=== PATIENT | male | born 1940 | race Caucasian/White ===

== ENCOUNTER 2022-08-25 07:26 | Outpatient (RCR) | payer OTHER, SELFPAY | END 2022-11-20 09:09 | disposition home or self-care (01) | PROVIDERS: PCP Surgery; Visit Provider Family Medicine | DX: M47.816 Spondylosis without myelopathy or radiculopathy, lumbar region (principal); S39.012D Strain of muscle, fascia and tendon of lower back, subsequent encounter; Z51.89 Encounter for other specified aftercare | CPT/HCPCS: 97110; 97162 ==

== ENCOUNTER 2024-01-22 11:58 | Inpatient (IN) | payer MEDICARE, BC, SELFPAY ==
[2024-01-22] VITALS (99 sets, daily range): BP systolic 78–141; BP diastolic 44–77; PULSE 43–100; RESP 16–20; TEMP 36.3–36.9; O2SAT 82–100; BMI 24.3; BMI 25.4
--- NOTE | 2024-01-22 12:34 | ED.DIZZY ---
HPI - Dizziness General Time Seen by Provider: 12:34 <Brenda Sorensen MD - Last Filed: 01/22/24 16:19> Date Seen: 01/22/24 <Bernda Sorensen MD - Last Filed: 01/22/24 16:19> Chief Complaint: Dizziness/Vertigo <Brenda Sorensen MD - Last Filed: 01/22/24 16:19> Stated Complaint: doesnt feel right, sweating <Brenda Sorensen MD - Last Filed: 01/22/24 16:19> Time Seen by Provider: 01/22/24 12:43 <Brenda Sorensen MD - Last Filed: 01/22/24 16:19> Source: patient, RN notes reviewed and old records reviewed <Brenda Sorensen MD - Last Filed: 01/22/24 16:19> Mode of arrival: ambulatory <Brenda Sorensen MD - Last Filed: 01/22/24 16:19> Limitations: no limitations <Brenda Sorensen MD - Last Filed: 01/22/24 16:19> History of Present Illness HPI Narrative: There is very pleasant 84-year-old male with a history of coronary artery disease but no past history of heart attack or stents, history of polymyalgia rheumatica who comes to the emergency room not feeling well. Patient notes that last night he seemed more thirsty than normal and he noticed a pain on the top of his left foot. He did not recall any trauma in the area. Today he feels lightheaded and not well with achy muscles. He notes that the redness on his foot has now extended to his leg. Upon further reflection he does remember having a cut on his toenail on the same foot when he went for his pedicure last week. The toe itself does not hurt. He has not had a fever at home. He denies chest pain or shortness of breath. No history of MRSA or difficult to treat infections. Patient did have a history of polymyalgia rheumatica and was treated with methotrexate up until 1 year ago when he discontinued it. No problems since that time. <Brenda Sorensen MD - Last Filed: 01/22/24 16:19> Related Data Home Medications: Home Medications ?Medication ?Instructions ?Recorded ?Confirmed aspirin 81 mg tablet,delayed 81 mg PO DAILY 05/03/22 01/22/24 release ascorbic acid (vitamin C) 1,000 mg 1 g PO DAILY 01/22/24 01/22/24 tablet cephalexin 500 mg capsule 2,000 mg PO ONCE PRN 01/22/24 01/22/24 cholecalciferol (vitamin D3) 50 50 mcg PO DAILY 01/22/24 01/22/24 mcg (2,000 unit) capsule cyanocobalamin (vitamin B-12) 1,000 mcg sublingual DAILY 01/22/24 01/22/24 1,000 mcg sublingual lozenge ipratropium bromide 42 mcg (0.06 2 spray intranasal HS PRN 01/22/24 01/22/24 %) nasal spray magnesium 250 mg tablet 250 mg PO DAILY 01/22/24 01/22/24 pravastatin 10 mg tablet 10 mg PO HS 01/22/24 01/22/24 trazodone 50 mg tablet 25 - 50 mg PO HS PRN insomnia 01/22/24 01/22/24 <Brenda Sorensen MD - Last Filed: 01/22/24 16:19> Allergies/Adverse Reactions: Allergies Allergy/AdvReac Type Severity Reaction Status Date / Time amoxicillin Allergy Rash Verified 01/22/24 16:06 penicillin V Allergy Rash Verified 01/22/24 16:06 <Brenda Sorensen MD - Last Filed: 01/22/24 16:19> Review of Systems Status of ROS: Reports: 10 or more systems reviewed and unremarkable except as noted in History and below <Brenda Sorensen MD - Last Filed: 01/22/24 16:19> Const: Reports: fatigue; Denies: fever or chills <Brenda Sorensen MD - Last Filed: 01/22/24 16:19> Eyes: Denies: change in vision <Brenda Sorensen MD - Last Filed: 01/22/24 16:19> ENMT: Denies: throat pain, neck pain, throat swelling, nasal discharge or nasal congestion <Brenda Sorensen MD - Last Filed: 01/22/24 16:19> Cardio: Reports: lightheadedness; Denies: chest pain, palpitations, swelling of feet/ankles or shortness of breath with exertion <Brenda Sorensen MD - Last Filed: 01/22/24 16:19> Resp: Denies: shortness of breath or cough <Brenda Sorensen MD - Last Filed: 01/22/24 16:19> GI: Denies: abdominal pain, nausea or vomiting <Brenda Sorensen MD - Last Filed: 01/22/24 16:19> : Denies: painful urination <Brenda Sorensen MD - Last Filed: 01/22/24 16:19> Musculo: Reports: extremity pain; Denies: back pain or neck pain <Brenda Sorensen MD - Last Filed: 01/22/24 16:19> Integ/Breast: Reports: redness and skin tenderness <Brenda Sorensen MD - Last Filed: 01/22/24 16:19> Neuro: Denies: headache <Brenda Sorensen MD - Last Filed: 01/22/24 16:19> Endo: Reports: fatigue <Brenda Sorensen MD - Last Filed: 01/22/24 16:19> Allergy/Immuno: Denies: throat swelling <Brenda Sorensen MD - Last Filed: 01/22/24 16:19> [facility] Medical History: Medical History Polymyalgia rheumatica ?M35.3 - Polymyalgia rheumatica (ICD-10) Squamous carcinoma Rheumatoid arthritis ?M06.9 - Rheumatoid arthritis, unspecified (ICD-10) <Brenda Sorensen MD - Last Filed: 01/22/24 16:19> Surgical History: Surgical History History of arthroscopy of right knee (01/16/06) ?Z98.890 - Other specified postprocedural states (ICD-10) 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) ?Z96.641 - Presence of right artificial hip joint (ICD-10) 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/19) ?Z96.642 - Presence of left artificial hip joint (ICD-10) H/O prostatectomy ?Z90.79 - Acquired absence of other genital organ(s) (ICD-10) H/O inguinal hernia repair (~2007) ?Z98.890 - Other specified postprocedural states (ICD-10) ?Z87.19 - Personal history of other diseases of the digestive system (ICD-10) 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) ?Z98.890 - Other specified postprocedural states (ICD-10) 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 He is not in any acute distress. His mentation is normal as is his speech. He has some slight pallor. EOM is full, face symmetrical, moist mucous membranes. Heart is with a regular rate and rhythm. Lungs are clear bilaterally. Abdomen soft nontender. Examination of the lower extremity shows erythema on the dorsum of his foot with some PT erickson I extending up onto the knee it is light pink erythema. It is well demarcated. Examination of his toes shows the medial aspect of his distal nail appears to have been cut short in there is a slight scabbing or erythema around the medial edge of the nail. Otherwise moving all extremities. <Brenda Sorensen MD - Last Filed: 01/22/24 16:19> Const: Vital Signs, click to edit/add: Vital Signs - 24 hr 01/22/24 12:08 01/22/24 12:24 01/22/24 12:30 Temperature 97.3 F L Pulse Rate 57 L 61 Pulse Rate [Right Pulse Oximeter] 69 Respiratory Rate 18 Blood Pressure 85/49 L Blood Pressure [Ri ght Upper Arm] 79/44 L Pulse Oximetry 95 96 97 Oxygen Delivery Me thod Room Air 01/22/24 12:31 01/22/24 12:32 01/22/24 12:35 Temperature Pulse Rate 56 L 57 L Pulse Rate [Right Pulse Oximeter] Respiratory Rate Blood Pressure 79/46 L 81/49 L Blood Pressure [Ri ght Upper Arm] Pulse Oximetry 95 97 Oxygen Delivery Me thod 01/22/24 12:42 01/22/24 12:45 01/22/24 12:51 Temperature Pulse Rate 59 L 59 L 56 L Pulse Rate [Right Pulse Oximeter] Respiratory Rate Blood Pressure 82/48 L 78/47 L Blood Pressure [Ri ght Upper Arm] Pulse Oximetry 96 96 96 Oxygen Delivery Me thod 01/22/24 13:00 01/22/24 13:02 01/22/24 13:11 Temperature Pulse Rate 56 L 51 L 55 L Pulse Rate [Right Pulse Oximeter] Respiratory Rate Blood Pressure 79/47 L 79/47 L Blood Pressure [Ri ght Upper Arm] Pulse Oximetry 96 97 97 Oxygen Delivery Me thod 01/22/24 13:15 01/22/24 13:22 01/22/24 13:23 Temperature Pulse Rate 55 L 57 L 53 L Pulse Rate [Right Pulse Oximeter] Respiratory Rate Blood Pressure 83/49 L Blood Pressure [Ri ght Upper Arm] Pulse Oximetry 97 97 97 Oxygen Delivery Me thod 01/22/24 13:31 01/22/24 13:32 01/22/24 13:42 Temperature Pulse Rate 56 L 59 L 56 L Pulse Rate [Right Pulse Oximeter] Respiratory Rate Blood Pressure 82/46 L 87/44 L Blood Pressure [Ri ght Upper Arm] Pulse Oximetry 96 98 96 Oxygen Delivery Me thod 01/22/24 13:45 01/22/24 13:52 01/22/24 13:58 Temperature Pulse Rate 55 L 55 L 43 L Pulse Rate [Right Pulse Oximeter] Respiratory Rate Blood Pressure 80/48 L 83/46 L Blood Pressure [Ri ght Upper Arm] Pulse Oximetry 98 98 99 Oxygen Delivery Me thod 01/22/24 14:00 01/22/24 14:04 01/22/24 14:07 Temperature Pulse Rate 44 L 48 L 47 L Pulse Rate [Right Pulse Oximeter] Respiratory Rate Blood Pressure 120/62 116/66 Blood Pressure [Ri ght Upper Arm] Pulse Oximetry 97 100 94 Oxygen Delivery Me thod 01/22/24 14:12 01/22/24 14:15 01/22/24 14:17 Temperature Pulse Rate 61 45 L 54 L Pulse Rate [Right Pulse Oximeter] Respiratory Rate Blood Pressure 102/48 L 113/57 L Blood Pressure [Ri ght Upper Arm] Pulse Oximetry 95 96 96 Oxygen Delivery Me thod 01/22/24 14:22 01/22/24 14:27 01/22/24 14:30 Temperature Pulse Rate 64 61 52 L Pulse Rate [Right Pulse Oximeter] Respiratory Rate Blood Pressure 129/59 L 125/56 L Blood Pressure [Ri ght Upper Arm] Pulse Oximetry 97 92 97 Oxygen Delivery Me thod 01/22/24 14:32 01/22/24 14:33 01/22/24 14:37 Temperature Pulse Rate 46 L 53 L 49 L Pulse Rate [Right Pulse Oximeter] Respiratory Rate Blood Pressure 127/63 120/58 L Blood Pressure [Ri ght Upper Arm] Pulse Oximetry 97 96 98 Oxygen Delivery Me thod 01/22/24 14:41 01/22/24 14:45 01/22/24 14:46 Temperature Pulse Rate 52 L 49 L 58 L Pulse Rate [Right Pulse Oximeter] Respiratory Rate Blood Pressure 127/61 125/64 Blood Pressure [Ri ght Upper Arm] Pulse Oximetry 96 96 91 Oxygen Delivery Me thod 01/22/24 14:51 01/22/24 14:57 01/22/24 15:02 Temperature Pulse Rate 55 L 61 73 Pulse Rate [Right Pulse Oximeter] Respiratory Rate Blood Pressure 122/60 122/58 L Blood Pressure [Ri ght Upper Arm] Pulse Oximetry 98 82 L 97 Oxygen Delivery Me thod 01/22/24 15:12 01/22/24 15:15 01/22/24 15:22 Temperature Pulse Rate 67 63 72 Pulse Rate [Right Pulse Oximeter] Respiratory Rate Blood Pressure 130/50 L 98/51 L Blood Pressure [Ri ght Upper Arm] Pulse Oximetry 96 96 90 Oxygen Delivery Mn thod 01/22/24 15:30 01/22/24 15:32 01/22/24 15:42 Temperature Pulse Rate 86 87 77 Pulse Rate [Right Pulse Oximeter] Respiratory Rate Blood Pressure 95/67 105/76 Blood Pressure [Ri ght Upper Arm] Pulse Oximetry 95 95 96 Oxygen Delivery Me thod 01/22/24 15:45 01/22/24 15:52 01/22/24 16:17 Temperature Pulse Rate 83 100 Pulse Rate [Right Pulse Oximeter] Respiratory Rate Blood Pressure 111/63 Blood Pressure [Ri ght Upper Arm] Pulse Oximetry 96 95 Oxygen Delivery Me thod 01/22/24 16:19 01/22/24 16:21 01/22/24 16:32 Temperature Pulse Rate 96 96 Pulse Rate [Right Pulse Oximeter] Respiratory Rate Blood Pressure 120/73 104/52 L Blood Pressure [Ri ght Upper Arm] Pulse Oximetry 92 94 Oxygen Delivery Me thod 01/22/24 16:41 01/22/24 16:45 01/22/24 16:45 Temperature 98.0 F Pulse Rate 67 75 Pulse Rate [Right Pulse Oximeter] Respiratory Rate 20 Blood Pressure Blood Pressure [Ri ght Upper Arm] Pulse Oximetry 92 90 Oxygen Delivery Me thod 01/22/24 16:47 01/22/24 16:48 01/22/24 17:00 Temperature Pulse Rate 69 68 67 Pulse Rate [Right Pulse Oximeter] Respiratory Rate Blood Pressure 101/53 L Blood Pressure [Ri ght Upper Arm] Pulse Oximetry 91 95 95 Oxygen Delivery Me thod 01/22/24 17:01 01/22/24 17:15 01/22/24 17:16 Temperature Pulse Rate 66 62 63 Pulse Rate [Right Pulse Oximeter] Respiratory Rate Blood Pressure 95/50 L 90/49 L Blood Pressure [Ri ght Upper Arm] Pulse Oximetry 95 94 96 Oxygen Delivery Me thod 01/22/24 17:17 01/22/24 17:30 01/22/24 17:31 Temperature Pulse Rate 67 68 67 Pulse Rate [Right Pulse Oximeter] Respiratory Rate Blood Pressure 91/57 L Blood Pressure [Ri ght Upper Arm] Pulse Oximetry 96 94 94 Oxygen Delivery Me thod 01/22/24 17:45 01/22/24 17:47 Temperature Pulse Rate 80 71 Pulse Rate [Right Pulse Oximeter] Respiratory Rate Blood Pressure 98/71 Blood Pressure [Ri ght Upper Arm] Pulse Oximetry 94 95 Oxygen Delivery Me thod <Brenda Sorensen MD - Last Filed: 01/22/24 16:19> Vital Signs, click to edit/add: Vital Signs - 24 hr 01/22/24 12:08 01/22/24 12:24 01/22/24 12:30 Temperature 97.3 F L Pulse Rate 57 L 61 Pulse Rate [Right Pulse Oximeter] 69 Respiratory Rate 18 Blood Pressure 85/49 L Blood Pressure [Ri ght Upper Arm] 79/44 L Pulse [facility]ximetry 95 96 [facility] 01/[facility]/24 12:31 01/22/24 12:32 01/22/24 12:35 Temperature Pulse Rate 56 L 57 L Pulse Rate [Right Pulse Oximeter] Respiratory Rate Blood Pressure 79/46 L 81/49 L Blood Pressure [Ri ght Upper Arm] Pulse Oximetry 95 97 Oxygen Delivery Me od 01/22/24 12:42 01/22/24 12:45 01/22/24 12:51 Temperature Pulse Rate 59 L 59 L 56 L Pulse Rate [Right Pulse Oximeter] Respiratory Rate Blood Pressure 82/48 L 78/47 L Blood Pressure [Ri ght Upper Arm] Pulse Oximetry 96 96 [facility] 01/[facility]/24 13:00 01/22/24 13:02 01/22/24 13:11 Temperature Pulse Rate 56 L 51 L 55 L Pulse Rate [Right Pulse Oximeter] Respiratory Rate Blood Pressure 79/47 L 79/47 L Blood Pressure [Ri ght Upper Arm] Pulse Oximetry 96 97 97 [facility] 01/[facility]/24 13:15 01/22/24 13:22 01/22/24 13:23 Temperature Pulse Rate 55 L 57 L 53 L Pulse Rate [Right Pulse Oximeter] Respiratory Rate Blood Pressure 83/49 L Blood Pressure [Ri ght Upper Arm] Pulse Oximetry 97 97 97 [facility] 01/[facility]/24 13:31 01/22/24 13:32 01/22/24 13:42 Temperature Pulse Rate 56 L 59 L 56 L Pulse Rate [Right Pulse Oximeter] Respiratory Rate Blood Pressure 82/46 L 87/44 L Blood Pressure [Ri ght Upper Arm] Pulse Oximetry 96 98 96 [facility] 01/22/24 13:45 01/22/24 13:52 01/22/24 13:58 Temperature Pulse Rate 55 L 55 L 43 L Pulse Rate [Right Pulse Oximeter] Respiratory Rate Blood Pressure 80/48 L 83/46 L Blood Pressure [Ri ght Upper Arm] Pulse Oximetry 98 98 99 Oxygen Delivery Me thod 01/22/24 14:00 01/22/24 14:04 01/22/24 14:07 Temperature Pulse Rate 44 L 48 L 47 L Pulse Rate [Right Pulse Oximeter] Respiratory Rate Blood Pressure 120/62 116/66 Blood Pressure [Ri ght Upper Arm] Pulse Oximetry 97 100 94 Oxygen Delivery Me thod 01/22/24 14:12 01/22/24 14:15 01/22/24 14:17 Temperature Pulse Rate 61 45 L 54 L Pulse Rate [Right Pulse Oximeter] Respiratory Rate Blood Pressure 102/48 L 113/57 L Blood Pressure [Ri ght Upper Arm] Pulse Oximetry 95 96 96 Oxygen Delivery Me thod 01/22/24 14:22 01/22/24 14:27 01/22/24 14:30 Temperature Pulse Rate 64 61 52 L Pulse Rate [Right Pulse Oximeter] Respiratory Rate Blood Pressure 129/59 L 125/56 L Blood Pressure [Ri ght Upper Arm] Pulse Oximetry 97 92 97 Oxygen Delivery Me thod 01/22/24 14:32 01/22/24 14:33 01/22/24 14:37 Temperature Pulse Rate 46 L 53 L 49 L Pulse Rate [Right Pulse Oximeter] Respiratory Rate Blood Pressure 127/63 120/58 L Blood Pressure [Ri ght Upper Arm] Pulse Oximetry 97 96 98 Oxygen Delivery Me thod 01/22/24 14:41 01/22/24 14:45 01/22/24 14:46 Temperature Pulse Rate 52 L 49 L 58 L Pulse Rate [Right Pulse Oximeter] Respiratory Rate Blood Pressure 127/61 125/64 Blood Pressure [Ri ght Upper Arm] Pulse Oximetry 96 96 91 Oxygen Delivery Me thod 01/22/24 14:51 01/22/24 14:57 01/22/24 15:02 Temperature Pulse Rate 55 L 61 73 Pulse Rate [Right Pulse Oximeter] Respiratory Rate Blood Pressure 122/60 122/58 L Blood Pressure [Ri ght Upper Arm] Pulse Oximetry 98 82 L 97 Oxygen Delivery Me thod 01/22/24 15:12 01/22/24 15:15 01/22/24 15:22 Temperature Pulse Rate 67 63 72 Pulse Rate [Right Pulse Oximeter] Respiratory Rate Blood Pressure 130/50 L 98/51 L Blood Pressure [Ri ght Upper Arm] Pulse Oximetry 96 96 90 Oxygen Delivery Me thod 01/22/24 15:30 01/22/24 15:32 01/22/24 15:42 Temperature Pulse Rate 86 87 77 Pulse Rate [Right Pulse Oximeter] Respiratory Rate Blood Pressure 95/67 105/76 Blood Pressure [Ri ght Upper Arm] Pulse Oximetry 95 95 96 Oxygen Delivery Me thod 01/22/24 15:45 01/22/24 15:52 01/22/24 16:17 Temperature Pulse Rate 83 100 Pulse Rate [Right Pulse Oximeter] Respiratory Rate Blood Pressure 111/63 Blood Pressure [Ri ght Upper Arm] Pulse Oximetry 96 95 Oxygen Delivery Me thod 01/22/24 16:19 01/22/24 16:21 01/22/24 16:32 Temperature Pulse Rate 96 96 Pulse Rate [Right Pulse Oximeter] Respiratory Rate Blood Pressure 120/73 104/52 L Blood Pressure [Ri ght Upper Arm] Pulse Oximetry 92 94 Oxygen Delivery Me thod 01/22/24 16:41 01/22/24 16:45 01/22/24 16:45 Temperature 98.0 F Pulse Rate 67 75 Pulse Rate [Right Pulse Oximeter] Respiratory Rate 20 Blood Pressure Blood Pressure [Ri ght Upper Arm] Pulse Oximetry 92 90 Oxygen Delivery Me thod 01/22/24 16:47 01/22/24 16:48 01/22/24 17:00 Temperature Pulse Rate 69 68 67 Pulse Rate [Right Pulse Oximeter] Respiratory Rate Blood Pressure 101/53 L Blood Pressure [Ri ght Upper Arm] Pulse Oximetry 91 95 95 Oxygen Delivery Me thod 01/22/24 17:01 01/22/24 17:15 01/22/24 17:16 Temperature Pulse Rate 66 62 63 Pulse Rate [Right Pulse Oximeter] Respiratory Rate Blood Pressure 95/50 L 90/49 L Blood Pressure [Ri ght Upper Arm] Pulse Oximetry 95 94 96 Oxygen Delivery Me thod 01/22/24 17:17 01/22/24 17:30 01/22/24 17:31 Temperature Pulse Rate 67 68 67 Pulse Rate [Right Pulse Oximeter] Respiratory Rate Blood Pressure 91/57 L Blood Pressure [Ri ght Upper Arm] Pulse Oximetry 96 94 94 Oxygen Delivery Me thod 01/22/24 17:45 01/22/24 17:47 Temperature Pulse Rate 80 71 Pulse Rate [Right Pulse Oximeter] Respiratory Rate Blood Pressure 98/71 Blood Pressure [Ri ght Upper Arm] Pulse Oximetry 94 95 Oxygen Delivery Me thod <Chico Delgado DO - Last Filed: 01/22/24 18:11> Documenting provider has reviewed patient's vital signs: yes <Brenda Sorensen MD - Last Filed: 01/22/24 16:19> Course Course ED Course: At this time I have significant concerns regarding cellulitis with sepsis. Patient is hypotensive at this time although he has a normal pulse. He is afebrile. Given this will obtain blood cultures as well as CBC, comprehensive, CRP, sed rate. Will give 1 L of normal saline with plan for 30 mils per kg. I considered other diagnoses such as PE but patient is not tachycardic, not hypoxic has no complaints of shortness of breath or chest and diarrhea. Considered COVID but it appears that we have an obvious source of infection. <Brenda Sorensen MD - Last Filed: 01/22/24 16:19> Reevaluation(s) Reevaluation #1: At the end of 1-1/2 L of fluid bolus patient has minimally improved blood pressures and therefore will initiate low-dose Levophed. Vancomycin 2 g and Cipro 400 mg IV have been ordered. These were discussed with pharmacy. Main concern of course is MRSA but given the fact that patient had been soaking in water at a nail salon will also need to cover for Gram-negative and Pseudomonas and therefore Cipro 400 mg IV has been given. <Brenda Sorensen MD - Last Filed: 01/22/24 16:19> Reevaluation #2: Patient noted to have episode of worsening bradycardia after initiation of vancomycin and norepinephrine. Patient noted to have redness around the IV infusion site of vancomycin and thus this was stopped. Bradycardia was into the 30s but patient was asymptomatic with this. EKG shows AFib with slow ventricular response. Occasional PVC and PAC. Initial EKG showed sinus bradycardia at a rate of 57. Patient has no chest pain or shortness of breath this time. Initial discussion regarding increasing nor epi as blood pressures were around 100 but subsequent blood pressure returns at 0122 systolic. Instead we continue to monitor his heart rate and it slowly improves. We do note that with movement heart rate improved to 60s. Again asymptomatic. Troponin has been ordered. <Brenda Sorensen MD - Last Filed: 01/22/24 16:19> Reevaluation #3: Patient given a full 2 L of fluids. Vancomycin included additional 400 mL and thus patient has been given a total of 2400 mL. Patient's heart rate rebounded to his normal value of the high 50s 60. He states his normal blood pressure is 104 and thus we have been able to discontinue norepinephrine. Approximately 5 minutes after this patient suddenly developed left-sided abdominal pain. It is somewhat palpable in the lower ribcage left lateral abdomen. He is rating it a 5/10. He has no nausea. When he moves he can make the pain worse. He will be undergoing CT of the chest abdomen pelvis shortly. <Brenda Sorensen MD - Last Filed: 01/22/24 16:19> Additional Reevaluation(s): Second troponin negative. Patient goes to CT now experiencing hip pain. I am wondering if this is secondary to vancomycin and its affect on the bacteria causing this infection. <Brenda Sorensen MD - Last Filed: 01/22/24 16:19> Vital Signs Vital signs: Initial Vital Signs Temperature 97.3 F L 01/22/24 12:08 Temperature Source Temporal Artery Scan 01/22/24 12:08 Pulse Rate 69 01/22/24 12:08 Pulse Rhythm Regular 01/22/24 12:08 Respiratory Rate 18 01/22/24 12:08 Blood Pressure 79/44 L 01/22/24 12:08 Blood Pressure Mean 55 L 01/22/24 12:08 Blood Pressure Position Sitting 01/22/24 12:08 Pulse Oximetry 95 01/22/24 12:08 Oxygen Delivery Method Room Air 01/22/24 12:08 Vital Signs Temperature 97.3 F L 01/22/24 12:08 Pulse Rate 69 01/22/24 12:08 Respiratory Rate 18 01/22/24 12:08 Blood Pressure 79/44 L 01/22/24 12:08 Pulse Oximetry 95 01/22/24 12:08 Oxygen Delivery Method Room Air 01/22/24 12:08 Temperature 98.0 F 01/22/24 16:45 Pulse Rate 71 01/22/24 17:47 Respiratory Rate 20 01/22/24 16:45 Blood Pressure 98/71 01/22/24 17:47 Pulse Oximetry 95 01/22/24 17:47 Oxygen Delivery Method Room Air 01/22/24 12:08 <Brenda Sorensen MD - Last Filed: 01/22/24 16:19> Initial Vital Signs Temperature 97.3 F L 01/22/24 12:08 Temperature Source Temporal Artery Scan 01/22/24 12:08 Pulse Rate 69 01/22/24 12:08 Pulse Rhythm Regular 01/22/24 12:08 Respiratory Rate 18 01/22/24 12:08 Blood Pressure 79/44 L 01/22/24 12:08 Blood Pressure Mean 55 L 01/22/24 12:08 Blood Pressure Position Sitting 01/22/24 12:08 Pulse Oximetry 95 01/22/24 12:08 Oxygen Delivery Method Room Air 01/22/24 12:08 Vital Signs Temperature 97.3 F L 01/22/24 12:08 Pulse Rate 69 01/22/24 12:08 Respiratory Rate 18 01/22/24 12:08 Blood Pressure 79/44 L 01/22/24 12:08 Pulse Oximetry 95 01/22/24 12:08 Oxygen Delivery Method Room Air 01/22/24 12:08 Temperature 98.0 F 01/22/24 16:45 Pulse Rate 71 01/22/24 17:47 Respiratory Rate 20 01/22/24 16:45 Blood Pressure 98/71 01/22/24 17:47 Pulse Oximetry 95 01/22/24 17:47 Oxygen Delivery Method Room Air 01/22/24 12:08 <Chico Delgado DO - Last Filed: 01/22/24 18:11> Medications Administered Medications: Generic Name Dose Route Start Last Admin Trade Name Freq PRN Reason Stop Dose Admin Norepinephrine/Dextrose 4,000 mcg in 250 mls @ 27.216 mls/hr 01/22/24 13:45 01/22/24 16:05 Norepinephrine Infusion IV 0 mcg/kg/min CONT YAMILETH 0 mls/hr Titration Protocol 0.1 MCG/KG/MIN Discontinued Medications Generic Name Dose Route Start Last Admin Trade Name Freq PRN Reason Stop Dose Admin Sodium Chloride 1,000 mls @ 1,000 mls/hr 01/22/24 12:45 01/22/24 13:41 0.9 % Sodium Chloride 1000 Ml IV 01/22/24 13:44 Infused .Q1H YAMILETH Infusion Sodium Chloride 500 mls @ 1,000 mls/hr 01/22/24 12:45 01/22/24 16:33 0.9 % Sodium Chloride 500 Ml IV 01/22/24 13:14 Infused .Q30M YAMILETH Infusion Vancomycin/PEG/NADA/Lysine/Water 2 gm in 400 mls @ 200 mls/hr 01/22/24 12:47 01/22/24 16:15 Vancomycin 2 Gm/400 Ml IVPB 01/22/24 14:46 Infused ONCE ONE Infusion Protocol Ciprofloxacin 400 mg in 200 mls @ 200 mls/hr 01/22/24 12:48 01/22/24 16:34 Ciprofloxacin IVPB 01/22/24 13:47 Infused ONCE ONE Infusion Sodium Chloride 500 mls @ 500 mls/hr 01/22/24 15:42 01/22/24 16:00 0.9 % Sodium Chloride 500 Ml IV 01/22/24 16:41 Infused .Q1H ONE Infusion <Brenda Sorensen MD - Last Filed: 01/22/24 16:19> Generic Name Dose Route Start Last Admin Trade Name Freq PRN Reason Stop Dose Admin Norepinephrine/Dextrose 4,000 mcg in 250 mls @ 27.216 mls/hr 01/22/24 13:45 01/22/24 16:05 Norepinephrine Infusion IV 0 mcg/kg/min CONT YAMILETH 0 mls/hr Titration Protocol 0.1 MCG/KG/MIN Discontinued Medications Generic Name Dose Route Start Last Admin Trade Name Freq PRN Reason Stop Dose Admin Sodium Chloride 1,000 mls @ 1,000 mls/hr 01/22/24 12:45 01/22/24 13:41 0.9 % Sodium Chloride 1000 Ml IV 01/22/24 13:44 Infused .Q1H YAMILETH Infusion Sodium Chloride 500 mls @ 1,000 mls/hr 01/22/24 12:45 01/22/24 16:33 0.9 % Sodium Chloride 500 Ml IV 01/22/24 13:14 Infused .Q30M YAMILETH Infusion Vancomycin/PEG/NADA/Lysine/Water 2 gm in 400 mls @ 200 mls/hr 01/22/24 12:47 01/22/24 16:15 Vancomycin 2 Gm/400 Ml IVPB 01/22/24 14:46 Infused ONCE ONE Infusion Protocol Ciprofloxacin 400 mg in 200 mls @ 200 mls/hr 01/22/24 12:48 01/22/24 16:34 Ciprofloxacin IVPB 01/22/24 13:47 Infused ONCE ONE Infusion Sodium Chloride 500 mls @ 500 mls/hr 01/22/24 15:42 01/22/24 16:00 0.9 % Sodium Chloride 500 Ml IV 01/22/24 16:41 Infused .Q1H ONE Infusion <Chico Delgado DO - Last Filed: 01/22/24 18:11> MDM - Dizziness MDM Narrative Medical decision making narrative: 1. Sepsis-patient does not meet severe sepsis criteria - but significant concerns regarding obvious infection and persisting hypotension. White count is normal but a CRP is elevated at 8.6. Blood cultures have been obtained. Patient is being treated with vancomycin for MRSA coverage. Unfortunately we do not have any fluid for culture or analysis. Due to low blood pressures in spite of fluid bolus of 1500 mL we did start Levophed and patient had a positive response. Notes an additional 900 mL of fluid-500 mL normal saline and 400 of vancomycin solution for a total of 2400 mL of solution has been given. We were able to taper patient off of Levophed and systolic blood pressure is now 97. Heart rate in the 60s. 2. Atrial fibrillation with slow ventricular response-patient has baseline lower heart rate in the 50s and 60s but today had periods of asymptomatic bradycardia in the high 30s. I am wondering if this was packed wraps a vasovagal reaction secondary to vancomycin as patient did have erythema around the infusion site. This has resolved at this time. EKG did show a fib with slow ventricular response but patient now has a intermittent sinus rhythm. Will speak to accepting provider in regards to this new development. 3. Abdominal pain-new in onset rating 5/10: Abdominal CT shows 4. History of polymyalgia rheumatica-sed rate is 16. Has not used methotrexate knee urine is not currently on any steroids. 5. Disposition -admit to the [facility] under the care of Dr Cantu, hospitalist. <Brenda Sorensen MD - Last Filed: 01/22/24 16:19> 1. Sepsis-patient does not meet severe sepsis criteria - but significant concerns regarding obvious infection and persisting hypotension. White count is normal but a CRP is elevated at 8.6. Blood cultures have been obtained. Patient is being treated with vancomycin for MRSA coverage. Unfortunately we do not have any fluid for culture or analysis. Due to low blood pressures in spite of fluid bolus of 1500 mL we did start Levophed and patient had a positive response. Notes an additional 900 mL of fluid-500 mL normal saline and 400 of vancomycin solution for a total of 2400 mL of solution has been given. We were able to taper patient off of Levophed and systolic blood pressure is now 97. Heart rate in the 60s. 2. Atrial fibrillation with slow ventricular response-patient has baseline lower heart rate in the 50s and 60s but today had periods of asymptomatic bradycardia in the high 30s. I am wondering if this was packed wraps a vasovagal reaction secondary to vancomycin as patient did have erythema around the infusion site. This has resolved at this time. EKG did show a fib with slow ventricular response but patient now has a intermittent sinus rhythm. Will speak to accepting provider in regards to this new development. 3. Abdominal pain-new in onset rating 5/10: Abdominal CT shows 4. History of polymyalgia rheumatica-sed rate is 16. Has not used methotrexate knee urine is not currently on any steroids. 5. Disposition -admit to the [facility] under the care of Dr Cantu, hospitalist. Patient was signed out to me pending the results of his CT scan for he developed left upper quadrant pain. CT scan resolve some moderate splenomegaly but no other acute concerning abnormalities. Patient be accepted to the hospitalist service. <Chico Delgado DO - Last Filed: 01/22/24 18:11> Medical Records Attestation: I reviewed the patient's medical records. <Brenda Sorensen MD - Last Filed: 01/22/24 16:19> Lab Data Attestation: I reviewed the patient's lab results. <Brenda Sorensen MD - Last Filed: 01/22/24 16:19> Labs: Lab Results 01/22/24 01/22/24 01/22/24 Range/Units 12:40 12:44 15:53 WBC 6.85 (4.50-11.00) K/uL RBC 3.84 L (4.30-5.90) m/uL Hgb 11.5 L (13.5-17.5) gm/dL Hct 35.9 L (37.0-53.0) % MCV 94 (80-100) fL MCH 30 (26-34) pg MCHC 32 (32-36) gm/dL RDW Coeff of Jacob 14.2 (11.5-15.5) % Plt Count 80 L (140-440) K/uL Neut % (Auto) 88.7 H (42.0-72.0) % Lymph % (Auto) 6.1 L (20-44) % Reeves % (Auto) 4.5 (0.0-11.0) % Eos % (Auto) 0.0 (0.0-7.0) % Baso % (Auto) 0.3 (0.0-3.0) % Neut # (Auto) 6.10 (1.7-7.0) K/uL Lymph # (Auto) 0.40 L (0.90-2.90) K/uL Reeves # (Auto) 0.30 (0.00-0.90) K/UL Eos # (Auto) 0.00 (0.00-0.50) K/uL Baso # (Auto) 0.02 (0.00-0.30) K/uL Abs Immat Gran (auto) 0.03 (0.00-0.30) K/uL Imm/Tot Granulo (auto) 0.4 % ESR 16 H (2-15) mm/hr Sodium 132 L (135-149) mmol/L Potassium 3.6 (3.6-5.1) mmol/L Chloride 103 (96-114) mmol/L Carbon Dioxide 22 (20-32) mmol/L Anion Gap 7 (7-15) mEq/L BUN 23 (7-30) mg/dL Creatinine 0.9 (0.5-1.5) mg/dL Estimated Creat Clear 54.15 Estimated GFR 85 ml/min Glucose 107 (60-115) mg/dL Lactate 1.0 (0.5-1.9) mmol/L Calcium 8.6 (8.4-10.6) mg/dL Total Bilirubin 1.3 (0.1-1.5) mg/dL AST 25 (12-35) U/L ALT 13 (4-50) U/L Alkaline Phosphatase 58 (40-150) U/L C-Reactive Protein 8.6 H (0.5-1.0) mg/dL Total Protein 6.3 (6.0-8.3) g/dL Albumin 4.0 (3.3-5.0) g/dL POC Troponin I 0.02 0.02 (0.01-0.04) ng/ml <Brenda Sorensen MD - Last Filed: 01/22/24 16:19> Lab Results 01/22/24 01/22/24 01/22/24 Range/Units 12:40 12:44 15:53 WBC 6.85 (4.50-11.00) K/uL RBC 3.84 L (4.30-5.90) m/uL Hgb 11.5 L (13.5-17.5) gm/dL Hct 35.9 L (37.0-53.0) % MCV 94 (80-100) fL MCH 30 (26-34) pg MCHC 32 (32-36) gm/dL RDW Coeff of Jacob 14.2 (11.5-15.5) % Plt Count 80 L (140-440) K/uL Neut % (Auto) 88.7 H (42.0-72.0) % Lymph % (Auto) 6.1 L (20-44) % Reeves % (Auto) 4.5 (0.0-11.0) % Eos % (Auto) 0.0 (0.0-7.0) % Baso % (Auto) 0.3 (0.0-3.0) % Neut # (Auto) 6.10 (1.7-7.0) K/uL Lymph # (Auto) 0.40 L (0.90-2.90) K/uL Reeves # (Auto) 0.30 (0.00-0.90) K/UL Eos # (Auto) 0.00 (0.00-0.50) K/uL Baso # (Auto) 0.02 (0.00-0.30) K/uL Abs Immat Gran (auto) 0.03 (0.00-0.30) K/uL Imm/Tot Granulo (auto) 0.4 % ESR 16 H (2-15) mm/hr Sodium 132 L (135-149) mmol/L Potassium 3.6 (3.6-5.1) mmol/L Chloride 103 (96-114) mmol/L Carbon Dioxide 22 (20-32) mmol/L Anion Gap 7 (7-15) mEq/L BUN 23 (7-30) mg/dL Creatinine 0.9 (0.5-1.5) mg/dL Estimated Creat Clear 54.15 Estimated GFR 85 ml/min Glucose 107 (60-115) mg/dL Lactate 1.0 (0.5-1.9) mmol/L Calcium 8.6 (8.4-10.6) mg/dL Total Bilirubin 1.3 (0.1-1.5) mg/dL AST 25 (12-35) U/L ALT 13 (4-50) U/L Alkaline Phosphatase 58 (40-150) U/L C-Reactive Protein 8.6 H (0.5-1.0) mg/dL Total Protein 6.3 (6.0-8.3) g/dL Albumin 4.0 (3.3-5.0) g/dL POC Troponin I 0.02 0.02 (0.01-0.04) ng/ml <Chico Delgado, - Last Filed: 01/22/24 18:11> Imaging Data CT Chest/Ab/Pelvis: Attestation: I have reviewed the pertinent imaging results. <Brenda Sorensen MD - Last Filed: 01/22/24 16:19> I have reviewed the pertinent imaging results. <Chico Delgado DO - Last Filed: 01/22/24 18:11> Radiologist's impression: 1. No acute displaced rib fractures, pleural effusions or pneumothorax. 2. Scattered tree-in-bud nodularity of the right upper lobe inferiorly, suggestive of a nonspecific infectious versus inflammatory bronchiolitis. 3. Moderate splenomegaly. Correlate with physical examination. 4. Otherwise, no acute abdominopelvic pathology. 5. Small hiatal hernia. 6. Colonic diverticulosis without CT evidence of acute diverticulitis. Please note that all CT scans at this facility use dose modulation, iterative reconstruction, and/or weight-based dosing when appropriate to reduce radiation dose to as low as reasonably achievable. Dictated by Saúl Orantes MD @ 01/22/2024 6:06:43 PM <Chico Delgado DO - Last Filed: 01/22/24 18:11> ECG Data Attestation: I personally reviewed and interpreted this ECG as follows: <Brenda Sorensen MD - Last Filed: 01/22/24 16:19> ECG interpretation date: 01/22/24 <Brenda Sorensen MD - Last Filed: 01/22/24 16:19> Interpretation: EKG 1. By my read shows sinus bradycardia at a rate of 57. Occasional PAC is noted. No acute ST or T-wave changes are noted EKG 2. By my read shows AFib with slow ventricular response at a rate of 50. No acute ST or T-wave changes are noted. <Brenda Sorensen MD - Last Filed: 01/22/24 16:19> Critical Care Time Critical Care Time Critical Care Time: Yes Attestation: The patient required my highest level preparedness to intervene emergently and I personally spent this critical care time directly and personally managing the patient. This critical care time included: Obtaining a history; Examining the patient; Pulse oximetry; Ordering and reviewing of studies; Arranging urgent treatment with development of a management plan; Evaluation of patients response to treatment; Frequent reassessment discussions with other providers. This critical care time was performed to assess and manage the high probability of imminent life-threatening deterioration that could result in multiorgan failure. It was exclusive of separate billable procedures and treating other patients and teaching time. <Brenda Sorensen MD - Last Filed: 01/22/24 16:19> Total Critical Care Time in Minutes: 60 <Brenda Sorensen MD - Last Filed: 01/22/24 16:19> Discharge Plan Discharge Clinical Impression: Cellulitis, Sepsis, History of polymyalgia rheumatica <Brenda Sorensen MD - Last Filed: 01/22/24 16:19> Patient Disposition: Admitted As Observation <Brenda Sorensen MD - Last Filed: 01/22/24 16:19> Condition: Improved <Brenda Sorensen MD - Last Filed: 01/22/24 16:19>
[2024-01-22] MEDS: 0.9 % SODIUM CHLORIDE 1000 ml 1,000 ML IV (12:50)
[2024-01-22] MEDS: 0.9 % SODIUM CHLORIDE 500 ML 500 ML 1000 ML IV (12:55)
[2024-01-22 12:56] LABS: Basophils Absolute Auto 0.02 K/uL (0.00-0.30); Basophils Percent Auto 0.3 % (0.0-3.0); Hematocrit 35.9 % (37.0-53.0); Hemoglobin* 11.5 gm/dL (13.5-17.5); Immature Granulocytes Abs Auto 0.03 K/uL (0.00-0.30); Immature Granulocytes Pct Auto 0.4 %; Lymphocytes Percent Auto 6.1 % (20-44); Mean Corpuscular HGB Conc 32 gm/dL (32-36); Mean Corpuscular Hemoglobin 30 pg (26-34); Mean Corpuscular Volume 94 fL (80-100); Monocytes Percent Auto 4.5 % (0.0-11.0); Neutrophils Percent Auto 88.7 % (42.0-72.0); Platelet Count* 80 K/uL (140-440); RDW Coefficient of Variation % 14.2 % (11.5-15.5); Red Blood Count 3.84 m/uL (4.30-5.90); White Blood Count* 6.85 K/uL (4.50-11.00)
[2024-01-22 12:58] LABS: Slide Review Reflex No
[2024-01-22] MEDS: VANCOMYCIN 2 GM/400 ML 2 GM/400 ML PIGGYBACK IVPB (13:07)
[2024-01-22 13:11] LABS: Chloride* 103 mmol/L (96-114)
[2024-01-22 13:12] LABS: Potassium* 3.6 mmol/L (3.6-5.1); Sodium* 132 mmol/L (135-149)
[2024-01-22 13:14] LABS: Alkaline Phosphatase* 58 U/L (40-150); Anion Gap 7 mEq/L (7-15); Aspartate Amino Transferase* 25 U/L (12-35); Bilirubin Total* 1.3 mg/dL (0.1-1.5); Carbon Dioxide* 22 mmol/L (20-32); Creatinine* 0.9 mg/dL (0.5-1.5); Est. Creatinine Clearance* 54.15; Estimated Glomerular Filt Rate 85 ml/min; Total Protein* 6.3 g/dL (6.0-8.3)
[2024-01-22 13:15] LABS: Alanine Aminotransferase* 13 U/L (4-50); Blood Urea Nitrogen* 23 mg/dL (7-30); Calcium* 8.6 mg/dL (8.4-10.6); Glucose* 107 mg/dL (60-115)
[2024-01-22 13:17] LABS: C Reactive Protein* 8.6 mg/dL (0.5-1.0)
[2024-01-22 13:38] LABS: Erythrocyte SedimentationRate* 16 mm/hr (2-15)
--- OUTSIDE RECORDS SUMMARY | 2024-01-22 14:29 | XMS_ITS | Referral Summary ---
Author Organization [facility] Address [address] [place] [id number] Care Team Providers Care Terrazzo Worker Name Role Phone Elsewhere, Pcp Primary Care Provider Unavailabl e Source Comments Patient records contain information from all sites at [facility]. For routine questions regarding patient records, call [phone] during business hours, M-F 8:00 AM - 5:00 PM Central Time. Record requests for emergency care only can be directed to [phone] at any time.[facility] Encounters Date Type Department Care Team Description 01/22/2024 Refill Division of Rheumatology in [place], [place] [address] [place] [phone] Ashlee Lopez APRN, C.N.P. Med Refill 11/13/2023 2:45 PM CDT Office Visit Division of Rheumatology in [place], [place] [address] [place] [phone] Ashlee Lopez APRN, C.N.P. Polymyalgia Rheumatica (HCC) (Primary Dx) 11/05/2023 Clinical Communication Division of Rheumatology in [place], [place] [address] [place] [phone] Ashlee Lopez APRN, C.N.P. Return Visit 10/31/2023 Clinical Communication Division of Rheumatology in [place], [place] [address] [place] [phone] Ashlee Lopez APRN, C.N.P. Lab Monitoring (10/30/23) 10/30/2023 10:45 AM CDT Clinical Communication Virtual Review in [address] [phone] Pre-visit Intake from Last 3 Months Allergies Active Allergy Reactions Criticality Noted Date Comments Amoxicillin Rash 07/07/2006 Atorvastatin Headache 09/28/2022 House Dust Mite Other (see comments) 05/19/2014 Runny nose, itchy eyes, etc Penicillin V Rash High 06/02/2020 Pollen Extracts Other (see comments) 05/19/2014 Runny nose, itchy eyes, etc Medications Medication Sig Dispensed Refills Start Date End Date Status MAGNESIUM ORAL Take 400 mg by mouth daily. 10/10/2013 Active cyanocobalamin (VITAMIN B12) 1,[address] under the tongue. 11/19/2015 Active calcium carbonate 390 mg calcium (1,000 mg) tablet Active cholecalciferol (VITAMIN D3) 2,000 Unit tablet Take 2,000 Units by mouth. 05/03/2015 Active ascorbic acid, vitamin C, (VITAMIN C) 1,000 mg tablet Take 1,000 mg by mouth. 02/19/2018 Active acetaminophen (TYLENOL) 500 mg tablet as needed. 10/01/2019 Active melatonin 3 mg capsule Bedtime as needed Active fluticasone propionate (FLONASE) 50 mcg/actuation nasal spray INSTILL 2 SPRAYS TO BOTH NOSTRILS ONCE DAILY. 01/06/2021 Active hydrocortisone (HYTONE) 2.5 % cream APPLY TO ITCHY AREAS ON FACE 1-2X DAILY FOR 2 WEEKS , TAKE 2 WEEK BREAK THEN REPEAT NEEDED 03/08/2021 Active betamethasone dipropionate, augmented, (DIPROLENE) 0.05 % cream APPLY TO AFFECTED AREA OF FEET TWICE A DAY FOR UP TO 2 WEEKS AT A TIME NEEDED FOR FLARES 02/04/2021 Active ammonium lactate (AMLACTIN) 12 % cream 03/11/2021 Active sildenafiL (VIAGRA) 100 mg tablet Take 100 mg by mouth. 05/27/2021 Active omega-3 fatty acids-fish oil 340-1,000 mg per capsule Take 2 capsules by mouth daily. Active aspirin 81 mg chewable tablet Chew 81 mg. 04/17/2022 Active azelastine (ASTELIN) 137 mcg/spray (0.1 %) nasal spray 06/03/2022 Active cephalexin (KEFLEX) 500 mg capsule Take 2,000 mg by mouth once. 4 hours proir to dental appointment 09/28/2022 Active traZODone (DESYREL) 50 mg tablet Take by mouth at bedtime as needed. 07/06/2022 Active trospium (SANCTURA XR) 60 mg 24 hr capsule Take 1 capsule (60 mg total) by mouth every morning before breakfast. 30 capsule 3 05/22/2023 Active rosuvastatin (CRESTOR) 5 mg tablet Take 1 tablet by mouth at bedtime. 04/05/2023 Active ipratropium (Atrovent) 42 mcg (0.06 %) nasal spray Administer 2 sprays into each nostril as needed. 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 Myofascial Pain Syndrome 12/25/2018 Pain Left Lower Quadrant 09/11/2018 Abnormal Result Of Other Cardiovascular Function Study 03/26/2018 Polymyalgia Rheumatica 03/05/2018 Insomnia 06/30/2016 Pure Hypercholesterolemia 04/06/2016 Unspecified Inflammatory Spondylopathy Lumbar Re gion 10/23/2014 Impingement Syndrome Shoulder Right 10/14/2013 Loss Hearing Sensorineural 08/03/2011 Anxiety From General Medical Condition 9 Personal History Of Malignant Neoplasm Of Prosta te 08/27/2008 Primary Malignant Neoplasm Of Prostate 9 Rhinitis Allergic 04/17/2007 Irritable bowel syndrome 04/17/2007 Nocturia 04/17/2007 Immunizations Name Administration Dates Next Due HZV (ZOSTAVAX) 06/15/2008 HepA Adult 04/24/2007,04/13/2006 IPV 04/13/2006 Influenza TIV (IM) 02/01/2018 PCV13 05/11/2015 PPSV23 05/29/2017,03/19/2006 SARS-COV-2 (COVID-19) - PFIZ ER (Discontinued)(12 years or older) 12/30/2020 Tdap 03/25/2014 TyVi (inj) 04/27/2010,04/13/2006 Social History Tobacco Use Types Packs/Day Years Used Date Smoking Tobacco: Never Smokeless Tobacco: Never Tobacco Cessation:Counseling Given: Not Answered Alcohol Use Standard Drinks/Week Comments No 0 (1 standard drink = 0.6 oz pur e alcohol) Social Connection and Isolation Panel [NHANES] A nswer Date Recorded In a typical week, how many times do you talk on the phone with family, friends, or neighbors? Never 11/04/19 20 How often do you get togethe r with friends or relatives? Once a week 11/04/2019 How often do you attend chur ch or spiritism services? 1 to 4 times per year 11/04/2019 Active Member of Clubs or Organizations Not on f ile 11/04/2019 Attends Club or Organization Meetings Not on jong e 11/04/2019 Marital Status Not on file 11/04/2019 AUDIT-C Answer Date Recorded Frequency of Alcohol Consumption Never 01/21/2019 Average Number of Drinks Patient declined 2018 Frequency of Binge Drinking Never 12/30 Overall Financial Resource Strain (CARDIA) Answe r Date Recorded How hard is it for you to pa y for the very basics like food, housing, medical care, and heating? Not very hard 11/04/2019 PHQ-2 Answer Date Recorded PHQ-2 Score 0 10/01/2018 [facility] - Occupational Stress Questionnaire Answer Date Recorded Do you feel stress - tense, restless, nervous, or anxious, or unable to sleep at night because your mind is troubled all the time - these days? Rather much 11/04/2019 Exercise Vital Sign Answer Date Recorde d Days of Exercise per Week Not on file 2019 On average, how many minutes do you engage in exercise at this level? 70 min 11/04/2019 Hunger Vital Sign Answer Date Recorded Worried About Running Out of Food in the Last Ye ar Never true 01/21/2019 Ran Out of Food in the Last Year Never true 01/21/2019 PRAPARE - Transportation Answer Date Re corded Lack of Transportation (Medical) No 01/21/2019 Lack of Transportation (Non-Medical) No 01/21/2019 Nutrition Answer Date Recorded Nutrition: EVOO Fat Source Yes 11/03 On average, how many serving s of fruits and vegetables do you eat per day (serving size is equal to 1 cup or approximately the size of a tennis ball)? 6-7 11/04/2019 Dental Answer Date Recorded Dental: Regular Dentist Unknown 11/05/19 23 Education Answer Date Recorded What is the highest level of school you have completed or the highest degree you have received? 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 Sexual Orientation Bisexual 02/20/2020 4: 48 PM CDT Last Filed Vital Signs Vital Sign Reading Time Taken Comments Blood Pressure 106/66 11/13/2023 2:26 PM CDT Pulse 65 11/13/2023 2:26 PM CDT Temperature 36.2 ??C (97.2 ??F) 11/13/2023 2:26 PM CD T Respiratory Rate - - Oxygen Saturation 95% 07/25/2023 9:58 AM CDT room air Inhaled Oxygen Concentration - - Weight 72.8 kg (160 lb 7.9 oz) 11/13/2023 2:26 P M CDT Height 176.2 cm (5' 9.37) 11/13/2023 2:26 PM CD T Body Mass Index 23.45 11/13/2023 2:26 PM CDT Plan of Treatment Not on file Medical Devices Implanted Type Area Nurse Administrator Device Identifier Shelf Expiration Date Model / Serial / Lot Hip Implant Hip Implant Left: Hip Ocular Lens Ocular Lens Eye Description:Both eyes. Shoulder Implant Shoulder Implant Right: Shoulder Care Teams Terrazzo Worker Relationship Specialty Start Date End Date Elsewhere, Pcp PCP - General Internal Medicine 08/29/21
--- OUTSIDE RECORDS SUMMARY | 2024-01-22 14:29 | XMS_ITS | Encounter Summary ---
Author Organization [facility] Address [address] [place] [id number] Care Team Providers Care Pig Lead Melter Helper Name Role Phone Elsewhere, Pcp Primary Care Provider Unavailabl e Reason for Visit * Reason Comments Med Refill Encounter Details Date Type Department Care Team (Late st Contact Info) Description 01/22/2024 Refill Division of Rheumatology in [place], [place] [address] [place] [phone] Ashlee Lopez, NAGI, C.N.P. [address] [place] [phone] Med Refill Social History Tobacco Use Types Packs/Day Years Used Date Smoking Tobacco: Never Smokeless Tobacco: Never Alcohol Use Standard Drinks/Week Comments No 0 [...] often do you attend chur ch or pentecostalism services? 1 to 4 times per year [...] Answer Date Recorded PHQ-2 Score 0 10/01/2018 [facility] of Occupat ional Health - Occupational Stress [...] Date Recorded Dental: Regular Dentist Unknown 11/05/19 Education Answer Date Recorded What is the highest level of school you have completed or the highest degree you have received? 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
--- OUTSIDE RECORDS SUMMARY | 2024-01-22 14:29 | XMS_ITS ---
Author Organization [facility] Address [address] [place] [phone] Care Team Providers Care Tree Planter Name Role Phone Unavailable Unavailable Unavailable Surgery Details Not on file Complications Check Surgery Details section. Procedure Estimated Blood Loss Check Surgery Details section. Procedure Findings Check Surgery Details section. Procedure Specimens Taken Check Surgery Details section.
--- OUTSIDE RECORDS SUMMARY | 2024-01-22 14:29 | XMS_ITS | Clinical Summary ---
Author Organization [facility] Address [address] [place] [address] Care Team Providers Care Smoking Pipe Repairer Name Role Phone Elsewhere, Pcp Primary Care Provider Unavailabl e Source Comments Patient records contain information from all sites at [facility]. For routine questions regarding patient records, call [phone] during business hours, M-F 8:00 AM - 5:00 PM Central Time. Record requests for emergency care only can be directed to [phone] at any time.[facility] Allergies Active Allergy Reactions Criticality Noted Date [...] 04/17/2007 Irritable bowel syndrome 04/17/2007 Nocturia 04/17/2007 Encounters Date Type Department Care Team Description 01/22/2024 Refill Division of Rheumatology in [place], [place] [address] [place] [phone] Ashlee Lopez APRN, C.N.P. Med Refill 11/13/2023 2:45 PM CDT Office Visit Division of Rheumatology in [place], [place] [address] [place] [phone] Ashlee Lopez APRN, C.N.P. Polymyalgia Rheumatica (HCC) (Primary Dx) 11/05/2023 Clinical Communication Division of Rheumatology in [address] [phone] Ashlee Lopez APRN, C.N.P. Return Visit 10/31/2023 Clinical Communication Division of Rheumatology in [address] [phone] Ashlee Lopez APRN, C.N.P. Lab Monitoring (10/30/23) 10/30/2023 10:45 AM CDT Clinical Communication Virtual Review in [place], [place] 200 [place] [address] Pre-visit Intake from Last 3 Months Immunizations Name Administration Dates Next Due HZV (ZOSTAVAX) 06/15/2008 HepA Adult 04/24/2007,04/13/2006 IPV 04/13/2006 Influenza TIV (IM) 02/01/2018 PCV13 05/11/2015 PPSV23 05/29/2017,03/19/2006 SARS-COV-2 (COVID-19) - PFIZ ER (Discontinued)(12 years or older) 12/30/2020 Tdap 03/25/2014 TyVi (inj) 04/27/2010,04/13/2006 Family History Medical History Relation Name Comments Bipolar Brother 1 Dementia Brother 1 Heart disease Brother 1 Bipolar Brother 2 Coronary artery disease Father shaina núñez Heart disease Father shaina núñez Colon cancer Maternal Grandfather gabriela Prostate cancer Maternal Grandfather gabriela Colon cancer Maternal Grandmother fawad Anxiety disorder Mother Old age Mother Relation Name Status Comments Brother 1 Brother 2 Father shaina núñez Maternal Grandfather gabriela Maternal Grandmother fawad Mother Social History Tobacco Use Types Packs/Day Years [...] week 11/04/2019 How often do you attend [facility] or rast[facility] services? 1 to 4 times per year [...] Answer Date Recorded PHQ-2 Score 0 10/01/2018 [facility] [place] of Occupat ional Health - Occupational Stress [...] Master's degree (e.g., MA, MS, Jing, MEd, TECHNICIAN PREVENTATIVE MEDICINE, GIANFRANCO) 01/21/2019 Sex and Gender Information Value Date Recorded Sex Assigned at Male 02/20/2020 4:49 PM CDT Gender Identity Male 03/14/2018 12:28 PM HEAD OF BIOLOGY Sexual Orientation Bisexual 02/20/2020 4: 48 PM [...] 11/13/2023 2:26 PM CDT Plan of Treatment Health Maintenance Due Date Last Done Comments Depression Screening (Annual PHQ-2) 04/30/2023 Fall Risk Screen (Annual) 04/30/2023 COVID-19 Vaccine ( season) 2023 02/09/2023, 01/24/2022, 07/26/2021, Additional history exists Influenza Vaccine (#1) 2024 , 01/11/2022, 02/28/2021, Additional history exists DTaP,Tdap,and Td Vaccines (2 - Td or Tdap) 03/25/2024 03/25/2014 Hepatitis A Vaccines Completed 04/24/2007, 04/13/20 06 Pneumococcal vaccine (65+ years) Completed 05/29/2017, 05/11/2015, 03/19/2006 Zoster Vaccines Completed 08/14/2018, 06/28, 06/04/2018, Additional history exists Colonoscopy Discontinued 06/02/2019, 07/27/2015 RSV vaccine - (32-36 weeks) or 60+ years Completed 02/27/2023 Cologuard Discontinued 09/21/2023 Colorectal Cancer Surveillance Discontinued CT Colonography Discontinued HPV Vaccines Aged Out No longer eligi ble based on patient's age to complete this topic Medical Devices Implanted Type Area Benzene Operator Device Identifier Shelf Expiration Date Model / Serial / Lot Hip Implant Hip Implant Left: Hip Ocular Lens Ocular Lens Eye Description:Both eyes. Shoulder Implant Shoulder Implant Right: Shoulder Care Teams Smoking Pipe Repairer Relationship Specialty Start Date End Date Elsewhere, Pcp PCP - General Internal Medicine 08/29/21
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
--- OUTSIDE RECORDS SUMMARY | 2024-01-22 14:30 | XMS_ITS | Encounter Summary ---
Author Organization [facility] Address [address] [place] [id number] Care Team Providers Care Client Project Coordinator Name Role Phone Elsewhere, Pcp Primary Care Provider Unavailabl e Reason for Visit * Reason Onset Date Comments Pre-visit Intake 10/30/2023 Encounter Details Date Type Department Care Team (Latest Contact Info) Description 10/30/2023 10:45 AM CDT Clinical Communication Virtual Review in [place], [place] [address] [place] [id number] Pre-visit Intake Social History Tobacco Use Types Packs/Day Years [...] often do you attend chur ch or shinto services? 1 to 4 times per year [...] Answer Date Recorded PHQ-2 Score 0 10/01/2018 [facility] [place] [facility] Occupat ional [facility] - Occupational Stress [...] Master's degree (e.g., MA, MS, Jing, MEd, [employer], [employer]) 01/21/2019 Sex and Gender Information Value Date Recorded Sex Assigned at Male 02/20/2020 4:49 PM CDT Gender Identity Male 03/14/2018 12:28 PM [employer] Sexual Orientation Bisexual 02/20/2020 4: 48 PM CDT documented as of this encounter Plan of Treatment Not on file documented as of this encounter Visit Diagnoses Not on filedocumented in this encounter Care Teams Client Project Coordinator Relationship Specialty Start Date End Date Elsewhere, Pcp PCP - General Internal Medicine 08/29/21 documented as of this encounter
--- OUTSIDE RECORDS SUMMARY | 2024-01-22 14:30 | XMS_ITS | Clinical Summary ---
Author Organization [facility] Address [place], [place] [address] Care Team Providers Care Clinical Trial Data Manager Name Role Phone Jaylon Davalos Unavailable Unavaila Bonita Hall NP Unavailable [phone] Estevan CourtneyyD Unavailable [phone] Roberto Raza MD Unavailable [phone] Chico Osorio MD Primary Care Provider [phone] Allergies Active Allergy Reactions Criticality Noted Date Comments Amoxicillin Rash 07/07/2006 Atorvastatin Headache 09/28/2022 Dust Mites Other - Describe In Comment Field 05/19/2014 Runny nose, itchy eyes, etc Penicillin V Rash High 06/02/2020 Unlisted Allergen (Include Detail In Comments) Other - Describe In Comment Field 05/19/2014 Pollens - Runny nose, itchy eyes, etc Medications Medication Sig Dispensed Refills Start Date End Date Status magnesium 250 mg Tab Take 1 tablet by mouth once daily. 0 12/20/2012 Active Cholecalciferol, Vitamin D3, (VITAMIN D-3) 2,000 unit tablet Take 1 tablet by mouth once daily. 0 05/03/2015 Active cyanocobalamin (VITAMIN B-12) 1,[address] under the tongue once daily. 0 11/19/2015 Active ascorbic acid, vitamin C, (VITAMIN C) 1,000 mg tablet Take 1 tablet by mouth once daily. 0 02/19/2018 Active aspirin chewable 81 mg chewable tablet Chew 1 Tablet (81 mg) by mouth once daily with a meal. 0 04/17/2022 Active cephalexin (KEFLEX) 500 mg capsule Take 500 mg by mouth. 4 capsules 1 hour prior to dental appointment 09/28/2022 Active ipratropium (ATROVENT NASAL) 42 mcg (0.06 %) nasal sprayIndications:Vaso motor rhinitis Inhale 2 Sprays into affected nostril(s) three times daily. 15 mL 11 09/27/2023 Active pravastatin (PRAVACHOL) 10 mg tabletIndications:Hyp erlipidemia, unspecified hyperlipidemia type Take 1 Tablet (10 mg) by mouth at bedtime. 90 Tablet 3 11/11/2023 Active traZODone (DESYREL) 50 mg tabletIndications:Ins omnia, idiopathic 0.5-1 oral at bedtime as needed for sleep. 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 Jenkins. He had a Left open inguinal hernia repair with mesh on 12/25/06. He reports left groin pain / inner thigh pain since April 2018. He states the pain gets better during the day and after yoga [facility] Allergic rhinitis, cause unspecified 04/17/2007 Nocturia 04/17/2007 Irritable bowel syndrome 04/17/2007 Resolved Problems Problem Noted Date Diagnosed Date Resolved Date Edema of lower extremity 02/21/202108/2021 Temporomandibular joint disorder 12/25/2018 04/03/2022 Left groin pain 09/11/2018 04/03/2022 Abnormal result of other car diovascular function study 03/26/2018 04/03/2022 Pressure in head 08/19/2015 05/21/2017 Facet arthritis of lumbar region 10/23/2014 04/03/2022 Counseling on health promoti on and disease prevention 06/05/2012 05/21/2017 Major depressive disorder, r ecurrent episode, in full remission 09/28/2008 10/12/2017 Personal history of malignan t neoplasm of prostate 08/27/2008 04/03/2022 ADJUSTMENT D/O W MIXED ANXIETY/DEPRESSED MOOD 01/21/20 08 10/12/2017 Major depressive disorder, r ecurrent episode, in partial or unspecified remission 10/23/200712/30 Adjustment disorder with mix ed anxiety and depressed mood 10/17/2007 01/21/2008 Major depressive disorder, r ecurrent episode, mild 09/12/2007 10/23/2007 Major depressive disorder, r ecurrent episode, moderate 08/13/2007 09/12/2007 Nonallopathic lesion of thor acic region, not elsewhere classified 06/21/2007 05/21/2017 Pain in thoracic spine 06/21/200705/21 ANXIETY DISORDER R/O PTSD, P anic Disorder, NEVAEH 04/17/2007 04/21/2009 EBCT (electron beam computed tomography) abnormal 12/15/2021 Hyperlipidemia 04/06/2016 Encounters Date Type Department Care Team Description 01/22/2024 Nurse Triage [facility] [address] [place] [address] Chico Osorio MD Weak 01/15/2024 Telephone [facility] [address] [place] [address] Chico Osorio MD Refill Request (Trazodone ) 12/28/2023 Telephone [facility] [address] [place] [address] Chico Osorio MD Questions (regarding vaccinations ) 12/06/2023 Telephone [facility] [address] [facility] [place] [address] Brenda Abreu PA Appointment Request (ENT Audio) 12/05/2023 Telephone [facility] [address] [place] [address] Chico Osorio MD Questions (regarding COVID-19 vaccine) 12/03/2023 1:15 PM CDT Ancillary Procedure [facility] [address] [place] [address] 12/03/2023 Telephone [facility] [address] [place] [address] Palak Hwang PA Results 12/03/2023 Travel 11/30/2023 3:30 PM CDT Ancillary Procedure [facility] [address] [place] [address] 11/30/2023 2:50 PM CDT Office Visit [facility] [address] [place] [address] Palak Hwang PA Head Injury (Left sided fell- see triage note- pain comes and goes ); Ear Problem 11/30/2023 Travel 11/30/2023 Nurse Triage [facility] [address] [place] [address] aPlak Hwang PA Appointment; Head Injury 11/29/2023 Nurse Triage [facility] [address] [place] [address] Chico Osorio MD Ear Pain/problem 11/27/2023 3:20 PM CDT Office Visit [facility] [address] [place] [address] Octavia Olvera MD Ear Problem (Left ear pain x 3 days ); Derm Problem (Rash on right lower leg x 3 days ) 11/27/2023 Travel 11/26/2023 Nurse Triage [facility] [address] [place] [address] Chico Osorio MD Ear Pain/problem 11/09/2023 Telephone [facility] [address] [place] [address] Chico Osorio MD Medication Management 11/09/2023 Telephone [facility] [address] [facility] [address] Chico Osorio MD Appointment 11/05/2023 2:30 PM CDT Office Visit [facility] [address] [place] [address] Marleny Padron MD Follow Up (Thrombocytopenia (HC)//) 11/05/2023 Travel 10/31/2023 9:00 AM CDT Office Visit [facility] [address] [facility] [address] Jaylon Dougherty PsyD, Individual Therapy 10/30/2023 4:00 PM CDT Orders Only [facility] [address] [facility] [place] [address] Lab, [facility] 10/30/2023 Travel 10/26/2023 Telephone [facility] [address] [place] [address] Chico Osorio MD Results (WOULD LIKE TO DISCUSS 10/18 LABS) from Last 3 Months Immunizations Name Administration Dates Next Due AMB Influenza, IIV3 (Age >=3 years)(Flu Clinic Only) 02/24/2008 COVID-19 vaccine ([employer] 30mcg/0.3mL) 12YO+ 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 07/26/2021 COVID-19 vaccine ([employer] 30mcg/0.3mL) PFMAIKEL 02/28/2021,06/22/2020,06/01/2020 Hepatitis A (Adult) 04/24/2007,04/13/2006 Inactivated Polio Vaccine 04/13/2006 Influenza A (H1N1), Inactivated 04/21/2009 Influenza A (H1N1), Inactiva isai (Age >=3 Years) 04/21/2009 Influenza Virus, Unspecified 02/28/2021,02/29/20 18 Influenza, High-dose Inactivated 01/19/2017,0904/2015,01/08/2014 Influenza, High-dose Quadriv alent Inactivated 02/19/2023 Influenza, IIV3 (Age 6-35 mos) 01/11/2010 Influenza, IIV3 (Age >=3 years) 01/21/20 13,01/19/2013,01/09/2012,01/25,01/11/2010,02/06/2009,02/24/2008 ,02/19/2007,02/26/2006,03/04/2005,01/28,03/10/2003 Influenza, IIV4 02/28/2018 Influenza, Inactivated AIIV4 (Age 65+ Years) Preserv Free 01/11/2022,01/18/2021,01/19/2020 Influenza, Inactivated IIV3 (Age 65+ Years) Preserv Free 01/07/2019,02/01/2018 Pneumococcal Poly,23-Valent (Pneumovax) 05/29/2017,03/19/2006 Pneumococcal conj 13-Valent (Prevnar 13) 05/11/2015 RSV, Recombinant ADJ Reconst ituted (Arexvy 120MCG/0.5mL) 02/27/2023 Td (Age >=7 Years) 05/16/2002 Td, Preservative Free (age >= 7 Years) 0 Tdap 03/25/2014 Typhoid (injectable) 04/27/2010,04/13/2006 Zoster (Shingrix-RZV, recombinant) 08/14,07/14/2018,06/04/2018,05/22 Zoster (Zostavax-ZVL, live) 06/15/2008 Family History Medical History Relation Name Comments Heart Disease Father CT age 69, Cancer-prostate Maternal Grandfather Cancer-colon Maternal Grandmother Diabetes Mother Hypertension Mother Anesthesia Problem No Family History Relation Name Status Comments Brother 1 Alive Brother 2 Alive Father (Age 69) heart Maternal Grandfather Maternal Grandmother Mother 1994 old a ge Social History Tobacco Use Types Packs/Day Years Used Date Smoking Tobacco: Never Smokeless Tobacco: Never Tobacco Cessation:Counseling Given: Yes Alcohol Use Standard Drinks/Week Comments No 0 (1 standard drink = 0.6 oz pur e alcohol) PHQ-2 Answer Date Recorded PHQ-2 TOTAL SCORE 0 04/05/2023 Social Connections Answer Date Recorded Frequency of Communication with Friends and Fami ly Not on file 12/28/2023 Financial Resource Strain Answer Date R ecorded Difficulty of Paying Living Expenses 3 12/15/2022 Difficulty of Paying Living Expenses Not on file 12/15/2022 Food Insecurity Answer Date Recorded Worried About Running Out of Food in the Last Ye ar 1 12/15/2022 Transportation Needs Answer Date Record ed Lack of Transportation (Medical) 1 12/15/2022 Housing Stability Answer Date Recorded Unable to Pay for Housing in the Last Year 1 12/15/2022 Sex and Gender Information Value Date Recorded Sex Assigned at Not on file Gender Identity Not on file Sexual Orientation Not on file Obstetrics History Last Filed Vital Signs Vital Sign Reading Time Taken Comments Blood Pressure 104/67 11/30/2023 2:47 PM CDT Pulse 64 11/30/2023 2:47 PM CDT Temperature 36.6 ??C (97.9 ??F) 11/05/2023 2:36 PM CD T Respiratory Rate 4 11/05/2023 2:36 PM CDT Oxygen Saturation 97% 11/30/2023 2:47 PM CDT Inhaled Oxygen Concentration - - Weight 72.8 kg (160 lb 6.4 oz) 11/30/2023 2:47 P M CDT Height 174.2 cm (5' 8.58) 05/09/2023 11:[address] Body Mass Index 23.98 05/09/2023 11:35 AM [employer] Plan of Treatment Health Maintenance Due Date Last Done Comments COVID-19 vaccine series ( season) 2023 02/09/2023, 01/24/2022, 07/26/2021, Additional history exists Influenza for age 65+ 12/30/2023 02/19/2023 , 01/11/2022, 02/28/2021, Additional history exists Tetanus booster 03/25/2024 03/25/2014, 11/0 08/2009, 05/16/2002 Depression screening for age 12+ 04/05/2024 04/05/2023, 04/05/2023, 06/22/2022, Additional history exists Medicare Wellness for age 65+ 04/05/2024, 04/03/2022, 03/15/2021, Additional history exists BMI (ht and wt on same day) for age 18+ 05/09/2024 05/09/2023, 04/05/2023, 12/25/2022, Additional history exists Tdap Completed 03/25/2014 Pneumococcal series for age 65+ Completed 05/29/2017, 05/11/2015, 03/19/2006 Zoster (shingles) series for age 50+ Completed 08/14/2018, 07/14/2018, 06/04/2018, Additional history exists RSV vaccine for adults or Completed 02/27/2023 Medical Devices Implanted Type Area Client Delivery Specialist Device Identifier Shelf Expiration Date Model / Serial / Lot Mesh Marlex [id number] - [id number] Implanted:Qty: 1 on 12/25/2006 at [facility] Left: Inguinal DAVOL [id number] / / [id number] Procedures Procedure Name Priority Date/Time Associated Diagnosis Comments MR HEAD BRAIN WWO JEANETH 12/03/2023 1:2 8 PM CDT Acute nonintractable headache, unspecified headache type CT HEAD BRAIN WO STAT 11/30/2023 3:24 PM CDT Head trauma, initial encounter CBC WITH AUTO DIFFERENTIAL Routine 10/30/2023 4:04 PM CDT Inflammatory polyarthropathy (HC) C-REACTIVE PROTEIN Routine 10/30/2023 4: 04 PM CDT Inflammatory polyarthropathy (HC) SEDIMENTATION RATE Routine 10/30/2023 4: 04 PM CDT Inflammatory polyarthropathy (HC) CREATININE Routine 10/30/2023 4:04 PM CDT Inflammatory polyarthropathy (HC) AST (SGOT) Routine 10/30/2023 4:04 PM CDT Inflammatory polyarthropathy (HC) CBC WITH AUTO DIFFERENTIAL Routine 10/30/2023 4:04 PM CDT Inflammatory polyarthropathy (HC) from Last 3 Months Results * MR HEAD BRAIN WWO (12/03/2023 1:28 PM CDT) Anatomical Region Laterality Modality BRAIN, HEAD Magnetic Resonan ce 12/03/2023 2:57 PM CDT Narrative 12/03/2023 2:57 PM CDT For Patients: ??As a result of the Cures Act, medical imaging exams and procedure reports are released immediately into your electronic medical record. ??You may view this report before your referring provider. ??If you have questions, please contact your health care provider. Indication: Acute non intractable headache. Intermittent left-sided headache for 1 week. Head trauma 11/02/2023. Technique: Multiplanar, multisequence MRI of the brain obtained without and with contrast. ??A total of 15 mL of Clariscan IV contrast was administered. Comparison: CT head 11/30/2023. MRI brain 09/15/2021, 10/26/2010 Findings: Diffuse prominence of the ventricles and cortical sulci, compatible with generalized cerebral volume loss. Scattered small foci of FLAIR hyperintensity throughout the supratentorial white matter, typical of chronic microangiopathy. No evidence for recent hemorrhage or infarct. No midline shift or herniation. No pathologic postcontrast enhancement identified given artifact from patient motion. Slightly ectatic and tortuous course of the vertebral and basilar arteries, encroaching upon the left brachium pontis and valentín, without subjacent parenchymal signal abnormality, stable relative to 10/26/2010. Midline structures are otherwise unremarkable. Major expected intracranial flow voids are visualized. Unremarkable bone marrow signal. No evidence of obstructive paranasal sinus disease or mastoid effusion. Bilateral lens implants. Impression: 1. No evidence of acute intracranial abnormality. 2. Mild-moderate generalized cerebral volume loss and mild chronic microangiopathy changes, similar to 09/15/2021. 3. 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 Dictated by Lamar Renteria MD @ 12/03/2023 2:57:31 PM (Electronically Signed) Procedure Note Lamar Renteria, - 12/03/2023 For Patients: As a result of the 21st Century Cures Act, medical imagingexams and procedure reports are released immediately into your electronicmedical record. You may view this report before your referring provider.If you have questions, please contact your health care provider. Indication: Acute non intractable headache. Intermittent left-sided headache for 1week. Head trauma 11/02/2023. Technique: Multiplanar, multisequence MRI of the brain obtained without and withcontrast. A total of 15 mL of Clariscan IV contrast was administered. Comparison: CT head 11/30/2023. MRI brain 09/15/2021, 10/26/2010 Findings: Diffuse prominence of the ventricles and cortical sulci, compatible withgeneralized cerebral volume loss. Scattered small foci of FLAIRhyperintensity throughout the supratentorial white matter, typical ofchronic microangiopathy. No evidence for recent hemorrhage or infarct. Nomidline shift or herniation. No pathologic postcontrast enhancementidentified given artifact from patient motion. Slightly ectatic and tortuous course of the vertebral and basilararteries, encroaching upon the left brachium pontis and valentín, withoutsubjacent parenchymal signal abnormality, stable relative to 10/26/2010.Midline structures are otherwise unremarkable. Major expected intracranialflow voids are visualized. Unremarkable bone marrow signal. No evidence ofobstructive paranasal sinus disease or mastoid effusion. Bilateral lensimplants. Impression: 1. No evidence of acute intracranial abnormality. 2. Mild-moderate generalized cerebral volume loss and mild chronicmicroangiopathy changes, similar to 09/15/2021. 3. Vertebrobasilar dolichoectasia, mildly encroaching upon the leftbrachium pontis/valentín, stable relative to 2010. Dictated by Lamar Renteria MD @ 12/03/2023 2:57:31 PM (Electronically Signed) [facility] * CT HEAD BRAIN WO (11/30/2023 3:24 PM CDT) Anatomical Region Laterality Modality HEAD, BRAIN Computed Tomogra phy 11/30/2023 3:51 PM CDT Impressions 11/30/2023 3:51 PM CDT 1. No calvarial fracture or intracranial bleed. 2. Cerebral atrophy with nonspecific white matter disease, likely microangiopathy. Please note that all CT scans at this facility use dose modulation, iterative reconstruction, and/or weight-based dosing when appropriate to reduce radiation dose to as low as reasonably achievable. Dictated by Malik Rosado MD @ 11/30/2023 3:51:44 PM (Electronically Signed) Narrative 11/30/2023 3:51 PM CDT For Patients: ??As a result of the Cures Act, medical imaging exams and procedure reports are released immediately into your electronic medical record. ??You may view this report before your referring provider. ??If you have questions, please contact your health care provider. INDICATION: Headache after head trauma TECHNIQUE: CT head without contrast. COMPARISON: Brain MRI 09/15/2021 FINDINGS: CSF spaces: Mild dolichoectasia vertebral basilar system. Brain parenchyma: No intracranial bleed or mass effect. Cerebral atrophy with mild low-density in the deep white matter. Murray-white differentiation is distinct. Skull base and calvarium: The visualized paranasal sinuses and mastoid air cells demonstrate no acute or significant findings. ??The visualized orbits are grossly unremarkable. ??No skull fractures. ?? Procedure Note Malik Rosdao MD - 11/30/2023 For Patients: As a result of the Cures Act, medical imagingexams and procedure reports are released immediately into your electronicmedical record. You may view this report before your referring provider.If you have questions, please contact your health care provider. INDICATION: Headache after head trauma TECHNIQUE: CT head without contrast. COMPARISON: Brain MRI 09/15/2021 FINDINGS: CSF spaces: Mild dolichoectasia vertebral basilar system. Brain parenchyma: No intracranial bleed or mass effect. Cerebral atrophywith mild low-density in the deep white matter. Murray-white differentiationis distinct. Skull base and calvarium: The visualized paranasal sinuses and mastoid aircells demonstrate no acute or significant findings. The visualized orbitsare grossly unremarkable. No skull fractures. IMPRESSION: 1. No calvarial fracture or intracranial bleed. 2. Cerebral atrophy with nonspecific white matter disease, likelymicroangiopathy. Please note that all CT scans at this facility use dose modulation,iterative reconstruction, and/or weight-based dosing when appropriate toreduce radiation dose to as low as reasonably achievable. Dictated by Malik Rosado MD @ 11/30/2023 3:51:44 PM (Electronically Signed) [facility] * SEDIMENTATION RATE (10/30/2023 4:04 PM CDT) [facility] SEDIMENTATION RATE 15 <20 mm/hr 2023 4:26 PM CDT [facility] Blood BLOOD SPECIMEN / Unknown Venipuncture / Unknown 10/30/2023 4:04 PM CDT 10/30/2023 4:05 PM CDT Chico Osorio MD HEMATOLOGY Performing Organization Address City/State/[facility] Co de Phone Number [facility] [address] [place] [address] * (ABNORMAL) CBC WITH AUTO DIFFERENTIAL (10/30/2023 4:04 PM CDT) [facility] WHITE BLOOD COUNT 4.6 4.5 - 11.0 thou/cu mm 10/30/2023 4:21 PM T [facility] RED BLOOD COUNT 4.22(L) 4.30 - 5.90 mil/cu mm 10/30/2023 4:[address] [facility] HEMOGLOBIN 13.2(L) 13.5 - 17.5 g/dL 10/30/2023 4:[address] [facility] HEMATOCRIT 41.6 37.0 - 53.0 % 10/30/2023 4:[address] [facility] MCV 99 80 - 100 fL 10/30/2023 4:[address] [facility] MCH 31.3 26.0 - 34.0 pg 10/30/2023 4:[address] [facility] MCHC 31.7(L) 32.0 - 36.0 g/dL 10/30/2023 4:[address] [facility] RDW 14.1 11.5 - 15.5 % 10/30/2023 4:[address] [facility] PLATELET COUNT 123(L) 140 - 440 thou/cu mm 10/30/2023 4:[address] [facility] MPV 11.0 6.5 - 11.0 fL 10/30/2023 4:[address] [facility] % NEUT 69.6 % 10/30/2023 4:[address] [facility] % LYMPH 21.1 % 10/30/2023 4:[address] [facility] % MONO 5.9 % 10/30/2023 4:[address] [facility] % EOS 3.0 % 10/30/2023 4:[address] [facility] % BASO 0.4 % 10/30/2023 4:[address] [facility] ABSOLUTE NEUTROPHILS 3.2 1.7 - 7.0 thou/cu mm 10/30/2023 4:[address] [facility] ABSOLUTE LYMPHOCYTES 1.0 0.9 - 2.9 thou/cu mm 10/30/2023 4:[address] [facility] ABSOLUTE MONOCYTES 0.3 <0.9 thou/cu mm 10/30/2023 4:[address] [facility] ABSOLUTE EOSINOPHILS 0.1 <0.5 thou/cu mm 10/30/2023 4:[address] [facility] ABSOLUTE BASOPHILS 0.0 <0.3 thou/cu mm 10/30/2023 4:[address] [facility] Blood BLOOD SPECIMEN / Unknown Venipuncture / Unknown 10/30/2023 4:04 PM CDT 10/30/2023 4:05 PM [facility] - 10/30/2023 4:21 PM T Notice: This testing was ordered by an outside provider. The provider who placed this order has reviewed and approved it for completion by the lab, but is not involved in this patient's care related to the ordering of this lab. The lab will provide the testing results for CBC and Diff, AST, Creatinine, ESR, and CRP, to the outside provider, ??Ashele Lopez at fax number [phone], for that provider to inform and arrange appropriate follow up with the patient. This procedure was originally ordered at [facility]. Notice: This testing was ordered by an outside provider. The provider who placed this order has reviewed and approved it for completion by the lab, but is not involved in this patient's care related to the ordering of this lab. The lab will provide the testing results for CBC and Diff, AST, Creatinine, ESR, and CRP, to the outside provider, ??Ashlee Lopez at fax number [phone], for that provider to inform and arrange appropriate follow up with the patient. This procedure was originally ordered at [facility]. Chico Osorio MD HEMATOLOGY Performing Organization Address [facility] de Phone Number [facility] [address] [place] [phone] * (ABNORMAL) CREATININE (10/30/2023 4:04 PM CDT) eGFR 87(L) >90 mL/min/1.7 3m2 10/30/2023 4:36 PM CDT [facility] Comment:As of 2021, eG FR is calculated by the CKD-EPI creatinine equation without race adjustment. ??eGFR can be influenced by muscle mass, exercise, and diet. ??The reported eGFR is an estimation only and is only applicable if the renal function is stable. CREATININE 0.83 0.70 - 1.20 mg/dL 10/30/2023 4:36 PM CDT [facility] Blood BLOOD SPECIMEN / Unknown Venipuncture / Unknown 10/30/2023 4:04 PM CDT 10/30/2023 4:05 PM CDT Chico Osorio MD CHEMISTRY Performing Organization Address [facility] Co de Phone Number [facility] [address] [place] [address] * C-REACTIVE PROTEIN (10/30/2023 4:04 PM CDT) C-REACTIVE PROTEIN <0.3 <0.5 mg/dL 10/30/2023 4:38 PM CDT [facility] Blood BLOOD SPECIMEN / Unknown Venipuncture / Unknown 10/30/2023 4:04 PM CDT 10/30/2023 4:05 PM CDT Chico Osorio MD CHEMISTRY [facility] [address] [place] [address] * AST (SGOT) (10/30/2023 4:04 PM CDT) AST (SGOT) 31 10 - 50 IU/L 10/30/2023 4:36 PM CDT [facility] Blood BLOOD SPECIMEN / Unknown Venipuncture / Unknown 10/30/2023 4:04 PM CDT 10/30/2023 4:05 PM CDT Chico Osorio MD CHEMISTRY [facility] [address] [place] [address] from Last 3 Months Advance Directives Documents on File Type Date Recorded Patient Hospital Sales Representative Expl anation Healthcare Directive 09/10/2008 * Full Code (Latest Code Status on File) Date Activated Date Inactivated Comments 05/23/2007 7:13 AM 05/23/2007 2:50 PM Care Teams Clinical Trial Data Manager Relationship Specialty Start Date End Date Chico Osorio MD [address] [place] [address] PCP - General Family Practice 05/30/19 Jaylon Davalos, [facility] Emr Analyst 04/20/16 Bonita Alanis NP [address], [place] [address] Cardiovascular Disease 04/20/16 Estevan Courtney PsyD [address] [place] [address] Pulmonary Medicine 04/21/16 Roberto Raza MD [address] [facility] [address] [place] [address] Rheumatology Rheumatology 06/21/17
--- OUTSIDE RECORDS SUMMARY | 2024-01-22 14:30 | XMS_ITS | Encounter Summary ---
Author Organization [facility] Address [address], [place] [address] Care Team Providers Care Warehouser Name Role Phone Clinician, Not Found MD Primary Care Provider Un available Reason for Visit * Procedure/Equipment (Routine) - Incomplete Specialty Diagnoses / Procedures Referred By Contac t Referred To Contact Diagnoses Pain of left hip Procedures XR Pelvis W Lt Lateral Hip Richard Villeda MD [address] [place] [address] Referral ID Status Reason Start Date Expiration Date V isits Requested Visits Authorized [id number] Incomplete 11/14/2023 02/12/2025 1 1 Encounter Details Date Type Department Care Team (Late st Contact Info) Description 11/14/2023 10:15 AM CDT Ancillary Procedure [facility] [address] Radiology [address] [place] [phone] Richard Villeda MD [address] [place] [address] Pain of left hip Social History Tobacco Use Types Packs/Day Years Used Date Smoking Tobacco: Never Smokeless Tobacco: Never Alcohol Use Standard Drinks/Week Comments No 0 (1 standard drink = 0.6 oz pur e alcohol) Sex and Gender Information Value Date Recorded Sex Assigned at Not on file Gender Identity Not on file Sexual Orientation Not on file documented as of this encounter Plan of Treatment Not on file documented as of this encounter Procedures Procedure Name Priority Date/Time Associated Diagnosis Comments XR PELVIS W LT LATERAL HIP Routine 11/14/2023 10:21 AM CDT Pain of left hip documented in this encounter Results * XR Pelvis W [...] degenerative changes in the sacroiliac joints. Richard TONEY GD documented in this encounter Visit Diagnoses Diagnosis Pain of left hip documented in this encounter Care Teams Warehouser Relationship Specialty Start Date End Date Clinician, Not Found, [place] [address] PCP - General 10/10/13 documented as of this encounter
--- OUTSIDE RECORDS SUMMARY | 2024-01-22 14:30 | XMS_ITS | Clinical Summary ---
Author Organization [facility] Address [address] [facility] [place] [address] Care Team Providers Care Senior Quality Technician Name Role Phone Chico Osorio MD Primary Care Provider [phone] Allergies Active Allergy Reactions Criticality Noted Date Comments Amoxicillin 02/07/2013 Medications Medication Sig Dispensed Refills Start Date End Date Status MAGNESIUM OXIDE PO Active VITAMIN D, CHOLECALCIFEROL, PO Take by mouth daily Active TRAZODONE HCL PO Active ALPRAZolam (XANAX) 0.25 MG tablet Take 1 tablet (0.25 mg) by mouth nightly as needed for anxiety 10 tablet 0 02/07/2013 Active Resolved Problems Problem Noted Date Diagnosed Date Resolved Date Knee pain 11/24/2010 12/13/2010 Bursitis, hip 11/24/2010 12/13/2010 Family History Medical History Relation Comments Colon Cancer Maternal Grandfather Relation Status Comments Maternal Grandfather Social History Tobacco Use Types Packs/Day Years Used Date Smoking Tobacco: Never Alcohol Use Standard Drinks/Week Comments Yes 0 (1 standard drink = 0.6 oz pur e alcohol) 2 week Adolescent Education Answer Date Record ed Getting School Help Needed Not on file 02/03 Sex and Gender Information Value Date Recorded Sex Assigned at Not on file Gender Identity Not on file Sexual Orientation Not on file Last Filed Vital Signs Vital Sign Reading Time Taken Comments Blood Pressure 103/78 07/27/2015 3:58 PM CDT sit ting Pulse - - Temperature 36.8 ??C (98.2 ??F) 02/07/2013 9:13 AM CD T Respiratory Rate 15 07/27/2015 3:58 PM CDT s itting Oxygen Saturation 97% 07/27/2015 3:53 PM CDT Inhaled Oxygen Concentration - - Weight 69.4 kg (153 lb) 07/27/2015 3:15 PM CDT Height 177.8 cm (5' 10) 07/27/2015 3:15 PM CDT Body Mass Index 21.95 07/27/2015 3:15 PM CDT Plan of Treatment Not on file Care Teams Senior Quality Technician Relationship Specialty Start Date End Date Chico Osorio MD [address] [place] [address] PCP - General 07/04/19
--- OUTSIDE RECORDS SUMMARY | 2024-01-22 14:30 | XMS_ITS | Clinical Summary ---
Author Organization [facility] Address [address] [address] Care Team Providers Care Postmaster Name Role Phone Clinician, Not Found MD Primary Care Provider Un available Source Comments You are receiving this document as you are listed as the primary care provider,follow-up provider, or the patient has been referred to you for consultation.This is in compliance with the Medicare and[facility] EHR Incentive Program,which states Providers who transition their patient to another setting of careor provider of care or refers their patient to another provider of care shouldprovide summary care record for each transition of care or referral. [facility] Allergies Active Allergy Reactions Criticality Noted Date Comments Amoxicillin Rash 02/21/2011 Atorvastatin Headache 09/28/2022 Other Other, see comments 05/19/2014 Runny nose, itchy eyes, etc Penicillin V Rash High 06/02/2020 Medications Medication Sig Dispensed Refills Start Date End Date Status Magnesium 30 MG tablet Take 1 Tablet (30 mg) by mouth two times a day. 10/10/2013 Active aspirin EC 81 MG enteric coated tabletIndications:Impi ngement syndrome of right shoulder Take 1 Tablet (81 mg) by mouth daily. 10/10/2013 Active cholecalciferol (D 2000) 2000 UNITS tablet Take 1 Tablet (2,000 Units) by mouth. 05/03/2015 Active Cyanocobalamin (VITAMIN B-12) [address] under tongue. 11/19/2015 Active omega-3 fatty acids (MAXEPA,FISHOIL) 1000 MG capsule Take 2 g by mouth daily. Active Coral Calcium 1000 (390 CA) MG Active methylPREDNISolone (MEDROL) 4 MG tablet Take 4 mg by mouth daily. Active predniSONE (DELTASONE) 5 MG tablet 04/16/2018 Active methotrexate 2.5 MG tablet Take by mouth once every week. Active pravastatin (PRAVACHOL) 10 MG tablet Take 1 Tablet (10 mg) by mouth. 11/11/2023 Active rosuvastatin (CRESTOR) 5 MG tablet Take 1 Tablet (5 mg) by mouth daily at bedtime. 10/20/2023 Active trospium (SANCTURA XR) 60 MG capsule Take 1 Capsule (60 mg) by mouth. 05/22/2023 Active GAVILYTE-G 236 g oral solution Take 4,000 mL by mouth once. 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 Impingement syndrome of right shoulder 4 Encounters Date Type Department Care Team Description 11/14/2023 10:15 AM CDT Ancillary Procedure [facility] [address] Radiology [address] [place] [address] Richard Villeda MD Pain of left hip 11/14/2023 9:40 AM CDT Office Visit [facility] [address] [place] [address] Richard Villeda MD Pain of left hip (Primary Dx) from Last 3 Months Family History Medical History Relation Name Comments Heart Disease Father Relation Name Status Comments Father Social History Tobacco Use Types Packs/Day Years [...] Sign Reading Time Taken Comments Blood Pressure 112/70 04/19/2018 3:42 PM MANAGER BANKING Pulse - - Temperature 36.4 ??C (97.5 ??F) 11/14/2023 10:06 AM C DT Respiratory Rate - - Oxygen Saturation - - Inhaled Oxygen Concentration - - Weight 72.6 kg (160 lb) 11/14/2023 10:06 AM CDT Height 170.2 cm (5' 7) 11/14/2023 10:06 AM CDT Body Mass Index 25.06 11/14/2023 10:06 AM CDT Plan of Treatment Health Maintenance Due Date Last Done Comments Medicare Annual Wellness Visit 1940 RSV (1 - 1-dose 75+ series) 01/05/2016 COVID-19 Vaccine (2023- season) 2023 02/09/2023, 01/24/2022, 07/26/2021, Additional history exists Influenza (#1) 2023 02/19/2023, 12/29, 02/28/2021, Additional history exists DTaP/Tdap/Td (2 - Tdap) 03/25/2024 03/25/20 14, 03/04/2010, 05/16/2002 IPV (Polio) Aged Out 04/13/2006 No longer eligi ble based on patient's age to complete this topic HepA Aged Out 04/24/2007, 04/13/2006 No lo nger eligible based on patient's age to complete this topic Pneumococcal 65+ Yrs Completed 05/29/2017, 05/11/2015, 03/19/2006 Zoster/Shingles Completed 08/14/2018, 06/28, 06/04/2018, Additional history exists HepB Aged Out No longer eligi ble based on patient's age to complete this topic Hib Aged Out No longer eligi ble based on patient's age to complete this topic MCV4 Aged Out No longer eligi ble based on patient's age to complete this topic Procedures Procedure Name Priority Date/Time Associated Diagnosis Comments XR PELVIS W LT LATERAL HIP Routine 11/14/2023 10:21 AM CDT Pain of left hip from Last 3 Months Results * XR Pelvis W Lt Lateral [...] sacroiliac joints. Richard Villeda MD RAD GD from Last 3 Months Care Teams Postmaster Relationship Specialty Start Date End Date Clinician, Not Found, [place] [address] PCP - General 10/10/13
--- OUTSIDE RECORDS SUMMARY | 2024-01-22 14:30 | XMS_ITS | Referral Summary ---
Author Organization [facility] Address [address] [facility] [place] [address] Care Team Providers Care Fuse Maker Name Role Phone Chico Osorio MD Primary Care Provider [phone] Allergies Active Allergy Reactions Criticality Noted Date [...] pain 11/24/2010 12/13/2010 Bursitis, hip 11/24/2010 12/13/2010 Social History Tobacco Use Types Packs/Day Years [...] of Treatment Not on file Care Teams Fuse Maker Relationship Specialty Start Date End Date Chico Osorio MD [address] [place] [address] PCP - General 07/04/19
--- OUTSIDE RECORDS SUMMARY | 2024-01-22 14:30 | XMS_ITS | Encounter Summary ---
Author Organization [facility] Address [address] [place] [address] Care Team Providers Care Tight Barrel Inspector Name Role Phone Elsewhere, Pcp Primary Care Provider Unavailabl e Reason for Visit * Reason Onset Date Comments Lab Monitoring 10/31/2023 10/30/23 Encounter Details Date Type Department Care Team (Latest Contact Info) Description 10/31/2023 Clinical Communication Division of Rheumatology in [place], [place] [address] [place] [address] Ashlee Lopez, ASSISTANT ACCOUNTING MANAGER, C.N.P. [address] [place] [phone] Lab Monitoring (10/30/23) Social History Tobacco Use Types Packs/Day Years [...] often do you attend chur ch or religion services? 1 to 4 times per year [...] Answer Date Recorded PHQ-2 Score 0 10/01/2018 [facility] of Occupat ional Health - Occupational Stress [...] Master's degree (e.g., MA, MS, Jing, MEd, POWERHOUSE ENGINEER, [employer]IANFRAN[employer]) 01/21/2019 Sex and Gender Information Value Date Recorded Sex Assigned at Male 02/20/2020 4:49 PM CDT Gender Identity Male 03/14/2018 12:28 PM TABBER Sexual Orientation Bisexual 02/20/2020 4: 48 PM CDT documented as of this encounter Miscellaneous Notes * Telephone Encounter - Janet Rodarte R.N. - 10/31/2023 10:34 AM CDT Documentation note only, patient not contacted ASSESSMENT Rheumatology monitoring labs completed at an external lab on 10/30/2023 were reviewed per Rheumatology division parameters. Labs reviewed: absolute neutrophil count, AST, creatinine, hemoglobin, leukocytes, platelets, ESR (Sed Rate), CRP (C-Reactive Protein) External labs are viewable in Care Everywhere. Labs Tab of Chart Review PLAN Pre-visit labs for upcoming appointment with patient. . documented in this encounter Plan of Treatment Not on file documented as of this encounter Visit Diagnoses Not on filedocumented in this encounter Care Teams Tight Barrel Inspector Relationship Specialty Start Date End Date Elsewhere, Pcp PCP - General Internal Medicine 08/29/21 documented as of this encounter
--- OUTSIDE RECORDS SUMMARY | 2024-01-22 14:30 | XMS_ITS | Encounter Summary ---
Author Organization [facility] Address [address] [place] [address] Care Team Providers Care Robotics Systems Engineer Name Role Phone Elsewhere, Pcp Primary Care Provider Unavailabl e Reason for Visit * Reason Onset Date Comments Return Visit 11/05/2023 Encounter Details Date Type Department Care Team (Latest Contact Info) Description 11/05/2023 Clinical Communication Division of Rheumatology in [place], [place] [address] [place] [phone] Ashlee Lopez, DIESEL ENGINE ERECTOR, C.N.P. [address] [place] [phone] Return Visit Social History Tobacco Use Types Packs/Day Years [...] often do you attend chur ch or hinduism services? 1 to 4 times per year [...] Answer Date Recorded PHQ-2 Score 0 10/01/2018 [facility] [place] of Occupat ional Health - Occupational Stress [...] Master's degree (e.g., MA, MS, Jing, MEd, RESTAURANT HOSTESS, GIANFRANCO) 01/21/2019 Sex and Gender Information Value Date Recorded Sex Assigned at Male 02/20/2020 4:49 PM CDT Gender Identity Male 03/14/2018 12:28 PM SWITCHER Sexual Orientation Bisexual 02/20/2020 4: 48 PM CDT documented as of this encounter Plan of Treatment Not on file documented as of this encounter Visit Diagnoses Not on filedocumented in this encounter Care Teams Robotics Systems Engineer Relationship Specialty Start Date End Date Elsewhere, Pcp PCP - General Internal Medicine 08/29/21 documented as of this encounter
[2024-01-22] MEDS: CIPROFLOXACIN 400 MG/200 ML PIGGYBACK 200 MG IVPB (14:45)
[2024-01-22] MEDS: 0.9 % SODIUM CHLORIDE 500 ML 500 ML IV (15:00)
--- NOTE | 2024-01-22 15:35 | CRLHL7_ITS ---
For Patients: As a result of the 21st Century Cures Act, medical imaging exams and procedure reports are released immediately into your electronic medical record. You may view this report before your referring provider. If you have questions, please contact your health care provider. INDICATION: Left lower rib and abdominal pain. TECHNIQUE: Multiplanar CT examination of the chest, abdomen and pelvis was performed after the administration 79 mL of Isovue 370 intravenous contrast. COMPARISON: None. FINDINGS: CHEST: Lower neck: Visualized thyroid appears unremarkable. Cardiovascular: Normal heart size. No significant atherosclerotic calcifications of the thoracic aorta. Normal caliber of the thoracic aorta and pulmonary artery. Dense coronary arterial calcifications. No large central pulmonary embolus. Mediastinum and lymph nodes: No pathologic lymphadenopathy by size criteria. Airways: The trachea remains patent and midline. Mild diffuse peribronchial wall thickening. Lungs: No focal consolidation. Linear bandlike opacification of the lung bases bilaterally, likely due to subsegmental atelectasis and/or scarring. Scattered tree-in-bud nodularity in the peripheral right upper lobe inferiorly. Pleura: No pleural effusions or pneumothorax. Chest wall: No axillary lymphadenopathy. Unremarkable. Bones: No acute osseous abnormalities. No acute displaced rib fractures. Multilevel degenerative changes of the thoracic spine. ABDOMEN AND PELVIS: Liver: Unremarkable. Gallbladder: Unremarkable. Biliary: No biliary ductal dilatation. Pancreas: Within normal limits. Spleen: Moderate splenomegaly. Adrenals: Unremarkable. Kidneys/ureters/bladder: Kidneys are normal in size. No obstructive urinary calculus or hydronephrosis. No obstructive uropathy. Limited evaluation of the bladder due to the extensive streak artifact from the hip arthroplasties. Otherwise, the bladder appears within normal limits. There are scattered nonobstructive calculi within the collecting system of both kidneys. No suspicious renal masses. Gastrointestinal: Small hiatal hernia. No bowel wall thickening or bowel obstruction. Normal appendix. Colonic diverticulosis without pericolonic fat stranding to suggest acute diverticulitis. Mild colonic stool burden. Pelvic structures: Limited evaluation of the pelvic organs due to the extensive streak artifacts. No large pelvic masses identified. Vascular: Mild atherosclerotic calcifications of the abdominal aorta. No aneurysm. The portal vein remains patent. Peritoneum: No free fluid or pneumoperitoneum. No drainable fluid collections. Lymph nodes: No pathologic lymphadenopathy by size criteria. Abdominal wall/soft tissues: Unremarkable. Bones: No acute osseous abnormalities. Multilevel degenerative changes of the lumbar spine. Status post bilateral total hip arthroplasties. IMPRESSION: 1. No acute displaced rib fractures, pleural effusions or pneumothorax. 2. Scattered tree-in-bud nodularity of the right upper lobe inferiorly, suggestive of a nonspecific infectious versus inflammatory bronchiolitis. 3. Moderate splenomegaly. Correlate with physical examination. 4. Otherwise, no acute abdominopelvic pathology. 5. Small hiatal hernia. 6. Colonic diverticulosis without CT evidence of acute diverticulitis. Please note that all CT scans at this facility use dose modulation, iterative reconstruction, and/or weight-based dosing when appropriate to reduce radiation dose to as low as reasonably achievable. Dictated by Saúl Orantes MD @ 01/22/2024 6:06:43 PM (Electronically Signed)
[2024-01-22 15:47] LABS: Troponin, Point-of-Care* 0.02 ng/ml (0.01-0.04)
[2024-01-22 16:05] LABS: Troponin, Point-of-Care* 0.02 ng/ml (0.01-0.04)
--- NOTE | 2024-01-22 18:42 | ED.NURSE ---
Pt report given to Liana ARREOLA, [place]. Pt to [id number].
--- NOTE | 2024-01-22 19:01 | PM.IMHP1 ---
Hospitalist- H&P: HPI History of Present Illness Date Seen: 01/22/24 Chief complaint: doesnt feel right, sweating Narrative: Pranay Núñez is a 84 year old male past medical history significant for ASHD, hypercholesterolemia, PMR, hypotension and bradycardia is admitted to the medical floor from the ED for further management left lower extremity cellulitis with acute hypotension and bradycardia. Patient reports feeling well, his usual self, until last evening when he just was not feeling right. Reported some lightheadedness. Chills. Was feeling thirsty which isn't normal for him. Awoke this morning with erythema over the left foot which has since spread just below the left knee. He reports having a pedicure or Sunday of last week at which time they did ivan the skin while trimming his toenails, causing a small amount of bleeding. He has since soaked it and has been swimming in the community pool. This morning is the 1st time he has had redness as well as tenderness to the foot. Denies headaches. Lightheadedness from last night has resolved. No further chills. Denies chest pain, cough, shortness of breath or difficulty breathing. Denies recent nausea, vomiting, diarrhea. No change in stools. While in the ED, developed left upper quadrant pain followed by pelvic pain following IV antibiotic infusions. ED provider uncertain if this was an infusion reaction. Completed both doses of antibiotics. CT of chest abdomen pelvis findings as below. Active daily, exercising, swimming, yoga. Nonsmoker. Primary care provider is Chico Kwon. Specialty care at [facility]. CT shows scattered tree-in-bud nodularity the right upper lobe inferiorly, suggestive of a nonspecific infectious versus inflammatory bronchiolitis. Patient denies recent cough or chest congestion. CT shows moderate splenomegaly, not significantly palpated, nontender on exam CT shows colonic diverticulosis without CT evidence of acute diverticulitis. No recent changes in bowel, no abdominal pain PFSH PFS Medical History Hypotension ?I95.9 - Hypotension, unspecified (ICD-10) Insomnia ?G47.00 - Insomnia, unspecified (ICD-10) Spondylosis ?M47.9 - Spondylosis, unspecified (ICD-10) Thrombocytopenia ?D69.6 - Thrombocytopenia, unspecified (ICD-10) Hypercholesterolemia ?E78.00 - Pure hypercholesterolemia, unspecified (ICD-10) ASHD (arteriosclerotic heart disease) ?I25.10 - Atherosclerotic heart disease of [place] coronary artery without angina pectoris (ICD-10) Polymyalgia rheumatica ?M35.3 - Polymyalgia rheumatica (ICD-10) Squamous carcinoma Rheumatoid arthritis ?M06.9 - Rheumatoid arthritis, unspecified (ICD-10) Surgical History History of arthroscopy of right knee (01/16/06) ?Z98.890 - Other specified postprocedural states (ICD-10) 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) ?Z96.641 - Presence of right artificial hip joint (ICD-10) 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/19) ?Z96.642 - Presence of left artificial hip joint (ICD-10) H/O prostatectomy ?Z90.79 - Acquired absence of other genital organ(s) (ICD-10) H/O inguinal hernia repair (~2007) ?Z98.890 - Other specified postprocedural states (ICD-10) ?Z87.19 - Personal history of other diseases of the digestive system (ICD-10) 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) ?Z98.890 - Other specified postprocedural states (ICD-10) 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) ?Z96.651 - Presence of right artificial knee joint (ICD-10) Social History Smoking Status: Never smoker Do you use any of these nicotine containing products: None Second hand tobacco smoke exposure: No How often do you have a drink containing alcohol: never How often do you have six or more drinks on one occasion: Never AUDIT-C Alcohol total score: 0 Non-prescribed substance use: denies use Meds Home Medications and Allergies Home Medications ?Medication ?Instructions ?Recorded ?Confirmed ?Type aspirin 81 mg tablet,delayed 81 mg PO DAILY 05/03/22 01/22/24 History release ascorbic acid (vitamin C) 1,000 mg 1 g PO DAILY 01/22/24 01/22/24 History tablet cephalexin 500 mg capsule 2,000 mg PO ONCE PRN 01/22/24 01/22/24 History cholecalciferol (vitamin D3) 50 50 mcg PO DAILY 01/22/24 01/22/24 History mcg (2,000 unit) capsule cyanocobalamin (vitamin B-12) 1,000 mcg sublingual DAILY 01/22/24 01/22/24 History 1,000 mcg sublingual lozenge ipratropium bromide 42 mcg (0.06 2 spray intranasal HS PRN 01/22/24 01/22/24 History %) nasal spray magnesium 250 mg tablet 250 mg PO DAILY 01/22/24 01/22/24 History pravastatin 10 mg tablet 10 mg PO HS 01/22/24 01/22/24 History trazodone 50 mg tablet 25 - 50 mg PO HS PRN insomnia 01/22/24 01/22/24 History Allergies Allergy/AdvReac Type Severity Reaction Status Date / Time amoxicillin Allergy Rash Verified 01/22/24 16:06 penicillin V Allergy Rash Verified 01/22/24 16:06 Exam Narrative: Exam Narrative: PHYSICAL EXAM General: Pleasant, conversant, NAD HEENT: Normocephalic, atraumatic, sclera white, EOMI, oral mucosa moist Cardiovascular: RRR, S1S2. No pitting edema Pulmonary: CTA bilaterally without rhonchi, rales, expiratory wheezes. No dyspnea Abdominal: Soft, nondistended, spleen not significantly palpable, NTTP Neurological: Alert, answering questions appropriately, cranial nerves intact, no focal findings Extremities: LLE bright erythema over dorsal aspect of foot, spreading just below knee, minimal swelling, mildly tender with palpation. No calf tenderness, negative Homans. AROMI. Neurovascularly intact Skin: Warm, dry. Const: Vital Signs, click to edit/add: Vital Signs - 24 hr 01/22/24 12:08 01/22/24 12:24 01/22/24 12:30 Temperature 97.3 F L Pulse Rate 57 L 61 Pulse Rate [Right Pulse Oximeter] 69 Respiratory Rate 18 Blood Pressure 85/49 L Blood Pressure [Ri ght Upper Arm] 79/44 L Pulse Oximetry 95 96 97 Oxygen Delivery Me thod Room Air 01/22/24 12:31 01/22/24 12:32 01/22/24 12:35 Temperature Pulse Rate 56 L 57 L Pulse Rate [Right Pulse Oximeter] Respiratory Rate Blood Pressure 79/46 L 81/49 L Blood Pressure [Ri ght Upper Arm] Pulse Oximetry 95 97 Oxygen Delivery Me thod 01/22/24 12:42 01/22/24 12:45 01/22/24 12:51 Temperature Pulse Rate 59 L 59 L 56 L Pulse Rate [Right Pulse Oximeter] Respiratory Rate Blood Pressure 82/48 L 78/47 L Blood Pressure [Ri ght Upper Arm] Pulse Oximetry 96 96 96 Oxygen Delivery Me thod 01/22/24 13:00 01/22/24 13:02 01/22/24 13:11 Temperature Pulse Rate 56 L 51 L 55 L Pulse Rate [Right Pulse Oximeter] Respiratory Rate Blood Pressure 79/47 L 79/47 L Blood Pressure [Ri ght Upper Arm] Pulse Oximetry 96 97 97 Oxygen Delivery Me thod 01/22/24 13:15 01/22/24 13:22 01/22/24 13:23 Temperature Pulse Rate 55 L 57 L 53 L Pulse Rate [Right Pulse Oximeter] Respiratory Rate Blood Pressure 83/49 L Blood Pressure [Ri ght Upper Arm] Pulse Oximetry 97 97 97 Oxygen Delivery Me thod 01/22/24 13:31 01/22/24 13:32 01/22/24 13:42 Temperature Pulse Rate 56 L 59 L 56 L Pulse Rate [Right Pulse Oximeter] Respiratory Rate Blood Pressure 82/46 L 87/44 L Blood Pressure [Ri ght Upper Arm] Pulse Oximetry 96 98 96 Oxygen Delivery Me thod 01/22/24 13:45 01/22/24 13:52 01/22/24 13:58 Temperature Pulse Rate 55 L 55 L 43 L Pulse Rate [Right Pulse Oximeter] Respiratory Rate Blood Pressure 80/48 L 83/46 L Blood Pressure [Ri ght Upper Arm] Pulse Oximetry 98 98 99 Oxygen Delivery Me thod 01/22/24 14:00 01/22/24 14:04 01/22/24 14:07 Temperature Pulse Rate 44 L 48 L 47 L Pulse Rate [Right Pulse Oximeter] Respiratory Rate Blood Pressure 120/62 116/66 Blood Pressure [Ri ght Upper Arm] Pulse Oximetry 97 100 94 Oxygen Delivery Me thod 01/22/24 14:12 01/22/24 14:15 01/22/24 14:17 Temperature Pulse Rate 61 45 L 54 L Pulse Rate [Right Pulse Oximeter] Respiratory Rate Blood Pressure 102/48 L 113/57 L Blood Pressure [Ri ght Upper Arm] Pulse Oximetry 95 96 96 Oxygen Delivery Me thod 01/22/24 14:22 01/22/24 14:27 01/22/24 14:30 Temperature Pulse Rate 64 61 52 L Pulse Rate [Right Pulse Oximeter] Respiratory Rate Blood Pressure 129/59 L 125/56 L Blood Pressure [Ri ght Upper Arm] Pulse Oximetry 97 92 97 Oxygen Delivery Me thod 01/22/24 14:32 01/22/24 14:33 01/22/24 14:37 Temperature Pulse Rate 46 L 53 L 49 L Pulse Rate [Right Pulse Oximeter] Respiratory Rate Blood Pressure 127/63 120/58 L Blood Pressure [Ri ght Upper Arm] Pulse Oximetry 97 96 98 Oxygen Delivery Me thod 01/22/24 14:41 01/22/24 14:45 01/22/24 14:46 Temperature Pulse Rate 52 L 49 L 58 L Pulse Rate [Right Pulse Oximeter] Respiratory Rate Blood Pressure 127/61 125/64 Blood Pressure [Ri ght Upper Arm] Pulse Oximetry 96 96 91 Oxygen Delivery Me thod 01/22/24 14:51 01/22/24 14:57 01/22/24 15:02 Temperature Pulse Rate 55 L 61 73 Pulse Rate [Right Pulse Oximeter] Respiratory Rate Blood Pressure 122/60 122/58 L Blood Pressure [Ri ght Upper Arm] Pulse Oximetry 98 82 L 97 Oxygen Delivery Me thod 01/22/24 15:12 01/22/24 15:15 01/22/24 15:22 Temperature Pulse Rate 67 63 72 Pulse Rate [Right Pulse Oximeter] Respiratory Rate Blood Pressure 130/50 L 98/51 L Blood Pressure [Ri ght Upper Arm] Pulse Oximetry 96 96 90 Oxygen Delivery Me thod 01/22/24 15:30 01/22/24 15:32 01/22/24 15:42 Temperature Pulse Rate 86 87 77 Pulse Rate [Right Pulse Oximeter] Respiratory Rate Blood Pressure 95/67 105/76 Blood Pressure [Ri ght Upper Arm] Pulse Oximetry 95 95 96 Oxygen Delivery Me thod 01/22/24 15:45 01/22/24 15:52 01/22/24 16:17 Temperature Pulse Rate 83 100 Pulse Rate [Right Pulse Oximeter] Respiratory Rate Blood Pressure 111/63 Blood Pressure [Ri ght Upper Arm] Pulse Oximetry 96 95 Oxygen Delivery Me thod 01/22/24 16:19 01/22/24 16:21 01/22/24 16:32 Temperature Pulse Rate 96 96 Pulse Rate [Right Pulse Oximeter] Respiratory Rate Blood Pressure 120/73 104/52 L Blood Pressure [Ri ght Upper Arm] Pulse Oximetry 92 94 Oxygen Delivery Vt thod 01/22/24 16:41 01/22/24 16:45 01/22/24 16:45 Temperature 98.0 F Pulse Rate 67 75 Pulse Rate [Right Pulse Oximeter] Respiratory Rate 20 Blood Pressure Blood Pressure [Ri ght Upper Arm] Pulse Oximetry 92 90 Oxygen Delivery Me thod 01/22/24 16:47 01/22/24 16:48 01/22/24 17:00 Temperature Pulse Rate 69 68 67 Pulse Rate [Right Pulse Oximeter] Respiratory Rate Blood Pressure 101/53 L Blood Pressure [Ri ght Upper Arm] Pulse Oximetry 91 95 95 Oxygen Delivery Vt thod 01/22/24 17:01 01/22/24 17:15 01/22/24 17:16 Temperature Pulse Rate 66 62 63 Pulse Rate [Right Pulse Oximeter] Respiratory Rate Blood Pressure 95/50 L 90/49 L Blood Pressure [Ri ght Upper Arm] Pulse Oximetry 95 94 96 Oxygen Delivery Vt thod 01/22/24 17:17 01/22/24 17:30 01/22/24 17:31 Temperature Pulse Rate 67 68 67 Pulse Rate [Right Pulse Oximeter] Respiratory Rate Blood Pressure 91/57 L Blood Pressure [Ri ght Upper Arm] Pulse Oximetry 96 94 94 Oxygen Delivery Vt thod 01/22/24 17:45 01/22/24 17:47 01/22/24 17:48 Temperature Pulse Rate 80 71 66 Pulse Rate [Right Pulse Oximeter] Respiratory Rate Blood Pressure 98/71 Blood Pressure [Ri ght Upper Arm] Pulse Oximetry 94 95 94 Oxygen Delivery Vt thod 01/22/24 18:08 01/22/24 18:15 01/22/24 18:17 Temperature Pulse Rate 63 63 71 Pulse Rate [Right Pulse Oximeter] Respiratory Rate Blood Pressure 95/50 L Blood Pressure [Ri ght Upper Arm] Pulse Oximetry 96 96 95 Oxygen Delivery Me thod 01/22/24 18:35 Temperature Pulse Rate Pulse Rate [Right Pulse Oximeter] Respiratory Rate Blood Pressure 91/52 L Blood Pressure [Ri ght Upper Arm] Pulse Oximetry Oxygen Delivery [facility] Hospitalist - H&P: Result Labs Labs: Short CBC 01/22/24 Range/Units 12:40 WBC 6.85 (4.50-11.00) K/uL Hgb 11.5 L (13.5-17.5) gm/dL Hct 35.9 L (37.0-53.0) % Plt Count 80 L (140-440) K/uL BMP 01/22/24 12:40 Sodium 132 L Potassium 3.6 Chloride 103 Carbon Dioxide 22 BUN 23 Creatinine 0.9 Glucose 107 Calcium 8.6 Liver Function 01/22/24 Range/Units 12:40 Total Bilirubin 1.3 (0.1-1.5) mg/dL AST 25 (12-35) U/L ALT 13 (4-50) U/L Alkaline Phosphatase 58 (40-150) U/L Albumin 4.0 (3.3-5.0) g/dL ECG Attestation: I personally reviewed and interpreted this ECG as follows: Interpretation: EKG shows sinus bradycardia with PACs, ventricular rate 57, QTC [address] Chest/Ab/Pelvis: Attestation: I have reviewed the pertinent imaging results. Radiologist's impression: FINDINGS: CHEST: Lower neck: Visualized thyroid appears unremarkable. Cardiovascular: Normal heart size. No significant atherosclerotic calcifications of the thoracic aorta. Normal caliber of the thoracic aorta and pulmonary artery. Dense coronary arterial calcifications. No large central pulmonary embolus. Mediastinum and lymph nodes: No pathologic lymphadenopathy by size criteria. Airways: The trachea remains patent and midline. Mild diffuse peribronchial wall thickening. Lungs: No focal consolidation. Linear bandlike opacification of the lung bases bilaterally, likely due to subsegmental atelectasis and/or scarring. Scattered tree-in-bud nodularity in the peripheral right upper lobe inferiorly. Pleura: No pleural effusions or pneumothorax. Chest wall: No axillary lymphadenopathy. Unremarkable. Bones: No acute osseous abnormalities. No acute displaced rib fractures. Multilevel degenerative changes of the thoracic spine. ABDOMEN AND PELVIS: Liver: Unremarkable. Gallbladder: Unremarkable. Biliary: No biliary ductal dilatation. Pancreas: Within normal limits. Spleen: Moderate splenomegaly. Adrenals: Unremarkable. Kidneys/ureters/bladder: Kidneys are normal in size. No obstructive urinary calculus or hydronephrosis. No obstructive uropathy. Limited evaluation of the bladder due to the extensive streak artifact from the hip arthroplasties. Otherwise, the bladder appears within normal limits. There are scattered nonobstructive calculi within the collecting system of both kidneys. No suspicious renal masses. Gastrointestinal: Small hiatal hernia. No bowel wall thickening or bowel obstruction. Normal appendix. Colonic diverticulosis without pericolonic fat stranding to suggest acute diverticulitis. Mild colonic stool burden. Pelvic structures: Limited evaluation of the pelvic organs due to the extensive streak artifacts. No large pelvic masses identified. Vascular: Mild atherosclerotic calcifications of the abdominal aorta. No aneurysm. The portal vein remains patent. Peritoneum: No free fluid or pneumoperitoneum. No drainable fluid collections. Lymph nodes: No pathologic lymphadenopathy by size criteria. Abdominal wall/soft tissues: Unremarkable. Bones: No acute osseous abnormalities. Multilevel degenerative changes of the lumbar spine. Status post bilateral total hip arthroplasties. IMPRESSION: 1. No acute displaced rib fractures, pleural effusions or pneumothorax. 2. Scattered tree-in-bud nodularity of the right upper lobe inferiorly, suggestive of a nonspecific infectious versus inflammatory bronchiolitis. 3. Moderate splenomegaly. Correlate with physical examination. 4. Otherwise, no acute abdominopelvic pathology. 5. Small hiatal hernia. 6. Colonic diverticulosis without CT evidence of acute diverticulitis. Assessment and Plan Assessment and plan (1) Cellulitis: Problem comment: LLE. Suspected following pedicure with open wound. Water (pool, soaking) exposure Afebrile, no leukocytosis, lactate 1.0, CRP 8.6, procalcitonin 0.49 Received Cipro and Vanco in ED - shortly thereafter had LUQ pain, pelvis pain (now resolved) - unknown if adverse reaction to infusion Start Cefepime and Clindamycin - defer conversation to day team and pharmacist if want to trial Vanco again, monitoring Status: Acute (2) Hypotension: Problem comment: Normal SBP around 104 In ED, SBP 80-90s. Received 2L IVF bolus and started on Levophed - turned off when systolics >120 Afebrile, no tachypnea, no tachycardia, no leukocytosis, lactate 1.0, CRP 8.6. Otherwise in setting of cellulitis LLE EKG shows sinus bradycardia with PACs (known history of) Telemetry Continue to monitor, current systolic 95-99, may need to restart pressor Status: Acute (3) History of polymyalgia rheumatica: Problem comment: Previously on methotrexate (last dose probably around August 2023 when reviewing EMR). No recent steroid therapy Followed by [facility], last visit 11/13/2023, plan to remain off of immunosuppression Status: Acute (4) Thrombocytopenia: Problem comment: Chronic, baseline 118-139 Followed by [facility] does not believe this is related to previous methotrexate as he has been off of it for some time CT shows moderate splenomegaly May need to hold enoxaparin if continues to down trend Status: Acute (5) Splenomegaly: Problem comment: CT notes moderate splenomegaly EBV ordered CT August 2020 shows mild splenomegaly Status: Acute (6) Hyponatremia: Problem comment: Mild, sodium 132, baseline 139-143. Monitor Status: Acute (7) ASHD (arteriosclerotic heart disease): Problem comment: Followed by [facility], last visit 07/25/2023, Known presumed nonobstructive coronary artery disease based on coronary atherosclerosis/calcification identified on CT (and status post reassuring stress echoes in the past). He is asymptomatic with no ischemic complaints and no functional limitations. Hyperlipidemia is well addressed with statins. Occasional ectopy, PACs Continue aspirin 81 mg daily Cardiology recommending echo/Holter monitor in the future, postponing approximately 2 years as he has been asymptomatic (previous echo 2012 and 2014) Status: Acute (8) Hypercholesterolemia: Problem comment: continue statin Status: Acute Plan Continue IV antibiotics, addressing with day team and pharmacy most appropriate choices, given questionable adverse reaction to infusion in ED. Total Time Spent Total Time Spent: Total time spent caring for the patient today was 75 minutes. This includes time spent for the visit reviewing the chart, time spent during the visit, time spent after the visit and documentation and planning in coordination of care.
[2024-01-22] MEDS: 0.9 % SODIUM CHLORIDE 1000 ml 1,000 ML 125 ML IV (19:50)
[2024-01-22 19:59] LABS: Mono Screen* Negative (Negative)
[2024-01-22 20:22] LABS: Procalcitonin* 0.49 ng/mL (<0.50)
[2024-01-22 20:56] LABS: Appearance Urine Clear (Clear); Bilirubin Urine Negative (Negative); Blood Urine Negative (Negative); Color Urine Amber (Yellow); Glucose Urine Negative (Negative); Ketones Urine Negative (Negative); Leukocyte Esterase Urine Negative (Negative); Nitrite Urine Negative (Negative); Protein Urine Trace (Negative)
[2024-01-22 21:03] LABS: RBC Urine 0-2 (0-2); WBC Urine 0-2 (0-5)
[2024-01-22] MEDS: CEFEPIME HCL 2 GM in 0.9 % SODIUM CHLORIDE Mini-bag 100 ML IVPB (21:04)
[2024-01-22] MEDS: CLINDAMYCIN 600 MG/50 ML-D5W 600 MG/50 ML PIGGYBACK 100 MG IVPB (21:54)
[2024-01-23] VITALS (56 sets, daily range): BP systolic 80–126; BP diastolic 39–95; PULSE 38–72; RESP 16–20; TEMP 36.1–37.4; O2SAT 94–98
--- NOTE | 2024-01-23 00:31 | PC.NURSE ---
End of Shift: Patient admitted to CCU3. Pleasant and cooperative. Denies pain. Up with SBA. Left lower extremity red and warm, area outlined and elevated on pillows. Patient had several SBPs below 95, updated MD and Norepinephrine drip started at 2227. SBP increased to 140s and patient complained of tightness across chest, updated MD and drip titrated down.
[2024-01-23] MEDS: ACETAMINOPHEN 325 MG TABLET 650 MG PO (00:38)
[2024-01-23] MEDS: 0.9 % SODIUM CHLORIDE 1000 ml 1,000 ML 125 ML IV ×3 (04:46→20:19)
[2024-01-23] MEDS: CEFEPIME HCL 2 GM in 0.9 % SODIUM CHLORIDE Mini-bag 100 ML IVPB ×3 (05:04→20:20)
[2024-01-23] MEDS: CLINDAMYCIN 600 MG/50 ML-D5W 600 MG/50 ML PIGGYBACK 100 MG IVPB (05:35)
[2024-01-23 06:44] LABS: Hematocrit 37.1 % (37.0-53.0); Hemoglobin* 11.8 gm/dL (13.5-17.5); Mean Corpuscular HGB Conc 32 gm/dL (32-36); Mean Corpuscular Hemoglobin 30 pg (26-34); Mean Corpuscular Volume 95 fL (80-100); Platelet Count* 87 K/uL (140-440); Red Blood Count 3.89 m/uL (4.30-5.90); White Blood Count* 6.15 K/uL (4.50-11.00)
[2024-01-23 06:47] LABS: Slide Review Reflex No
--- NOTE | 2024-01-23 06:47 | PC.NURSE ---
END OF SHIFT NOTE: PT A&O. PT REPORTS CHEST TIGHTNESS THAT HAS NOT CHANGED SINCE REPORTING TO PREVIOUS SHIFT. MD WAS UPDATED AT THAT TIME WITH NO NEW ORDERS. PT DENIES SOB, N/V. AMBULATES WITH SBA. VS HYPOTENSIVE AND BRADYCARDIC ON RA; TMAX 99.4 ORALLY. BRADYCARDIA IS ASYMPTOMATIC.?LLE WARM, TENDER, WITH ERYTHEMA. REDNESS REMAINED WITHIN OUTLINED BOARDERS. EXTREMITY IS ELEVATED ON PILLOWS. DR. MILIAN UPDATED OVERNIGHT OF PT?S BRADYCARDIA (BPM 37-49) PT GOWN CHANGED?x2 OVERNIGHT D/T PERSPIRATION. BED ALARM ON AND CALL LIGHT WITHIN PT?S REACH.
[2024-01-23 07:10] LABS: Chloride* 111 mmol/L (96-114); Potassium* 3.6 mmol/L (3.6-5.1); Sodium* 139 mmol/L (135-149)
[2024-01-23 07:13] LABS: Creatinine* 0.9 mg/dL (0.5-1.5); Est. Creatinine Clearance* 54.15; Estimated Glomerular Filt Rate 85 ml/min
[2024-01-23 07:14] LABS: Anion Gap 7 mEq/L (7-15); Blood Urea Nitrogen* 18 mg/dL (7-30); Calcium* 8.3 mg/dL (8.4-10.6); Carbon Dioxide* 21 mmol/L (20-32); Glucose* 108 mg/dL (60-115)
[2024-01-23 07:31] LABS: C Reactive Protein* 19.1 mg/dL (0.5-1.0)
[2024-01-23] MEDS: HYDROCORTISONE SOD SUCCINATE 50 MG/ML inj 100 MG IVP ×2 (07:44→16:56)
[2024-01-23] MEDS: SODIUM CHLORIDE 0.9 % (FLUSH) 10 ML SYRINGE 5 ML IVF ×2 (07:48→20:20)
[2024-01-23 08:03] LABS: Magnesium* 2.3 mg/dL (1.5-2.6)
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
--- NOTE | 2024-01-23 10:25 | PM.IMPN1 ---
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 [Ri ght Upper Arm] Blood Pressure [or thostatic lying Le ft Arm] Blood Pressure [or thostatic sitting Left Arm] Blood Pressure [or thostatic standing Left Arm] Pulse Oximetry Oxygen Delivery Ut thod 01/22/24 22:00 01/22/24 22:25 01/22/24 22:30 Temperature Pulse Rate Pulse Rate [Left P ulse Oximeter] 53 L 61 53 L Pulse Rate [Right Pulse Oximeter] Pulse Rate [Right Radial] Pulse Rate [orthos tatic lying Right Pulse Oximeter] Pulse Rate [orthos tatic sitting Righ t Pulse Oximeter] Pulse Rate [orthos tatic standing Rig ht Pulse Oximeter] Respiratory Rate Blood Pressure Blood Pressure [Le ft Arm] 89/47 L 92/51 L 114/60 Blood Pressure [Ri ght Upper Arm] Blood Pressure [or thostatic lying Le ft Arm] Blood Pressure [or thostatic sitting Left Arm] Blood Pressure [or thostatic standing Left Arm] Pulse Oximetry Oxygen Delivery Ut thod 01/22/24 22:35 01/22/24 22:40 01/22/24 22:45 Temperature Pulse Rate Pulse Rate [Left P ulse Oximeter] 49 L 53 L 57 L Pulse Rate [Right Pulse Oximeter] Pulse Rate [Right Radial] Pulse Rate [orthos tatic lying Right Pulse Oximeter] Pulse Rate [orthos tatic sitting Righ t Pulse Oximeter] Pulse Rate [orthos tatic standing Rig ht Pulse Oximeter] Respiratory Rate Blood Pressure Blood Pressure [Le ft Arm] 141/62 H 138/77 117/63 Blood Pressure [Ri ght Upper Arm] Blood Pressure [or thostatic lying Le ft Arm] Blood Pressure [or thostatic sitting Left Arm] Blood Pressure [or thostatic standing Left Arm] Pulse Oximetry Oxygen Delivery Ut thod 01/22/24 22:50 01/22/24 23:00 01/22/24 23:03 Temperature Pulse Rate Pulse Rate [Left P ulse Oximeter] 51 L 63 67 Pulse Rate [Right Pulse Oximeter] Pulse Rate [Right Radial] Pulse Rate [orthos tatic lying Right Pulse Oximeter] Pulse Rate [orthos tatic sitting Righ t Pulse Oximeter] Pulse Rate [orthos tatic standing Rig ht Pulse Oximeter] Respiratory Rate Blood Pressure Blood Pressure [Le ft Arm] 123/62 100/56 L 108/59 L Blood Pressure [Ri ght Upper Arm] Blood Pressure [or thostatic lying Le ft Arm] Blood Pressure [or thostatic sitting Left Arm] Blood Pressure [or thostatic standing Left Arm] Pulse Oximetry Oxygen Delivery Ut thod 01/22/24 23:10 01/22/24 23:15 01/22/24 23:20 Temperature Pulse Rate Pulse Rate [Left P ulse Oximeter] 53 L 59 L 56 L Pulse Rate [Right Pulse Oximeter] Pulse Rate [Right Radial] Pulse Rate [orthos tatic lying Right Pulse Oximeter] Pulse Rate [orthos tatic sitting Righ t Pulse Oximeter] Pulse Rate [orthos tatic standing Rig ht Pulse Oximeter] Respiratory Rate Blood Pressure Blood Pressure [Le ft Arm] 106/53 L 105/53 L 115/60 Blood Pressure [Ri ght Upper Arm] Blood Pressure [or thostatic lying Le ft Arm] Blood Pressure [or thostatic sitting Left Arm] Blood Pressure [or thostatic standing Left Arm] Pulse Oximetry Oxygen Delivery Ut thod 01/22/24 23:25 01/22/24 23:30 01/22/24 23:35 Temperature Pulse Rate Pulse Rate [Left P ulse Oximeter] 50 L 47 L 54 L Pulse Rate [Right Pulse Oximeter] Pulse Rate [Right Radial] Pulse Rate [orthos tatic lying Right Pulse Oximeter] Pulse Rate [orthos tatic sitting Righ t Pulse Oximeter] Pulse Rate [orthos tatic standing Rig ht Pulse Oximeter] Respiratory Rate Blood Pressure Blood Pressure [Le ft Arm] 121/58 L 122/50 L 108/57 L Blood Pressure [Ri ght Upper Arm] Blood Pressure [or thostatic lying Le ft Arm] Blood Pressure [or thostatic sitting Left Arm] Blood Pressure [or thostatic standing Left Arm] Pulse Oximetry Oxygen Delivery Ut thod 01/22/24 23:40 01/22/24 23:45 01/22/24 23:50 Temperature Pulse Rate Pulse Rate [Left P ulse Oximeter] 61 51 L 52 L Pulse Rate [Right Pulse Oximeter] Pulse Rate [Right Radial] Pulse Rate [orthos tatic lying Right Pulse Oximeter] Pulse Rate [orthos tatic sitting Righ t Pulse Oximeter] Pulse Rate [orthos tatic standing Rig ht Pulse Oximeter] Respiratory Rate Blood Pressure Blood Pressure [Le ft Arm] 102/54 L 119/54 L 123/61 Blood Pressure [Ri ght Upper Arm] Blood Pressure [or thostatic lying Le ft Arm] Blood Pressure [or thostatic sitting Left Arm] Blood Pressure [or thostatic standing Left Arm] Pulse Oximetry Oxygen Delivery Ut thod 01/22/24 23:55 01/23/24 00:00 01/23/24 00:05 Temperature Pulse Rate Pulse Rate [Left P ulse Oximeter] 54 L 58 L 60 Pulse Rate [Right Pulse Oximeter] Pulse Rate [Right Radial] Pulse Rate [orthos tatic lying Right Pulse Oximeter] Pulse Rate [orthos tatic sitting Righ t Pulse Oximeter] Pulse Rate [orthos tatic standing Rig ht Pulse Oximeter] Respiratory Rate Blood Pressure Blood Pressure [Le ft Arm] 107/56 L 126/61 112/56 L Blood Pressure [Ri ght Upper Arm] Blood Pressure [or thostatic lying Le ft Arm] Blood Pressure [or thostatic sitting Left Arm] Blood Pressure [or thostatic standing Left Arm] Pulse Oximetry Oxygen Delivery Ut thod 01/23/24 00:10 01/23/24 00:15 01/23/24 00:20 Temperature Pulse Rate Pulse Rate [Left P ulse Oximeter] 58 L 55 L 58 L Pulse Rate [Right Pulse Oximeter] Pulse Rate [Right Radial] Pulse Rate [orthos tatic lying Right Pulse Oximeter] Pulse Rate [orthos tatic sitting Righ t Pulse Oximeter] Pulse Rate [orthos tatic standing Rig ht Pulse Oximeter] Respiratory Rate Blood Pressure Blood Pressure [Le ft Arm] 123/95 H 111/53 L 122/61 Blood Pressure [Ri ght Upper Arm] Blood Pressure [or thostatic lying Le ft Arm] Blood Pressure [or thostatic sitting Left Arm] Blood Pressure [or thostatic standing Left Arm] Pulse Oximetry Oxygen Delivery Ut thod 01/23/24 00:25 01/23/24 00:30 01/23/24 00:35 Temperature 99.4 F Pulse Rate Pulse Rate [Left P ulse Oximeter] 54 L 51 L 56 L Pulse Rate [Right Pulse Oximeter] Pulse Rate [Right Radial] Pulse Rate [orthos tatic lying Right Pulse Oximeter] Pulse Rate [orthos tatic sitting Righ t Pulse Oximeter] Pulse Rate [orthos tatic standing Rig ht Pulse Oximeter] Respiratory Rate 18 Blood Pressure Blood Pressure [Le ft Arm] 123/61 120/59 L 120/64 Blood Pressure [Ri ght Upper Arm] Blood Pressure [or thostatic lying Le ft Arm] Blood Pressure [or thostatic sitting Left Arm] Blood Pressure [or thostatic standing Left Arm] Pulse Oximetry 94 Oxygen Delivery Me thod Room Air 01/23/24 00:35 01/23/24 00:35 01/23/24 00:38 Temperature 99.4 F Pulse Rate 54 L Pulse Rate [Left P ulse Oximeter] 55 L Pulse Rate [Right Pulse Oximeter] Pulse Rate [Right Radial] Pulse Rate [orthos tatic lying Right Pulse Oximeter] Pulse Rate [orthos tatic sitting Righ t Pulse Oximeter] Pulse Rate [orthos tatic standing Rig ht Pulse Oximeter] Respiratory Rate 18 Blood Pressure Blood Pressure [Le ft Arm] Blood Pressure [Ri ght Upper Arm] Blood Pressure [or thostatic lying Le ft Arm] Blood Pressure [or thostatic sitting Left Arm] Blood Pressure [or thostatic standing Left Arm] Pulse Oximetry Oxygen Delivery Me thod 01/23/24 00:40 01/23/24 00:45 01/23/24 00:50 Temperature Pulse Rate Pulse Rate [Left P ulse Oximeter] 55 L 55 L 55 L Pulse Rate [Right Pulse Oximeter] Pulse Rate [Right Radial] Pulse Rate [orthos tatic lying Right Pulse Oximeter] Pulse Rate [orthos tatic sitting Righ t Pulse Oximeter] Pulse Rate [orthos tatic standing Rig ht Pulse Oximeter] Respiratory Rate Blood Pressure Blood Pressure [Le ft Arm] 118/56 L 122/59 L 107/51 L Blood Pressure [Ri ght Upper Arm] Blood Pressure [or thostatic lying Le ft Arm] Blood Pressure [or thostatic sitting Left Arm] Blood Pressure [or thostatic standing Left Arm] Pulse Oximetry Oxygen Delivery Me thod 01/23/24 00:55 01/23/24 01:05 01/23/24 01:15 Temperature Pulse Rate Pulse Rate [Left P ulse Oximeter] 60 52 L 58 L Pulse Rate [Right Pulse Oximeter] Pulse Rate [Right Radial] Pulse Rate [orthos tatic lying Right Pulse Oximeter] Pulse Rate [orthos tatic sitting Righ t Pulse Oximeter] Pulse Rate [orthos tatic standing Rig ht Pulse Oximeter] Respiratory Rate Blood Pressure Blood Pressure [Le ft Arm] 112/54 L 95/50 L 107/53 L Blood Pressure [Ri ght Upper Arm] Blood Pressure [or thostatic lying Le ft Arm] Blood Pressure [or thostatic sitting Left Arm] Blood Pressure [or thostatic standing Left Arm] Pulse Oximetry Oxygen Delivery Ut thod 01/23/24 01:37 01/23/24 01:45 01/23/24 02:00 Temperature 99.4 F Pulse Rate Pulse Rate [Left P ulse Oximeter] 53 L 45 L 42 L Pulse Rate [Right Pulse Oximeter] Pulse Rate [Right Radial] Pulse Rate [orthos tatic lying Right Pulse Oximeter] Pulse Rate [orthos tatic sitting Righ t Pulse Oximeter] Pulse Rate [orthos tatic standing Rig ht Pulse Oximeter] Respiratory Rate 16 Blood Pressure Blood Pressure [Le ft Arm] 100/46 L 95/50 L 112/54 L Blood Pressure [Ri ght Upper Arm] Blood Pressure [or thostatic lying Le ft Arm] Blood Pressure [or thostatic sitting Left Arm] Blood Pressure [or thostatic standing Left Arm] [facility] 01/[facility] 02:15 01/23/24 02:30 01/23/24 02:45 Temperature Pulse Rate Pulse Rate [Left P ulse Oximeter] 49 L 58 L 45 L Pulse Rate [Right Pulse Oximeter] Pulse Rate [Right Radial] Pulse Rate [orthos tatic lying Right Pulse Oximeter] Pulse Rate [orthos tatic sitting Righ t Pulse Oximeter] Pulse Rate [orthos tatic standing Rig ht Pulse Oximeter] Respiratory Rate Blood Pressure Blood Pressure [Le ft Arm] 112/55 L 88/46 L 100/50 L Blood Pressure [Ri ght Upper Arm] Blood Pressure [or thostatic lying Le ft Arm] Blood Pressure [or thostatic sitting Left Arm] Blood Pressure [or thostatic standing Left Arm] Pulse Oximetry Oxygen Delivery Ut thod 01/23/24 03:00 01/23/24 03:00 01/23/24 03:22 Temperature 97.8 F Pulse Rate 40 L Pulse Rate [Left P ulse Oximeter] 48 L 46 L Pulse Rate [Right Pulse Oximeter] Pulse Rate [Right Radial] Pulse Rate [orthos tatic lying Right Pulse Oximeter] Pulse Rate [orthos tatic sitting Righ t Pulse Oximeter] Pulse Rate [orthos tatic standing Rig ht Pulse Oximeter] Respiratory Rate 16 Blood Pressure Blood Pressure [Le ft Arm] 108/46 L 98/49 L Blood Pressure [Ri ght Upper Arm] Blood Pressure [or thostatic lying Le ft Arm] Blood Pressure [or thostatic sitting Left Arm] Blood Pressure [or thostatic standing Left Arm] Pulse Oximetry 94 Oxygen Delivery Me thod Room Air 01/23/24 03:30 01/23/24 03:37 01/23/24 03:45 Temperature Pulse Rate Pulse Rate [Left P ulse Oximeter] 41 L 47 L 41 L Pulse Rate [Right Pulse Oximeter] Pulse Rate [Right Radial] Pulse Rate [orthos tatic lying Right Pulse Oximeter] Pulse Rate [orthos tatic sitting Righ t Pulse Oximeter] Pulse Rate [orthos tatic standing Rig ht Pulse Oximeter] Respiratory Rate Blood Pressure Blood Pressure [Le ft Arm] 109/55 L 105/51 L 106/55 L Blood Pressure [Ri ght Upper Arm] Blood Pressure [or thostatic lying Le ft Arm] Blood Pressure [or thostatic sitting Left Arm] Blood Pressure [or thostatic standing Left Arm] Pulse Oximetry Oxygen Delivery Me thod 01/23/24 04:00 01/23/24 04:15 01/23/24 04:30 Temperature 98.0 F Pulse Rate Pulse Rate [Left P ulse Oximeter] 45 L 43 L 49 L Pulse Rate [Right Pulse Oximeter] Pulse Rate [Right Radial] Pulse Rate [orthos tatic lying Right Pulse Oximeter] Pulse Rate [orthos tatic sitting Righ t Pulse Oximeter] Pulse Rate [orthos tatic standing Rig ht Pulse Oximeter] Respiratory Rate 18 Blood Pressure Blood Pressure [Le ft Arm] 117/57 L 102/55 L 103/55 L Blood Pressure [Ri ght Upper Arm] Blood Pressure [or thostatic lying Le ft Arm] Blood Pressure [or thostatic sitting Left Arm] Blood Pressure [or thostatic standing Left Arm] Pulse Oximetry 95 Oxygen Delivery Me thod Room Air 01/23/24 04:45 01/23/24 05:00 01/23/24 05:21 Temperature Pulse Rate Pulse Rate [Left P ulse Oximeter] 40 L 44 L 41 L Pulse Rate [Right Pulse Oximeter] Pulse Rate [Right Radial] Pulse Rate [orthos tatic lying Right Pulse Oximeter] Pulse Rate [orthos tatic sitting Righ t Pulse Oximeter] Pulse Rate [orthos tatic standing Rig ht Pulse Oximeter] Respiratory Rate Blood Pressure Blood Pressure [Le ft Arm] 108/52 L 106/53 L 92/48 L Blood Pressure [Ri ght Upper Arm] Blood Pressure [or thostatic lying Le ft Arm] Blood Pressure [or thostatic sitting Left Arm] Blood Pressure [or thostatic standing Left Arm] Pulse Oximetry Oxygen Delivery Ut thod 01/23/24 05:30 01/23/24 05:45 01/23/24 05:50 Temperature Pulse Rate Pulse Rate [Left P ulse Oximeter] 49 L 72 Pulse Rate [Right Pulse Oximeter] Pulse Rate [Right Radial] Pulse Rate [orthos tatic lying Right Pulse Oximeter] 43 L Pulse Rate [orthos tatic sitting Righ t Pulse Oximeter] 41 L Pulse Rate [orthos tatic standing Rig ht Pulse Oximeter] 42 L Respiratory Rate Blood Pressure Blood Pressure [Le ft Arm] 90/46 L 104/53 L Blood Pressure [Ri ght Upper Arm] Blood Pressure [or thostatic lying Le ft Arm] 110/56 L Blood Pressure [or thostatic sitting Left Arm] 126/60 Blood Pressure [or thostatic standing Left Arm] 108/58 L Pulse Oximetry Oxygen Delivery Ut thod 01/23/24 06:00 01/23/24 06:00 01/23/24 06:15 Temperature 96.9 F L Pulse Rate Pulse Rate [Left P ulse Oximeter] 39 L 39 L 38 L Pulse Rate [Right Pulse Oximeter] Pulse Rate [Right Radial] Pulse Rate [orthos tatic lying Right Pulse Oximeter] Pulse Rate [orthos tatic sitting Righ t Pulse Oximeter] Pulse Rate [orthos tatic standing Rig ht Pulse Oximeter] Respiratory Rate 18 Blood Pressure Blood Pressure [Le ft Arm] 100/59 L 100/59 L 108/57 L Blood Pressure [Ri ght Upper Arm] Blood Pressure [or thostatic lying Le ft Arm] Blood Pressure [or thostatic sitting Left Arm] Blood Pressure [or thostatic standing Left Arm] Pulse Oximetry 96 Oxygen Delivery Ut thod Room Air 01/23/24 06:30 01/23/24 06:45 01/23/24 07:00 Temperature Pulse Rate Pulse Rate [Left P ulse Oximeter] 43 L 43 L Pulse Rate [Right Pulse Oximeter] Pulse Rate [Right Radial] 55 L Pulse Rate [orthos tatic lying Right Pulse Oximeter] Pulse Rate [orthos tatic sitting Righ t Pulse Oximeter] Pulse Rate [orthos tatic standing Rig ht Pulse Oximeter] Respiratory Rate Blood Pressure Blood Pressure [Le ft Arm] 109/53 L 98/48 L Blood Pressure [Ri ght Upper Arm] Blood Pressure [or thostatic lying Le ft Arm] Blood Pressure [or thostatic sitting Left Arm] Blood Pressure [or thostatic standing Left Arm] Pulse Oximetry Oxygen Delivery Me thod 01/23/24 07:00 01/23/24 08:00 01/23/24 08:20 Temperature 97.2 F L Pulse Rate 45 L Pulse Rate [Left P ulse Oximeter] Pulse Rate [Right Pulse Oximeter] Pulse Rate [Right Radial] 55 L Pulse Rate [orthos tatic lying Right Pulse Oximeter] Pulse Rate [orthos tatic sitting Righ t Pulse Oximeter] Pulse Rate [orthos tatic standing Rig ht Pulse Oximeter] Respiratory Rate 20 Blood Pressure 89/50 L Blood Pressure [Le ft Arm] 89/50 L Blood Pressure [Ri ght Upper Arm] Blood Pressure [or thostatic lying Le ft Arm] Blood Pressure [or thostatic sitting Left Arm] Blood Pressure [or thostatic standing Left Arm] Pulse Oximetry 98 Oxygen Delivery Me thod Room Air 01/23/24 08:21 01/23/24 08:30 Temperature 97.6 F Pulse Rate 40 L 58 L Pulse Rate [Left P ulse Oximeter] Pulse Rate [Right Pulse Oximeter] Pulse Rate [Right Radial] Pulse Rate [orthos tatic lying Right Pulse Oximeter] Pulse Rate [orthos tatic sitting Righ t Pulse Oximeter] Pulse Rate [orthos tatic standing Rig ht Pulse Oximeter] Respiratory Rate Blood Pressure 84/46 L Blood Pressure [Le ft Arm] Blood Pressure [Ri ght Upper Arm] Blood Pressure [or thostatic lying Le ft Arm] Blood Pressure [or thostatic sitting Left Arm] Blood Pressure [or thostatic standing Left Arm] Pulse Oximetry 96 94 Oxygen Delivery Me thod Labs Labs: Laboratory Results - last 24 hr 01/22/24 01/22/24 01/22/24 12:40 12:44 15:53 WBC 6.85 RBC 3.84 L Hgb 11.5 L Hct 35.9 L MCV 94 MCH 30 MCHC 32 RDW Coeff of Jacob 14.2 Plt Count 80 L Neut % (Auto) 88.7 H Lymph % (Auto) 6.1 L [place] % (Auto) 4.5 Eos % (Auto) 0.0 Baso % (Auto) 0.3 Neut # (Auto) 6.10 Lymph # (Auto) 0.40 L [place] # (Auto) 0.30 Eos # (Auto) 0.00 Baso # (Auto) 0.02 Abs Immat Gran (auto) 0.03 Imm/Tot Granulo (auto) 0.4 ESR 16 H Sodium 132 L Potassium 3.6 Chloride 103 Carbon Dioxide 22 Anion Gap 7 BUN 23 Creatinine 0.9 Estimated Creat Clear 54.15 Estimated GFR 85 Glucose 107 Lactate 1.0 Calcium 8.6 Magnesium Total Bilirubin 1.3 AST 25 ALT 13 Alkaline Phosphatase 58 C-Reactive Protein 8.6 H Total Protein 6.3 Albumin 4.0 Procalcitonin 0.49 TSH Urine Color Urine Appearance Urine pH Ur Specific [place] Urine Protein Urine Glucose (UA) Urine Ketones Urine Blood Urine Nitrite Urine Bilirubin Urine Urobilinogen Ur Leukocyte Esterase Urine RBC Urine WBC Ur Squamous Epith Cells Urine Bacteria Monoscreen Negative Lab Acknowledgement POC Troponin I 0.02 0.02 01/22/24 01/22/24 01/23/24 19:41 20:03 05:59 WBC 6.15 RBC 3.89 L Hgb 11.8 L Hct 37.1 MCV 95 MCH 30 MCHC 32 RDW Coeff of Jacob Plt Count 87 L Neut % (Auto) Lymph % (Auto) [place] % (Auto) Eos % (Auto) Baso % (Auto) Neut # (Auto) Lymph # (Auto) [place] # (Auto) Eos # (Auto) Baso # (Auto) Abs Immat Gran (auto) Imm/Tot Granulo (auto) ESR Sodium 139 Potassium 3.6 Chloride 111 Carbon Dioxide 21 Anion Gap 7 BUN 18 Creatinine 0.9 Estimated Creat Clear 54.15 Estimated GFR 85 Glucose 108 Lactate Calcium 8.3 L Magnesium 2.3 Total Bilirubin AST ALT Alkaline Phosphatase C-Reactive Protein 19.1 H Total Protein Albumin Procalcitonin TSH 2.300 Urine Color Margi A Urine Appearance Clear Urine pH 5.0 Ur Specific [place] 1.020 Urine Protein Trace A Urine Glucose (UA) Negative Urine Ketones Negative Urine Blood Negative Urine Nitrite Negative Urine Bilirubin Negative Urine Urobilinogen 1.0 Ur Leukocyte Esterase Negative Urine RBC 0-2 Urine WBC 0-2 Ur Squamous Epith Cells None Urine Bacteria None Monoscreen Lab Acknowledgement Test Added POC Troponin I 01/23/24 07:12 WBC RBC Hgb Hct MCV MCH MCHC RDW Coeff of Jacob Plt Count Neut % (Auto) Lymph % (Auto) [place] % (Auto) Eos % (Auto) Baso % (Auto) Neut # (Auto) Lymph # (Auto) [place] # (Auto) Eos # (Auto) Baso # (Auto) Abs Immat Gran (auto) Imm/Tot Granulo (auto) ESR Sodium Potassium Chloride Carbon Dioxide Anion Gap BUN Creatinine Estimated Creat Clear Estimated GFR Glucose Lactate Calcium Magnesium Total Bilirubin AST ALT Alkaline Phosphatase C-Reactive Protein Total Protein Albumin Procalcitonin TSH Urine Color Urine Appearance Urine pH Ur Specific [place] Urine Protein Urine Glucose (UA) Urine Ketones Urine Blood Urine Nitrite Urine Bilirubin Urine Urobilinogen Ur Leukocyte Esterase Urine RBC Urine WBC Ur Squamous Epith Cells Urine Bacteria Monoscreen Lab Acknowledgement Test Added POC Troponin I Imaging CT scan - head: Attestation: I have reviewed the pertinent imaging results. Radiologist's impression: No acute intracranial abnormalities noted. ECG Attestation: I personally reviewed and interpreted this ECG as follows: Interpretation: Sinus bradycardia without evidence of ischemia or infarct pattern, with occasional ventricular premature complex. I reviewed electrocardiograms from 10/12/2023 and 05/02/2023. These both demonstrated normal sinus rhythm with sinus arrhythmia and frequent ventricular premature complexes.
[2024-01-23 10:59] LABS: Troponin I* 0.02 ng/mL (0.01-0.04)
[2024-01-23 11:00] LABS: Troponin I* 0.05 ng/mL (0.01-0.04)
[2024-01-23] MEDS: 0.9 % SODIUM CHLORIDE 500 ML 500 ML IV ×2 (11:02→14:22)
[2024-01-23 11:19] LABS: SARS PCR* Negative SARS-CoV-2 (Negative)
[2024-01-23] MEDS: VANCOMYCIN 1 GM/200 ML 1 GM/200 ML PIGGYBACK IVPB ×2 (11:57→22:47)
--- NOTE | 2024-01-23 12:57 | PC.NURSE ---
End of Shift Note: Patient has been up in the chair and ambulates to and from the BR with SBA d/t IV pole he needs help with getting to the bathroom. He has not complained of any pain when preformed orthostatic the second time he did complain of being a little lightheaded but not bad. He acts like being lightheaded is normal for him. will continue to monitor his blood pressure until next shift arrives for report.
[2024-01-23] MEDS: MAGNESIUM OXIDE 400 MG TABLET PO (20:29)
[2024-01-23] MEDS: PRAVASTATIN SODIUM 20 MG TABLET 10 MG PO (20:30)
[2024-01-24] VITALS (10 sets, daily range): BP systolic 101–131; BP diastolic 53–93; PULSE 43–62; RESP 16–18; TEMP 36.1–37; O2SAT 95–99
[2024-01-24] MEDS: SODIUM CHLORIDE 0.9 % (FLUSH) 10 ML SYRINGE 5 ML IVF ×3 (00:39→21:08)
[2024-01-24] MEDS: HYDROCORTISONE SOD SUCCINATE 50 MG/ML inj 100 MG IVP ×3 (00:39→16:30)
[2024-01-24] MEDS: CEFEPIME HCL 2 GM in 0.9 % SODIUM CHLORIDE Mini-bag 100 ML IVPB (04:10)
[2024-01-24] MEDS: 0.9 % SODIUM CHLORIDE 1000 ml 1,000 ML 125 ML IV (04:27)
[2024-01-24] MEDS: COSYNTROPIN 0.25 MG VIAL IVP (06:00)
[2024-01-24 06:22] LABS: Hematocrit 33.4 % (37.0-53.0); Hemoglobin* 10.5 gm/dL (13.5-17.5); Mean Corpuscular HGB Conc 31 gm/dL (32-36); Mean Corpuscular Hemoglobin 30 pg (26-34); Mean Corpuscular Volume 95 fL (80-100); Platelet Count* 72 K/uL (140-440); Red Blood Count 3.52 m/uL (4.30-5.90); White Blood Count* 3.84 K/uL (4.50-11.00)
[2024-01-24 06:27] LABS: Slide Review Reflex No
[2024-01-24 07:03] LABS: Chloride* 113 mmol/L (96-114); Potassium* 3.6 mmol/L (3.6-5.1); Sodium* 141 mmol/L (135-149)
[2024-01-24 07:06] LABS: Anion Gap 9 mEq/L (7-15); Blood Urea Nitrogen* 19 mg/dL (7-30); Carbon Dioxide* 19 mmol/L (20-32); Creatinine* 0.6 mg/dL (0.5-1.5); Est. Creatinine Clearance* 54.15; Estimated Glomerular Filt Rate 96 ml/min
[2024-01-24 07:07] LABS: Calcium* 8.1 mg/dL (8.4-10.6); Glucose* 136 mg/dL (60-115)
--- NOTE | 2024-01-24 07:56 | PC.NURSE ---
END OF SHIFT NOTE: PT A&O WITH OCCASIONAL CONFUSION. VSS ON RA WT UP APPROXIMATELY 7.5# FROM PREVIOUS DAY; CHECKED TWICE. PT DENIES CP, SOB. LSCTA. LLE WITH REDNESS AND +1 PITTING EDEMA. 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 TELE NSR - SINUS NASIM. NIGHT UNEVENTFUL.
[2024-01-24 08:25] LABS: C Reactive Protein* 12.7 mg/dL (0.5-1.0)
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
[2024-01-24 11:11] LABS: Troponin I* 0.02 ng/mL (0.01-0.04)
[2024-01-24] MEDS: DOXYCYCLINE HYCLATE 100 MG PO ×2 (13:06→21:07)
[2024-01-24] MEDS: cephALEXin 500 MG CAPSULE PO ×2 (13:06→21:07)
--- NOTE | 2024-01-24 15:42 | PC.NURSE ---
End of shift [id number]: Pt has been A&O, afebrile and VSS this shift. IV fluids discontinued & PIV in left AC SL and C/D/I. Pt has been independent & up ad purnima since SL with a steady gait. Denies pain, dizziness or nausea. Orthostatic VS completed & pt had no c/o dizziness. BP remained stable. LLE cellulitis receding from outlined border, tender to the touch. TELE reads SB rate in the 40s-50s. IV abx discontinued & transitioned to PO Keflex TID and PO Doxycycline BID. Pt prefers to take his pills whole with applesauce for ease of swallowing. Plan is to discharge home tomorrow. ?
--- NOTE | 2024-01-24 18:59 | PC.NURSE ---
Nursing Care Hours: [id number] Pt this shift calm and cooperative, alert and oriented. No c/o pain. VSS. Redness receding from outline on L leg. pt independent, seen walking dunbar frequently. Tele shows Yosi arrhythmia with prolong QT and occasional PAC.
[2024-01-24] MEDS: PRAVASTATIN SODIUM 20 MG TABLET 10 MG PO (21:07)
[2024-01-24] MEDS: MAGNESIUM OXIDE 400 MG TABLET PO (21:57)
[2024-01-24 23:27] LABS: Cortisol, Serum 12.4 ug/dL
[2024-01-25 00:12] LABS: EBV Ab Nuclear Ag IgG >600.0 U/mL (0.0-21.9); EBV Ab Viral Capsid Ag IgM <10.0 U/mL (0.0-43.9)
[2024-01-25 03:50] VITALS: BP 122/70; PULSE 41; RESP 18; TEMP 36.3; O2SAT 96
--- NOTE | 2024-01-25 06:01 | PC.NURSE ---
END OF SHIFT NOTE: PT A&O WITH OCCASIONAL CONFUSION. VSS ON RA; AFEBRILE. PT DENIES CP, SOB, N/V. LSCTA. LLE ERYTHEMA CONTINUES TO RECEDED FROM INITIAL OUTLINED BORDER.?TELE SINUS NASIM. AMBULATES INDEPENDENTLY. PT HAD VISITOR, JOHANNA-FRIEND. THEY WALKED THE HALLS SEVERAL TIMES TOGETHER. TAKES PILL WITH APPLESAUCE. SLEPT ON AND OFF THROUGHOUT SHIFT. CALL LIGHT WITHIN PT REACH. NIGHT UNEVENTFUL.?
[2024-01-25 06:18] VITALS: BP 120/65; BP 122/66; BP 131/71; PULSE 43; PULSE 45; PULSE 48
[2024-01-25 06:59] LABS: Hematocrit 34.3 % (37.0-53.0); Hemoglobin* 11.3 gm/dL (13.5-17.5); Mean Corpuscular HGB Conc 33 gm/dL (32-36); Mean Corpuscular Hemoglobin 31 pg (26-34); Mean Corpuscular Volume 94 fL (80-100); Platelet Count* 125 K/uL (140-440); Red Blood Count 3.67 m/uL (4.30-5.90); White Blood Count* 4.21 K/uL (4.50-11.00)
[2024-01-25 07:00] VITALS: PULSE 70
[2024-01-25 07:20] LABS: Chloride* 113 mmol/L (96-114); Sodium* 139 mmol/L (135-149)
[2024-01-25 07:21] LABS: Potassium* 3.4 mmol/L (3.6-5.1)
[2024-01-25 07:22] LABS: Slide Review Reflex No
[2024-01-25 07:23] LABS: Anion Gap 7 mEq/L (7-15); Carbon Dioxide* 19 mmol/L (20-32); Creatinine* 0.6 mg/dL (0.5-1.5); Est. Creatinine Clearance* 54.15; Estimated Glomerular Filt Rate 96 ml/min
[2024-01-25 07:24] LABS: Blood Urea Nitrogen* 20 mg/dL (7-30); Calcium* 8.3 mg/dL (8.4-10.6); Glucose* 103 mg/dL (60-115)
[2024-01-25] MEDS: cephALEXin 500 MG CAPSULE PO (09:13)
[2024-01-25] MEDS: DOXYCYCLINE HYCLATE 100 MG PO (09:13)
[2024-01-25] MEDS: SODIUM CHLORIDE 0.9 % (FLUSH) 10 ML SYRINGE 5 ML IVF (09:14)
[2024-01-25 09:41] VITALS: BP 115/57; PULSE 60; RESP 18; TEMP 36.6; O2SAT 99
[2024-01-25] MEDS: POTASSIUM BICARB 25 MEQ EFFERVESCENT TAB PO (10:39)
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
--- NOTE | 2024-01-25 12:26 | PC.NURSE ---
shift note: pt up ambulating in dunbar indept. pt denies pain in bilat l/e. redness decreasing from original marked outline. 1+ edema to lt calf and ankle. Dc'd #24 gauge intact from lt AC. Reviewed dc instructions and copies sent with pt. Belongings reviewed and sent with pt.
[2024-01-25 15:43] LABS: Lyme ELISA Reflex 0.03 IV (<=0.90)
[2024-01-25 20:00] LABS: Cortisol 0 Min 39.8 ug/dL
[2024-01-28 04:42] LABS: Anaplasma phagocyt PCR Not Detected; Babesia microti by PCR Not Detected; Babesia species by PCR Not Detected; Ehrlichia chaffeensis by PCR Not Detected; Ehrlichia ewingii/canis by PCR Not Detected; Ehrlichia muris-like by PCR Not Detected
== END 2024-01-25 11:30 | disposition home or self-care (01) | DRG 603 ==
LOC: ED 17:37 → MEDSURG 18:37
PROVIDERS: Internal Medicine; Admitting Provider Physician Assistant; Emergency Provider Family Medicine; PCP Surgery; Visit Provider Family Medicine
DX: L03.116 Cellulitis of left lower limb (principal); E87.1 Hypo-osmolality and hyponatremia; I95.9 Hypotension, unspecified; R00.1 Bradycardia, unspecified; B27.09 Gammaherpesviral mononucleosis with other complications; R16.1 Splenomegaly, not elsewhere classified; D69.6 Thrombocytopenia, unspecified; G31.84 Mild cognitive impairment of uncertain or unknown etiology; S91.302A Unspecified open wound, left foot, initial encounter; E78.5 Hyperlipidemia, unspecified; R10.12 Left upper quadrant pain; I25.10 Atherosclerotic heart disease of native coronary artery without angina pectoris; M35.3 Polymyalgia rheumatica; K57.30 Diverticulosis of large intestine without perforation or abscess without bleeding; K44.9 Diaphragmatic hernia without obstruction or gangrene; G47.00 Insomnia, unspecified; I71.21 Aneurysm of the ascending aorta, without rupture
CPT/HCPCS: 36415; 70450; 71260; 74177; 80048; 80053; 81001; 82533; 83605; 83735; 84145; 84443; 84484; 85025; 85027; 85651; 86140; 86308; 86618; 86663; 86664; 86665; 87040; 87081; 87468; 87469; 87484; 87635; 87798; 93005; 93306; 97161; 97165; 97535; 99285; 99291; A9270; J0692; J0736; J0744; J0834; J1720; J3372; J7030; Q9967

== ENCOUNTER 2024-01-27 22:56 | Inpatient (IN) | payer MEDICARE, BC, SELFPAY ==
[2024-01-27 23:05] VITALS: BP 116/65; PULSE 64; RESP 16; TEMP 36.4; O2SAT 97; BMI 25.8
--- NOTE | 2024-01-27 23:53 | ED_ITS ---
HPI - General Adult General Time Seen by Provider: 23:53 Date Seen: 01/27/24 Chief complaint: Edema Stated complaint: both ankles swollen/red Time Seen by Provider: 01/27/24 23:48 Source: patient and RN notes reviewed Mode of arrival: ambulatory Limitations: no limitations History of Present Illness HPI narrative: 84-year-old male recent released from the hospital who comes in with ankle swelling. Reviewed most recent discharge summary from his recent admission, discharged on January 24. Patient was initially admitted with left lower leg extremity cellulitis, was initially treated with cefepime and clindamycin, discharged on Keflex and doxycycline it was improving. Patient did receive a fluid bolus to do hypotension and was briefly on Levophed moved but it was felt that this hypotension and also noted bradycardia may be related to adrenal insufficiency night. At time of discharge, right lower extremity was noted to be without cellulitis or edema, left leg with small area of erythema and warmth on the lateral left foot no tenderness. Patient presents today with bilateral lower extremity swelling and increasing redness of the left lower leg. Denies fever, chills, cough, shortness of breath. Not really having increased pain in the left leg. No pain in the right leg. No new injury. Related Data Home Medications ?Medication ?Instructions ?Recorded ?Confirmed aspirin 81 mg tablet,delayed 81 mg PO DAILY 05/03/22 01/22/24 release ascorbic acid (vitamin C) 1,000 mg 1 g PO DAILY 01/22/24 01/22/24 tablet cephalexin 500 mg capsule 2,000 mg PO ONCE PRN 01/22/24 01/22/24 cholecalciferol (vitamin D3) 50 50 mcg PO DAILY 01/22/24 01/22/24 mcg (2,000 unit) capsule cyanocobalamin (vitamin B-12) 1,000 mcg sublingual DAILY 01/22/24 01/22/24 1,000 mcg sublingual lozenge ipratropium bromide 42 mcg (0.06 2 spray intranasal HS PRN 01/22/24 01/22/24 %) nasal spray magnesium 250 mg tablet 250 mg PO DAILY 01/22/24 01/22/24 pravastatin 10 mg tablet 10 mg PO HS 01/22/24 01/22/24 Previous Rx's ?Medication ?Instructions ?Recorded cephalexin 500 mg capsule 500 mg PO TID 5 days #15 caps 01/25/24 doxycycline hyclate 100 mg tablet 100 mg PO BID 10 days #20 tabs 01/25/24 Allergies Allergy/AdvReac Type Severity Reaction Status Date / Time amoxicillin Allergy Rash Verified 01/22/24 16:06 penicillin V Allergy Rash Verified 01/22/24 16:06 [facility] Medical History (Updated 01/25/24 @ 12:15 by Anayeli Moore MD) Hypotension ?I95.9 - Hypotension, unspecified (ICD-10) Insomnia ?G47.00 - Insomnia, unspecified (ICD-10) Spondylosis ?M47.9 - Spondylosis, unspecified (ICD-10) Thrombocytopenia ?D69.6 - Thrombocytopenia, unspecified (ICD-10) Hypercholesterolemia ?E78.00 - Pure hypercholesterolemia, unspecified (ICD-10) ASHD (arteriosclerotic heart disease) ?I25.10 - Atherosclerotic heart disease of [place] coronary artery without angina pectoris (ICD-10) Polymyalgia rheumatica ?M35.3 - Polymyalgia rheumatica (ICD-10) Squamous carcinoma Rheumatoid arthritis ?M06.9 - Rheumatoid arthritis, unspecified (ICD-10) Surgical History History of arthroscopy of right knee (01/16/06) ?Z98.890 - Other specified postprocedural states (ICD-10) 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) ?Z96.641 - Presence of right artificial hip joint (ICD-10) 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/19) ?Z96.642 - Presence of left artificial hip joint (ICD-10) H/O prostatectomy ?Z90.79 - Acquired absence of other genital organ(s) (ICD-10) H/O inguinal hernia repair (~2007) ?Z98.890 - Other specified postprocedural states (ICD-10) ?Z87.19 - Personal history of other diseases of the digestive system (ICD-10) 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) ?Z98.890 - Other specified postprocedural states (ICD-10) 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) ?Z96.651 - Presence of right artificial knee joint (ICD-10) Social History What is your current living situation?: I presently have a place to live Problems where you live: no known problems Problems where you live details: N/A In the past 12 months, utilities in danger of being shut off: no In past 12 months, lack of transportation kept you from medical appts, meetings, work, or getting things needed for daily living: no In the past 12 mos, have been you worried that your food would run out before you had money to buy more?: never true In the past 12 mos, the food you bought just didn't last and you didn't have money to buy more?: never true Highest level of school completed/degree received: Master's degree Smoking Status: Never smoker Do you use any of these nicotine containing products: None Second hand tobacco smoke exposure: No How often do you have a drink containing alcohol: never How often do you have six or more drinks on one occasion: Never AUDIT-C Alcohol total score: 0 Non-prescribed substance use: denies use How often does anyone, including family, friends and others, physically hurt you : never How often does anyone, including family, friends and others, insult or talk down to you: never How often does anyone, including family, friends and others, threaten you with harm: never How often does anyone, including family, friends and others, scream or curse at you: never service: No Exam Narrative: Exam Narrative: General: Well-developed and well-nourished, no acute distress Head: Atraumatic and normocephalic Eyes: Pupils are equal reactive, extraocular motions intact, conjunctiva clear ENT: External nose and ears are normal, posterior pharynx without erythema or exudate Neck: No midline cervical tenderness, full spontaneous range of motion the neck, trachea midline, no adenopathy Heart: Regular rate and rhythm no murmurs or thrills Lungs: Clear to auscultation bilaterally without wheezes or crackles Abdomen: Soft, nontender, nondistended with active bowel sounds Musculoskeletal: Bilateral pitting edema to the shins Neurologic: Awake, alert, and oriented x3, no gross focal neurologic deficits, cranial nerves intact as tested Psych: Mood and affect are appropriate Skin: Erythema on the dorsum of the left foot extending to the ankle and the posterior lower leg Const: Vital Signs, click to edit/add: Vital Signs - 24 hr 01/27/24 23:05 Temperature 97.5 F L Pulse Rate [Left P ulse Oximeter] 64 Respiratory Rate 16 Blood Pressure [Ri ght Upper Arm] 116/65 Pulse Oximetry 97 Oxygen Delivery Me thod Room Air Course Course ED Course: Patient seen examined, presents with concern for left leg redness and bilateral leg swelling. Patient recently admitted, received large volume of IV fluids during that visit due to concern for hypotension. Patient denies fever, chills, weakness or other symptoms of systemic infection. He denies cough or shortness of breath, lungs are clear, no evidence for pulmonary edema. He does have pitting edema of the bilateral lower extremities, the right leg is normal in color, left foot and lower leg with erythema and warmth. I did ask Dr. Sorensen to examine the patient as she had seen him for his prior admission, notes that leg swelling and redness is significantly worse than when she previously saw him. Reevaluation(s) Time of Reevaluation #1: 01:00 Reevaluation #1: Labs ordered and independently interpreted by me with normal white blood cell count, slightly low hemoglobin although stable for patient, mild thrombocytopenia which also stable for the patient, normal CBC, minimally elevated CRP, BNP elevated. Patient with bilateral lower extremity swelling after recent hospitalization for shock which may have been related to sepsis verses adrenal insufficiency, received large volumes of fluids during that visit. The bilateral lower extremity edema is not overly worrisome in this setting, likely represents 3rd spacing in fluid overload and should resolve over time. However, increased redness of the left foot in setting of recent diagnosis of cellulitis with worsening symptoms in spite of oral antibiotics is concerning. Patient says that the leg became more red during his hospitalization when he was on IV antibiotics as well. Given worsening symptoms in setting of appropriate antibiotic therapy, consider other etiology for this including peripheral vascular disease with stasis dermatitis, DVT also possible. Patient will be admitted for further evaluation treatment, recommend left lower extremity ultrasound which can be done in the morning when technologist is available. Time of Reevaluation #2: 01:16 Reevaluation #2: Care discussed with Dr. Morillo, hospitalist who requests ultrasound be done prior to admission. Ultrasound will be ordered and will touch base with admitting based on results. Time of Reevaluation #3: 02:14 Reevaluation #3: Ultrasound of left lower extremity negative for DVT. Care discussed with Dr. Morillo who accepts patient for observation. Updated patient with plan. Vital Signs Vital signs: Initial Vital Signs Temperature 97.5 F L 01/27/24 23:05 Temperature Source Temporal Artery Scan 01/27/24 23:05 Pulse Rate 64 01/27/24 23:05 Pulse Rhythm Regular 01/27/24 23:05 Respiratory Rate 16 01/27/24 23:05 Blood Pressure 116/65 01/27/24 23:05 Blood Pressure Mean 82 01/27/24 23:05 Blood Pressure Position Sitting 01/27/24 23:05 Pulse Oximetry 97 01/27/24 23:05 Oxygen Delivery Method Room Air 01/27/24 23:05 Vital Signs Temperature 97.5 F L 01/27/24 23:05 Pulse Rate 64 01/27/24 23:05 Respiratory Rate 16 01/27/24 23:05 Blood Pressure 116/65 01/27/24 23:05 Pulse Oximetry 97 01/27/24 23:05 Oxygen Delivery Method Room Air 01/27/24 23:05 Temperature 97.5 F L 01/27/24 23:05 Pulse Rate 64 01/27/24 23:05 Respiratory Rate 16 01/27/24 23:05 Blood Pressure 116/65 01/27/24 23:05 Pulse Oximetry 97 01/27/24 23:05 Oxygen Delivery Method Room Air 01/27/24 23:05 Medical Decision Making Lab Data Labs: Lab Results 01/28/24 Range/Units 00:24 WBC 4.99 (4.50-11.00) K/uL RBC 3.79 L (4.30-5.90) m/uL Hgb 11.4 L (13.5-17.5) gm/dL Hct 35.6 L (37.0-53.0) % MCV 94 (80-100) fL MCH 30 (26-34) pg MCHC 32 (32-36) gm/dL RDW Coeff of Jacob 14.2 (11.5-15.5) % Plt Count 115 L (140-440) K/uL Neut % (Auto) 66.2 (42.0-72.0) % Lymph % (Auto) 22.6 (20-44) % [place] % (Auto) 5.2 (0.0-11.0) % Eos % (Auto) 2.8 (0.0-7.0) % Baso % (Auto) 0.4 (0.0-3.0) % Neut # (Auto) 3.30 (1.7-7.0) K/uL Lymph # (Auto) 1.13 (0.90-2.90) K/uL [place] # (Auto) 0.30 (0.00-0.90) K/UL Eos # (Auto) 0.14 (0.00-0.50) K/uL Baso # (Auto) 0.02 (0.00-0.30) K/uL Abs Immat Gran (auto) 0.14 (0.00-0.30) K/uL Imm/Tot Granulo (auto) 2.8 % Sodium 139 (135-149) mmol/L Potassium 3.9 (3.6-5.1) mmol/L Chloride 107 (96-114) mmol/L Carbon Dioxide 27 (20-32) mmol/L Anion Gap 5 L (7-15) mEq/L BUN 23 (7-30) mg/dL Creatinine 0.7 (0.5-1.5) mg/dL Estimated Creat Clear 54.15 Estimated GFR 91 ml/min Glucose 92 (60-115) mg/dL Calcium 9.0 (8.4-10.6) mg/dL Magnesium 2.2 (1.5-2.6) mg/dL C-Reactive Protein 1.2 H (0.5-1.0) mg/dL NT-Pro-B Natriuret Pep 1160 pg/mL Discharge Plan Discharge Prescriptions: No Action aspirin 81 mg tablet,delayed release (DR/EC) 81 mg PO DAILY pravastatin 10 mg tablet 10 mg PO HS cephalexin 500 mg capsule 2,000 mg PO ONCE PRN Rx Instructions: Take 4 capsules (2000mg) 1 hour prior to dental appointment. ipratropium bromide 42 mcg (0.06 %) spray,non-aerosol 2 spray INTRANASAL HS PRN magnesium 250 mg tablet 250 mg PO DAILY cyanocobalamin (vitamin B-12) 1,000 mcg lozenge 1,000 mcg sublingual DAILY ascorbic acid (vitamin C) 1,000 mg tablet 1 g PO DAILY cholecalciferol (vitamin D3) 50 mcg (2,000 unit) capsule 50 mcg PO DAILY cephalexin 500 mg Capsule 500 mg PO TID 5 Days Qty: 15 0RF doxycycline hyclate 100 mg Tablet 100 mg PO BID 10 Days Qty: 20 0RF Follow Up/Referrals: Chico Osorio MD [Primary Care Provider] -
[2024-01-28] VITALS (7 sets, daily range): BP systolic 109–177; BP diastolic 60–76; PULSE 49–69; RESP 16–18; TEMP 36.4–37.1; O2SAT 95–98; BMI 26.2
--- OUTSIDE RECORDS SUMMARY | 2024-01-28 00:14 | XMS_ITS | Clinical Summary ---
Author Organization [facility] Address [address] [place] [address] Care Team Providers Care Cloth Tearer Name Role Phone Elsewhere, Pcp Primary Care Provider Unavailabl e Source Comments Patient records contain information from all sites at [facility]. For routine questions regarding patient records, call [phone] during business hours, M-F 8:00 AM - 5:00 PM Central Time. Record requests for emergency care only can be directed to [phone] at any time.[facility] Allergies Active Allergy Reactions Criticality Noted Date [...] Encounters Date Type Department Care Team Description 01/25/2024 Clinical Communication Department of Cardiovascular Diseases in [place], [place] [address], [place] [address] Devyn Reid M.D. 01/22/2024 Refill Division of Rheumatology in [place], [place] [address] [place] [phone] Ashlee Lopez APRN, C.N.P. Med Refill 11/13/2023 2:45 PM CDT Office Visit Division of Rheumatology in [address] [phone] Ashlee Lopez APRN, C.N.P. Polymyalgia Rheumatica (HCC) (Primary Dx) 11/05/2023 Clinical Communication Division of Rheumatology in [place], [place] [address] [place] [phone] Ashlee Lopez APRN, C.N.P. Return Visit 10/31/2023 Clinical Communication Division of Rheumatology in [address] [phone] Ashlee Lopez APRN, C.N.P. Lab Monitoring (10/30/23) 10/30/2023 10:45 AM CDT Clinical Communication Virtual Review in [address] [phone] Pre-visit Intake from Last 3 Months Immunizations [...] week 11/04/2019 How often do you attend [facility] or adventism services? 1 to 4 times per year [...] Answer Date Recorded PHQ-2 Score 0 10/01/2018 [facility] [place] of Occupat ional Health - Occupational Stress [...] Master's degree (e.g., MA, MS, Jing, MEd, TINNER HELPER, GIANFRANCO) 01/21/2019 Sex and Gender Information Value Date Recorded Sex Assigned at Male 02/20/2020 4:49 PM CDT Gender Identity Male 03/14/2018 12:28 PM CLIENT SUPPORT PROFESSIONAL Sexual Orientation Bisexual 02/20/2020 4: 48 PM [...] 11/13/2023 2:26 PM CDT Plan of Treatment Upcoming Encounters Date Type Department Care Team (Late st Contact Info) Description 03/06/2024 10:45 AM CLIENT SUPPORT PROFESSIONAL Office Visit Department of Cardiovascular Diseases in [place], [place] [address] [place] [address] Devyn Reid M.D. [address] [place] [phone] Health Maintenance Due Date Last Done Comments Depression Screening (Annual PHQ-2) 04/30/2023 Fall Risk Screen (Annual) 04/30/2023 COVID-19 Vaccine ( season) 2023 02/09/2023, 01/24/2022, 07/26/2021, Additional history exists Influenza Vaccine (#1) 2024 , 01/11/2022, 02/28/2021, Additional history exists DTaP,Tdap,and Td Vaccines (2 - Td or Tdap) 03/25/2024 03/25/2014 Hepatitis A Vaccines Completed 04/24/2007, 04/13/20 Pneumococcal vaccine (65+ years) Completed 05/29/2017, 05/11/2015, 03/19/2006 Zoster Vaccines Completed 08/14/2018, 06/28, 06/04/2018, Additional history exists Colonoscopy Discontinued 06/02/2019, 07/27/2015 RSV vaccine - (32-36 weeks) or 60+ years Completed 02/27/2023 Cologuard Discontinued 09/21/2023 Colorectal Cancer Surveillance Discontinued CT Colonography Discontinued HPV Vaccines Aged Out No longer eligi ble based on patient's age to complete this topic Medical Devices Implanted Type Area Shoe Treer Device Identifier Shelf Expiration Date Model / Serial / Lot Hip Implant Hip Implant Left: Hip Ocular Lens Ocular Lens Eye Description:Both eyes. Shoulder Implant Shoulder Implant Right: Shoulder Care Teams Cloth Tearer Relationship Specialty Start Date End Date Elsewhere, Pcp PCP - General Internal Medicine 08/29/21
--- OUTSIDE RECORDS SUMMARY | 2024-01-28 00:14 | XMS_ITS | Continuity of Care Document ---
Author Organization [facility] Address [address] [address] [place] [address] Phone Care Team Providers Care Energy Scheduler Name Role Phone Octavia Reyes Unavailable Unavailable [...] Diagnoses Date Provider Providers Copied on Encounter [facility], [address] [address], [place], [place], [id number], tel:[phone] [facility] No Information 0 Laatsch PAC Octavia. [address] [facility], [facility] [address], [place], [id number], [place]. tel:[phone] Kel Moffett MD. tel:[phone] [facility], [address] [address], [place], [place], [id number], [place] tel:[phone] [facility] Small bowel lesion 0 Janetatsch PAC Octavia. [address] [place] [address], [facility] [address], [place], [id number], [place]. tel:[phone] Kel Moffett MD, [address] [place] [address], [address]. tel:[phone] [facility], [address] [address], [place], [place], [id number], [place] tel:[phone] [facility] Iron deficiency anemia, unspecified Feb-2 0 Lauren Ariza. [address] [facility], [facility] [address], [place], [id number], [place]. tel:[phone] Kel Moffett MD. tel:[phone] ng Provider: Octavia AVILA, [facility] [address], [place], [address]. tel:[phone] [facility], [address] [address], [place], [place], [id number], [place] tel:[phone] [facility] Iron deficiency anemia, unspecified iron deficiency anemia typeDysphagi a, unspecified type Feb-2 6 0 Laatsch PAC Octavia. [address] [place] [address], [facility] [address], [place], [id number], [place]. tel:[phone] Kel Moffett MD. tel:[phone] ng Provider: Referral Self, USE FOR SELF REFERRALS. Offic/outpt E&m New Mod Sever [facility], [address] [address], [place], [place], [id number], tel:[phone] [facility] GI Symptoms or Concerns (chief complaint) Iron deficiency anemia, unspecified iron deficiency anemia typeRUQ pain May- 0 Blade Dudley. [address] [facility], [address], [place], [place], [id number], . tel:[phone] Kel Moffett MD. tel:[phone] ng Provider: Chico Hurtado, [address] [place] [address], [address]. tel:[phone] [facility], [address] [address], [place], [place], [id number], tel:[phone] No Information 0 No Information Referring Provider: Chico Hurtado, [address] [place] [address], [address]. tel:[phone] Family History Family Member Type Diagnosis Age [...] ional interface ; Source: Other Registry Novel [id number], all formulations administered Note: [facility] bi-direct ional [...] Registry Payers Payer name Insurance type Covered democrat ID Authoriza tivladimir(s) [employer] Medicare MB [id number] Social History Type Description Quantity Date Captured [...] and colonoscopy were ordered and performed at [facility]. These records are not currently available, but the patient states that Functional Status Date Functional Assessmen t No Information Instructions Date Instruction Additional Infor mation No Information Assessments Type Assessment Date No Information Patient Care Teams Name Effective Dates (start - stop) Status Members No Information
--- OUTSIDE RECORDS SUMMARY | 2024-01-28 00:15 | XMS_ITS | Encounter Summary ---
Author Organization [facility] Address [address] [place] [address] Care Team Providers Care Frothing Machine Operator Name Role Phone Elsewhere, Pcp Primary Care Provider Unavailabl e Reason for Visit * Reason Comments Med Refill Encounter Details Date Type Department Care Team (Late st Contact Info) Description 01/22/2024 Refill Division of Rheumatology in [place], [place] [address] [place] [phone] Ashlee Lopez, NAGI, C.N.P. [address] [place] [phone] Med Refill Social History Tobacco Use Types [...] often do you attend chur ch or quaker services? 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 [address] [place] [address] [place] [address] documented as of this encounter Visit Diagnoses Not on filedocumented in this encounter Care Teams Frothing Machine Operator Relationship Specialty Start Date End Date Elsewhere, Pcp PCP - General Internal Medicine 08/29/21 documented as of this encounter
--- OUTSIDE RECORDS SUMMARY | 2024-01-28 00:15 | XMS_ITS | Encounter Summary ---
Author Organization [facility] Address [address] [place] [address] Care Team Providers Care Crystal Mounter Name Role Phone Elsewhere, Pcp Primary Care Provider Unavailabl e Reason for Referral * Outpatient (Routine) - Authorized Specialty Diagnoses / Procedures Referred By Octavia mcclain Referred To Contact Rheumatology Ashlee Lopez APRN, C.N.P. [address] [place] [phone] [facility] Referral ID Status Reason Start Date Expiration Date V isits Requested Visits Authorized [id number] Authorized 11/13/2023 05/14/2025 1 1 Reason for Visit * Outpatient (Routine) - Closed Specialty Diagnoses / Procedures Referred By Octavia mcclain Referred To Contact Rheumatology Ashlee Lopez APRN, C.N.P. [address] [place] [phone] [facility] Referral ID Status Reason Start Date Expiration Date Visits Re quested Visits Authorized [id number] Closed 02/20/2023 02/19/2026 1 1 Encounter Details Date Type Department Care Team (Latest Contact Info) Description 11/13/2023 2:45 PM CDT Office Visit Division of Rheumatology in [place], [place] [address] [place] [phone] Ashlee Lopez APRN, C.N.P. 200 [place] [phone] Polymyalgia Rheumatica (HCC) (Primary Dx) Social History [...] How often do you attend [facility] or amish services? 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 He saw a umbrella cutter (Dr. Roberto Raza in [facility]) and was started on Medrol Dosepak with [...] global assessment (0-100) 5 -- 5 -- Voice Teacher global assessment (0-100) 20 20 -- 0 ESR (mm/h) 10 8 17 15 CRP (mg/L) 7.3 1 3.3 3 Disease Activity Score 28 using ESR ([id number]) 3.43 -- 2.05 -- Disease Activity Score 28 using CRP ([id number]) 3.54 -- 1.56 -- Clinical Disease Activity [...] documented in this encounter Plan of Treatment Upcoming Encounters Date Type Department Care Team (Late st Contact Info) Description 03/06/2024 10:45 AM ENVELOPE FOLDING MACHINE ADJUSTER Office Visit Department of Cardiovascular Diseases in [place], [place] [address] [phone] Devyn Reid M.D. [address] [place] [phone] Scheduled Orders Name Type Priority Associated Diagnoses Orde r Schedule CRP (C-Reactive Protein) Lab Routine Polymyalgia Rheumatica (HCC) Expected: 11/12/2024 (Approximate), Expires: 02/12/2025 Sedimentation Rate Lab Routine Polymyalgia Rheumatica (HCC) Expected: 11/12/2024 (Approximate), Expires: 02/12/2025 CBC with Differential, Blood Lab Routine Polymyalgia Rheumatica (HCC) Expected: 11/12/2024 (Approximate), Expires: 02/12/2025 AST (Aspartate Aminotransferase) Lab Routine Polymyalgia Rheumatica ([facility]) Expected: 11/12/2024 (Approximate), Expires: 02/12/2025 Creatinine with Estimated GFR Lab Routine Polymyalgia Rheumatica ([facility]) Expected: 11/12/2024 (Approximate), Expires: 02/12/2025 Scheduled Referrals Name Type Priority Associated Diagnoses Order Schedule Rheumatology office visit (clinic) Outpatient Referral Routine Expected: 11/12/2024 (Approximate), Expires: 02/12/2025 documented as of this encounter Visit Diagnoses Diagnosis Polymyalgia Rheumatica (HCC)- Primary documented in this encounter Care Teams Crystal Mounter Relationship Specialty Start Date End Date Elsewhere, Pcp PCP - General Internal Medicine 08/29/21 documented as of this encounter
--- OUTSIDE RECORDS SUMMARY | 2024-01-28 00:15 | XMS_ITS | Referral Summary ---
Author Organization [facility] Address [address] [place] [address] Care Team Providers Care Clay Products Machine Operator Name Role Phone Elsewhere, Pcp Primary Care Provider Unavailabl e Source Comments Patient records contain information from all sites at [facility]. For routine questions regarding patient records, call [phone] during business hours, M-F 8:00 AM - 5:00 PM Central Time. Record requests for emergency care only can be directed to [phone] at any time.[facility] Encounters Date Type Department Care Team Description 01/25/2024 Clinical Communication Department of Cardiovascular Diseases in [place], [place] [address] [place] [address] Devyn Reid M.D. 01/22/2024 Refill Division of Rheumatology in [place], [place] [address] [place] [phone] Ashlee Lopez APRN, C.N.P. Med Refill 11/13/2023 2:45 PM CDT Office Visit Division of Rheumatology in [place], [place] [address] [place] [phone] Ashlee Lopez APRN, C.N.P. Polymyalgia Rheumatica (HCC) (Primary Dx) 11/05/2023 Clinical Communication Division of Rheumatology in [place], [place] [address] [place] [phone] Ashlee Lopez APRN, C.N.P. Return Visit 10/31/2023 Clinical Communication Division of Rheumatology in [place], [place] [address] [place] [address] Ashlee Lopez APRN, C.N.P. Lab Monitoring (10/30/23) 10/30/2023 10:45 AM CDT Clinical Communication Virtual Review in [place], [place] 200 [place] [phone] Pre-visit Intake from Last 3 Months Allergies [...] with family, friends, or neighbors? Never 11/04/19 How often do you get togethe r with friends or relatives? Once a week 11/04/2019 How often do you attend chur ch or mandaen services? 1 to 4 times per year [...] Answer Date Recorded PHQ-2 Score 0 10/01/2018 [facility] [place] of Occupat ional Health - Occupational Stress [...] Master's degree (e.g., MA, MS, Jing, MEd, SALESPERSON MEN'S FURNISHINGS, GIANFRANCO) 01/21/2019 Sex and Gender Information Value Date Recorded Sex Assigned at Male 02/20/2020 4:49 PM CDT Gender Identity Male 03/14/2018 12:28 PM HEEL PADDER Sexual Orientation Bisexual 02/20/2020 4: 48 PM [...] st Contact Info) Description 03/06/2024 10:45 AM HEEL PADDER Office Visit Department of Cardiovascular Diseases in [place], [place] [address] [place] [phone] Devyn Reid M.D. [address] [place] [phone] Medical Devices Implanted Type Area Transition Teacher Device Identifier Shelf Expiration Date Model / Serial / Lot Hip Implant Hip Implant Left: Hip Ocular Lens Ocular Lens Eye Description:Both eyes. Shoulder Implant Shoulder Implant Right: Shoulder Care Teams Clay Products Machine Operator Relationship Specialty Start Date End Date Elsewhere, Pcp PCP - General Internal Medicine 08/29/21
--- OUTSIDE RECORDS SUMMARY | 2024-01-28 00:15 | XMS_ITS | Encounter Summary ---
Author Organization [facility] Address [address] [place] [address] Care Team Providers Care Compounding Assistant Name Role Phone Elsewhere, Pcp Primary Care Provider Unavailabl e Reason for Visit * Reason Onset Date Comments Lab Monitoring 10/31/2023 10/30/23 Encounter Details Date Type Department Care Team (Latest Contact Info) Description 10/31/2023 Clinical Communication Division of Rheumatology in [place], [place] [address] [place] [phone] Ashlee Lopez, WOOD MILL SUPERVISOR, C.N.P. [address] [place] [phone] Lab Monitoring (10/30/23) Social History Tobacco Use [...] often do you attend chur ch or anglican services? 1 to 4 times per year [...] Answer Date Recorded PHQ-2 Score 0 10/01/2018 [facility] [place] of Occupat ional Health - Occupational Stress [...] Master's degree (e.g., MA, MS, Jing, MEd, CASTING WHEEL OPERATOR HELPER, GIANFRANCO) 01/21/2019 Sex and Gender Information Value Date Recorded Sex Assigned at Male 02/20/2020 4:49 PM CDT Gender Identity Male 03/14/2018 12:28 PM PRN PHYSICAL THERAPIST Sexual Orientation Bisexual 02/20/2020 4: 48 PM [...] st Contact Info) Description 03/06/2024 10:45 AM PRN PHYSICAL THERAPIST Office Visit Department of Cardiovascular Diseases in [place], [place] [address] [phone] Devyn Reid M.D. [address] [place] [phone] documented as of this encounter Visit Diagnoses Not on filedocumented in this encounter Care Teams Compounding Assistant Relationship Specialty Start Date End Date Elsewhere, Pcp PCP - General Internal Medicine 08/29/21 documented as of this encounter
--- OUTSIDE RECORDS SUMMARY | 2024-01-28 00:15 | XMS_ITS | Encounter Summary ---
Author Organization [facility] Address [address] [place] [address] Care Team Providers Care Sql Ssis Developer Name Role Phone Elsewhere, Pcp Primary Care Provider Unavailabl e Encounter Details Date Type Department Care Team (Latest Contact Info) Description 01/25/2024 Clinical Communication Department of Cardiovascular Diseases in [place], [place] [address] [place] [address] Devyn Reid M.D. [address] [place] [phone] Social History Tobacco Use Types Packs/Day Years [...] often do you attend chur ch or gnosticism services? 1 to 4 times per year [...] Answer Date Recorded PHQ-2 Score 0 10/01/2018 [facility] of Occupat ional Health - Occupational Stress [...] Master's degree (e.g., MA, MS, Jing, MEd, CHAIR MENDER, GIANFRANCO) 01/21/2019 Sex and Gender Information Value Date Recorded Sex Assigned at Male 02/20/2020 4:49 PM CDT Gender Identity Male 03/14/2018 12:28 PM CORE ANALYSIS OPERATOR Sexual Orientation Bisexual 02/20/2020 4: 48 PM CDT documented as of this encounter Miscellaneous Notes * Telephone Encounter - Devyn Reid M.D. - 01/25/2024 1:24 PM CDT We do not see records from [facility] so we can not provide recommendations while he is hospitalized. I can see his echocardiogram, it showed some abnormalities which do not appear to be acute. It suggested dilatation of the aorta, which did not appear to be confirmed on chest CT. I would recommend follow up with us, 45 minute appointment, post hospital discharge. Please ask thepatient request records from [facility] prior to follow-up. Thank you, Devyn Reid * Telephone Encounter - Devyn Reid M.D. - 01/25/2024 1:11 PM CDT His heart rate was adequate during our visit. I could not find documentation of his hospitalization. In which hospital is at? Is the any cardiac reason for him to be in the hospital? Does he have anycardiac symptoms? If it does, we will consider echo and/or Holter monitor. Please let me know. Otherwise, if no new cardiac symptoms, no additional testing will be needed from a cardiac standpoint. Thank you, Devyn Reid documented in this encounter Plan of Treatment Upcoming Encounters Date Type Department Care Team (Late st Contact Info) Description 03/06/2024 10:45 AM CORE ANALYSIS OPERATOR Office Visit Department of Cardiovascular Diseases in [place], [place] [address] [place] [phone] Devyn Reid M.D. [address] [place] [phone] documented as of this encounter Visit Diagnoses Not on filedocumented in this encounter Care Teams Sql Ssis Developer Relationship Specialty Start Date End Date Elsewhere, Pcp PCP - General Internal Medicine 08/29/21 documented as of this encounter
--- OUTSIDE RECORDS SUMMARY | 2024-01-28 00:15 | XMS_ITS | Encounter Summary ---
Author Organization [facility] Address [address] [place] [phone] Care Team Providers Care Information Manager Name Role Phone Elsewhere, Pcp Primary Care Provider Unavailabl e Reason for Visit * Reason Onset Date Comments Return Visit 11/05/2023 Encounter Details Date Type Department Care Team (Latest Contact Info) Description 11/05/2023 Clinical Communication Division of Rheumatology in [place], [place] [address] [place] [phone] Ashlee Lopez, SURVEY INSTRUMENT OPERATOR, C.N.P. [address] [place] [phone] Return Visit Social History Tobacco Use Types [...] often do you attend chur ch or mandaeism services? 1 to 4 times per year [...] Answer Date Recorded PHQ-2 Score 0 10/01/2018 [facility] [place] of Occupat ional Health - Occupational Stress [...] Master's degree (e.g., MA, MS, Jing, MEd, YARD SPECIALIST, GIANFRANCO) 01/21/2019 Sex and Gender Information Value Date Recorded Sex Assigned at Male 02/20/2020 4:49 PM CDT Gender Identity Male 03/14/2018 12:28 PM AIRCRAFT ENGINE SPECIALIST Sexual Orientation Bisexual 02/20/2020 4: 48 PM CDT documented as of this encounter Plan of Treatment Upcoming Encounters Date Type Department Care Team (Late st Contact Info) Description 03/06/2024 10:45 AM AIRCRAFT ENGINE SPECIALIST Office Visit Department of Cardiovascular Diseases in [place], [place] [address] [place] [address] Devyn Reid M.D. [address] [place] [address] [place] [phone] documented as of this encounter Visit Diagnoses Not on filedocumented in this encounter Care Teams Information Manager Relationship Specialty Start Date End Date Elsewhere, Pcp PCP - General Internal Medicine 08/29/21 documented as of this encounter
--- OUTSIDE RECORDS SUMMARY | 2024-01-28 00:15 | XMS_ITS | Clinical Summary ---
Author Organization [facility] Address [place], [place] [address] Care Team Providers Care Cook House Supervisor Name Role Phone Jaylon Davalos Unavailable Unavaila Bonita Hall NP Unavailable [phone] Estevan CourtneyyD Unavailable [phone] Roberto Raza MD Unavailable [phone] Chico Osorio MD Primary Care Provider [phone] Allergies Active Allergy Reactions Criticality Noted Date [...] (08/03/2022): Methotrexate and folic acid via Rheumatology Philo Roch Insomnia 06/30/2016 Pure hypercholesterolemia 04/06/2016 Spondylosis [...] day and after yoga [facility] Allergic rhinitis, cause unspecified 04/17/2007 Nocturia 04/17/2007 [...] Encounters Date Type Department Care Team Description 01/23/2024 4:00 PM CDT Ancillary Procedure [facility] [address] [place] [address] Arrived 01/23/2024 Orders Only [facility] Scanner 1 scan: (1-Ord) [place], CT HEAD/BRAIN WO CON, 01/23/2024 01/23/2024 Travel 01/22/2024 Orders Only [facility] Scanner 1 scan: (1-Ord) [place], CHEST ABDOMEN PELVIS W/CON, 01/22/2024 01/22/2024 Nurse Triage [facility] [address] [place] [address] Chico Osorio MD Weak 01/15/2024 Telephone [facility] [address] [place] [address] Chico Osorio MD Refill Request (Trazodone ) 12/28/[address] [address] Chico Osorio MD Questions (regarding vaccinations ) 12/06/[address] [address] Brenda Abreu PA Appointment Request (ENT Audio) 12/05/[address] [address] Chico Osorio MD Questions (regarding COVID-19 vaccine) 12/03/2023 1:15 PM CDT Ancillary Procedure [address] [address] 12/03/[address] [address] Palak Hwang PA Results 12/03/2023 Travel 11/30/2023 3:30 PM CDT Ancillary Procedure [address] [address] 11/30/2023 2:50 PM CDT Office Visit [address] [address] Palak Hwang PA Head Injury (Left sided fell- see triage note- pain comes and goes ); Ear Problem 11/30/2023 Travel 11/30/2023 Nurse Triage [address] [address] Palak Hwang PA Appointment; Head Injury 11/29/2023 Nurse Triage [address] [address] Chico Osorio MD Ear Pain/problem 11/27/2023 3:20 PM CDT Office [place] [facility] [address] [place] [address] Octavia Olvera MD Ear Problem (Left ear pain x 3 days ); Derm Problem (Rash on right lower leg x 3 days ) 11/27/2023 Travel 11/26/2023 Nurse Triage [facility] [address] [place] [address] Chico Osorio MD Ear Pain/problem 11/09/2023 Telephone [facility] [address] [place] [address] Chico Osorio MD Medication Management 11/09/2023 Telephone [facility] [address] [place] [address] Chico Osorio MD Appointment 11/05/2023 2:30 PM CDT Office Visit [facility] [address] [place] [address] Marleny Padron MD Follow Up (Thrombocytopenia (HC)//) 11/05/2023 Travel 10/31/2023 9:00 AM CDT Office Visit [facility] [address] [place] [address] Jaylon Dougherty PsyD, LP Individual Therapy 10/30/2023 4:00 PM CDT Orders Only [facility] [address] [place] [address] Lab, [facility] 10/30/2023 Travel from Last 3 Months Immunizations Name Administration Dates Next Due AMB Influenza, IIV3 (Age >=3 years)(Flu Clinic Only) 02/24/2008 COVID-19 vaccine (Pfizer-Bio NTech 30mcg/0.3mL) 12YO+ GERALD-SUCROSE PF MDV 07/26/2021 COVID-19 vaccine (Pfizer-Bio NTech 30mcg/0.3mL) PF, MDV 02/28/2021,06/22/2020,06/01/2020 Hepatitis A (Adult) 04/24/2007,04/13/2006 Inactivated Polio Vaccine 04/13/2006 Influenza A (H1N1), Inactivated 04/21/2009 Influenza A (H1N1), Inactiva isai (Age >=3 Years) 04/21/2009 Influenza Virus, Unspecified 02/28/2021,02/29/20 18 Influenza, High-dose Inactivated 01/19/2017,04/2015,01/08/2014 Influenza, High-dose Quadriv alent Inactivated 02/19/2023 Influenza, [...] History Relation Name Comments Heart Disease Father [place] age 69, Cancer-prostate Maternal Grandfather Cancer-colon Maternal [...] Body Mass Index 23.98 05/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 Plan of Treatment Upcoming Encounters Date Type Department Care Team (Late st Contact Info) Description 02/01/2024 10:05 AM CDT Office Visit [facility] [address] [place] [address] Chico Osorio MD [address] [place] [address] Health Maintenance Due Date Last Done Comments COVID-19 vaccine series ( season) 2023 02/09/2023, 01/24/2022, 07/26/2021, Additional history exists Influenza for age 65+ 12/30/2023 02/19/2023 , 01/11/2022, 02/28/2021, Additional history exists Tetanus booster 03/25/2024 03/25/2014, 08/2009, 05/16/2002 Depression screening for age 12+ [...] Completed 02/27/2023 Medical Devices Implanted Type Area Trade Promotion Analyst Device Identifier Shelf Expiration Date Model / Serial / Lot Mesh Marlex [id number] - [id number] Implanted:Qty: 1 on 12/25/[address] [facility] Left: Inguinal DAVOL [id number] / / [id number] Procedures Procedure Name Priority Date/Time Associated Diagnosis Comments ECHO TTE COMPLETE WO CONTRAST Routine 01/23/2024 4:35 PM CDT Bradycardia Hypotension SCAN-CT INTERPRETATION 01/23/2024 12:00 AM CDT SCAN-CT INTERPRETATION 01/22/2024 12:00 AM CDT MR HEAD BRAIN WWO JEANETH 12/03/2023 1:2 [...] (HC) from Last 3 Months Results * ECHO TTE COMPLETE WO CONTRAST (01/23/2024 4:35 PM CDT) AORTIC VALVE MEAN PG 7 mmHg EJECTION FRACTION 63 % PEAK TR VELOCITY 3.4 m/s LVEDD 4.3 cm EJECTION FRACTION 60 - 65% Anatomical Region Laterality Modality Ultrasound 01/23/2024 3:31 PM CDT Narrative 01/24/2024 9:52 AM CDT ECHOCARDIOGRAM TARA WILKINS ?Accession#: ?? [id number] : ?1940 84 years Study Date: ?? 01/23/2024 3:31:36 PM Gender: M ? BP: ? 107/54 mmHg Height: 173.00 cm ? BSA: ?1.90 m? ? ? Weight: 76.00 kg ?Tech: ? MSR ?Referring MD: RAYNE WATKINS Site: ? [facility] Reading Location: Mobile OP Patient Location: Outpatient. Procedure: 2D, Color Doppler and Spectral Doppler. Indication for study: Bradycardia; Hypotension Cardiac Rhythm: Sinus bradycardia and with premature ventricular contractions.Study quality: Fair. Final Impressions: 1. Normal LV size, normal wall thickness, normal global systolic function with an estimated EF of 60 - 65%. 2. Right ventricular cavity size is normal, global systolic RV function is normal. 3. The aortic valve is trileaflet and sclerotic, no stenosis and moderate regurgitation. 4. Mild-moderate tricuspid regurgitation. 5. Mildly enlarged left atrium. 6. 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 7. The 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, respiratory size variation less than 50%. 8. Moderately increased estimated pulmonary pressures by tricuspid regurgitation velocity and right atrial pressure (46 mmHg plus RAP). COMMENTS: ascending aorta is not well visualized, can affect accuracy of measurement. Consider CMR to better assess size of ascending aorta and quantitate degree of aortic insufficiency. Chamber Sizes and Function Normal left ventricular size, normal wall thickness, normal global systolic function with an estimated EF of 60 - 65%. Left atrial size is mildly enlarged. Right ventricular cavity size is normal, global systolic RV function is normal. The right atrium is mildly enlarged. Right atrial volume index is 31 ml/m? ? ?. Right atrial area is 19 cm? ? ?. The pulmonary artery is not well visualized. The sinus of Valsalva is normal sized. The ascending aorta is dilated. Valves, RV Pressures and Diastolic Function The aortic valve is trileaflet and sclerotic, no stenosis and moderate regurgitation. The mitral valve is normal in structure, trace mitral regurgitation. Indeterminate pattern of LV diastolic filling. The tricuspid valve is normal in structure. Tricuspid regurgitation is mild-moderate. The tricuspid regurgitant velocity is 3.4 m/s, the estimated right ventricular systolic pressure is 46 mmHg plus right atrial pressure. There is moderately increased estimated pulmonary pressure by tricuspid regurgitation velocity and right atrial pressure. The pulmonic valve is not well visualized. Trace pulmonary regurgitation. Masses, Effusion, Shunts There is no pericardial effusion. The 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, respiratory size variation less than 50%. No left to right shunting was detected by limited color flow Doppler interrogation of the interatrial septum. MEASUREMENTS AND CALCULATIONS 2-D Measurements and LV Function: LVID (d) 4.3 cm LV FS% (2D) ?? 33 % LVID (s) 2.8 cm LVOT diameter 2.2 cm IVS (d) ??1.0 cm HR ?48 bpm LVPW (d) 1.0 cm LA Vol index ??36 ml/m2 Ao Sinus 3.9 cm RA Vol index ??31 ml/m2 Asc Ao ?? 5.0 cm RA area ? 19 cm?RV Max 4C (d) 4.1 cm Diastology: Mitral ?Tissue Doppler E Peak 1.0 m/s ??e', Septum ? 0.08 m/s A Peak 0.6 m/s ??e', Lateral ?0.08 m/s E/A ?1.8 ?E/e' Average ?? 12.05 DT ? 243 msec Aortic Valve: Vmax ? 1.8 m/s ??JUAREZ (V) ?? 2.83 cm? AI P 1/2 478 msec VTI ?0.47 m ?? JUAREZ (I) ?? 2.67 cm? ? ? LVOT V max 1.3 m/s ??Max PG ?12 mmHg LVOT VTI ?? 0.34 m ?? Mean PG ?? 7 mmHg SV ? 125 ml ?? Dim Index 0.72 SV index ?? 66 ml/m? ? ? CO ?6.0 l/min ?CI ?3.2 l/min/m? ? ? Mitral Valve: MVA ?3.1 cm? ? ? MV P 1/2 70 msec Tricuspid Valve and estimated PA pressures: TR Vmax 3.4 m/s TAPSE 2.3 cm TR maxG 46 mmHg Pulmonic Valve: PIEDV 1.1 m/s . This study was interpreted by an [facility] accredited facility. CC: HIM (med records) [facility], Med/Surg - IP [facility]. ??Final (Updated) ?? Procedure Note Oc Helton MD - 01/24/2024 ECHOCARDIOGRAM TARA WILKINS : 1940 84 years Study Date: 01/23/2024 3:31:36 PM Gender: M BP: 107/54 mmHg Height: 173.00 cm BSA: 1.90 m? ? ? Weight: 76.00 kg Tech: MSR Referring MD: RAYNE WATKINS Site: [facility] Reading Location: Mobile OP Patient Location: Outpatient. Procedure: 2D, Color Doppler and Spectral Doppler. Indication for study: Bradycardia; Hypotension Cardiac Rhythm: Sinus bradycardia and with premature ventricularcontractions.Study quality: Fair. Final Impressions: 1. Normal LV size, normal wall thickness, normal global systolic functionwith an estimated EF of 60 - 65%. 2. Right ventricular cavity size is normal, global systolic RV functionis normal. 3. The aortic valve is trileaflet and sclerotic, no stenosis and moderateregurgitation. 4. Mild-moderate tricuspid regurgitation. 5. Mildly enlarged left atrium. 6. 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 7. The 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, respiratory size variation lessthan 50%. 8. Moderately increased estimated pulmonary pressures by tricuspidregurgitation velocity and right atrial pressure (46 mmHg plus RAP). COMMENTS: ascending aorta is not well visualized, can affect accuracy ofmeasurement. Consider CMR to better assess size of ascending aorta andquantitate degree of aortic insufficiency. Chamber Sizes and Function Normal left ventricular size, normal wall thickness, normal globalsystolic function with an estimated EF of 60 - 65%. Left atrial size ismildly enlarged. Right ventricular cavity size is normal, global systolicRV function is normal. The right atrium is mildly enlarged. Right atrialvolume index is 31 ml/m? ? ?. Right atrial area is 19 cm? ? ?. The pulmonaryartery is not well visualized. The sinus of Valsalva is normal sized. Theascending aorta is dilated. Valves, RV Pressures and Diastolic Function The aortic valve is trileaflet and sclerotic, no stenosis and moderateregurgitation. The mitral valve is normal in structure, trace mitralregurgitation. Indeterminate pattern of LV diastolic filling. Thetricuspid valve is normal in structure. Tricuspid regurgitation ismild-moderate. The tricuspid regurgitant velocity is 3.4 m/s, theestimated right ventricular systolic pressure is 46 mmHg plus right atrialpressure. There is moderately increased estimated pulmonary pressure bytricuspid regurgitation velocity and right atrial pressure. The pulmonicvalve is not well visualized. Trace pulmonary regurgitation. Masses, Effusion, Shunts There is no pericardial effusion. The 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,respiratory size variation less than 50%. No left to right shunting wasdetected by limited color flow Doppler interrogation of the interatrialseptum. MEASUREMENTS AND CALCULATIONS 2-D Measurements and LV Function: LVID (d) 4.3 cm LV FS% (2D) 33 % LVID (s) 2.8 cm LVOT diameter 2.2 cm IVS (d) 1.0 cm HR 48 bpm LVPW (d) 1.0 cm LA Vol index 36 ml/m2 Ao Sinus 3.9 cm RA Vol index 31 ml/m2 Asc Ao 5.0 cm RA area 19 cm? ? ? RV Max 4C (d) 4.1 cm Diastology: Mitral Tissue Doppler E Peak 1.0 m/s e', Septum 0.08 m/s A Peak 0.6 m/s e', Lateral 0.08 m/s E/A 1.8 E/e' Average 12.05 DT 243 msec Aortic Valve: Vmax 1.8 m/s JUAREZ (V) 2.83 cm? ? ? AI P 1/2 478 msec VTI 0.47 m JUAREZ (I) 2.67 cm? ? ? LVOT V max 1.3 m/s Max PG 12 mmHg LVOT VTI 0.34 m Mean PG 7 mmHg SV 125 ml Dim Index 0.72 SV index 66 ml/m? ? ? CO 6.0 l/min CI 3.2 l/min/m? ? ? Mitral Valve: MVA 3.1 cm? ? ? MV P 1/2 70 msec Tricuspid Valve and estimated PA pressures: TR Vmax 3.4 m/s TAPSE 2.3 cm TR maxG 46 mmHg Pulmonic Valve: PIEDV 1.1 m/s . This study was interpreted by an [facility] accredited facility. CC: HIM (med records) [facility], Med/Surg - IP [facility]. Final (Updated) Rayne Watkins MD ECHO ORD * SCAN-CT INTERPRETATION (01/23/2024 12:00 AM CDT) Only the most recent of2 resultswithin the time period is included. Anatomical Region Laterality Modality Other Scanner OTHER * MR HEAD BRAIN WWO (12/03/2023 1:28 PM CDT) Anatomical Region Laterality Modality BRAIN, HEAD Magnetic Resonan ce 12/03/2023 2:57 PM CDT Narrative 12/03/2023 2:57 PM CDT For Patients: ??As a result of the Century Cures Act, medical imaging exams and procedure [...] 2:57:31 PM (Electronically Signed) Procedure Note Lamar Renteria DO - 12/03/2023 For Patients: As a result [...] For Patients: ??As a result of the 21st Century Cures Act, medical imaging exams and procedure [...] ??No skull fractures. ?? Procedure Note Malik Rosado MD - 11/30/2023 For Patients: As a result of the Century Cures Act, medical imagingexams and procedure [...] * SEDIMENTATION RATE (10/30/2023 4:04 PM CDT) [facility] SEDIMENTATION RATE 15 <20 mm/hr 2023 4:26 PM CDT [facility] Blood BLOOD SPECIMEN / Unknown Venipuncture / Unknown 10/30/2023 4:04 PM CDT 10/30/2023 4:05 PM CDT Chico Osorio MD HEMATOLOGY [facility] [address] [place] [address] * (ABNORMAL) CBC WITH AUTO DIFFERENTIAL (10/30/2023 4:04 PM CDT) [facility] WHITE BLOOD COUNT 4.6 4.5 - 11.0 thou/cu mm 10/30/2023 4:21 PM [facility] RED BLOOD COUNT 4.22(L) 4.30 - 5.90 mil/cu mm 10/30/2023 4:21 PM [facility] HEMOGLOBIN 13.2(L) 13.5 - 17.5 g/dL 10/30/2023 4:21 PM [facility] HEMATOCRIT 41.6 37.0 - 53.0 % 10/30/2023 4:21 PM [facility] MCV 99 80 - 100 fL 10/30/2023 4:21 PM [facility] MCH 31.3 26.0 - 34.0 pg 10/30/2023 4:21 PM [facility] MCHC 31.7(L) 32.0 - 36.0 g/dL 10/30/2023 4:21 PM [facility] RDW 14.1 11.5 - 15.5 % 10/30/2023 4:21 PM [facility] PLATELET COUNT 123(L) 140 - 440 thou/cu mm 10/30/2023 4:21 PM [facility] MPV 11.0 6.5 - 11.0 fL 10/30/2023 4:21 PM [facility] % NEUT 69.6 % 10/30/2023 4:21 PM [facility] % LYMPH 21.1 % 10/30/2023 4:21 PM [facility] % MONO 5.9 % 10/30/2023 4:21 PM [facility] % EOS 3.0 % 10/30/2023 4:21 PM [facility] % BASO 0.4 % 10/30/2023 4:21 PM [facility] ABSOLUTE NEUTROPHILS 3.2 1.7 - 7.0 thou/cu mm 10/30/2023 4:21 PM [facility] ABSOLUTE LYMPHOCYTES 1.0 0.9 - 2.9 thou/cu mm 10/30/2023 4:21 PM CDT [facility] ABSOLUTE MONOCYTES 0.3 <0.9 thou/cu mm 10/30/2023 4:21 PM CDT [facility] ABSOLUTE EOSINOPHILS 0.1 <0.5 thou/cu mm 10/30/2023 4:21 PM CDT [facility] ABSOLUTE BASOPHILS 0.0 <0.3 thou/cu mm 10/30/2023 4:21 PM CDT [facility] Blood BLOOD SPECIMEN / Unknown Venipuncture / Unknown 10/30/2023 4:04 PM CDT 10/30/2023 4:05 PM CDT [facility] - 10/30/2023 4:21 PM CDT Notice: This testing was ordered by an outside provider. The provider who placed this order has reviewed and approved it for completion by the lab, but is not involved in this patient's care related to the ordering of this lab. The lab will provide the testing results for CBC and Diff, AST, Creatinine, ESR, and CRP, to the outside provider, ?Andry Lopez at fax number [phone], for that provider to inform and arrange appropriate follow up with the patient. This procedure was originally ordered at [facility]. Notice: This testing was ordered by an outside provider. The provider who placed this order has reviewed and approved it for completion by the lab, but is not involved in this patient's care related to the ordering of this lab. The lab will provide the testing results for CBC and Diff, AST, Creatinine, ESR, and CRP, to the outside provider, Griffin Lopez at fax number [phone], for that provider to inform and arrange appropriate follow up with the patient. This procedure was originally ordered at [facility]. Chico Osorio MD HEMATOLOGY [facility] [address] [place], [place] [id number] * (ABNORMAL) CREATININE (10/30/2023 4:04 PM CDT) eGFR 87(L) >90 mL/min/1.7 3m2 10/30/2023 4:36 PM CDT [facility] Comment:As of 2021, eG FR is calculated by the CKD-EPI creatinine equation without race adjustment. ??eGFR can be influenced by muscle mass, exercise, and diet. ??The reported eGFR is an estimation only and is only applicable if the renal function is stable. CREATININE 0.83 0.70 - 1.20 mg/dL 10/30/2023 4:36 PM CDT [facility] Blood BLOOD SPECIMEN / Unknown Venipuncture / Unknown 10/30/2023 4:04 PM CDT 10/30/2023 4:05 PM CDT Chico Osorio MD CHEMISTRY Performing Organization Address City/[facility]/ZIP Co de Phone Number [facility] [address] [place] [address] * C-REACTIVE PROTEIN (10/30/2023 4:04 PM CDT) C-REACTIVE PROTEIN <0.3 <0.5 mg/dL 10/30/2023 4:38 PM CDT [facility] Blood BLOOD SPECIMEN / Unknown Venipuncture / Unknown 10/30/2023 4:04 PM CDT 10/30/2023 4:05 PM CDT Chico Osorio MD CHEMISTRY [facility] [address] [place] [address] * AST (SGOT) (10/30/2023 4:04 PM CDT) AST (SGOT) 31 10 - 50 IU/L 10/30/2023 4:36 PM CDT [facility] Blood BLOOD SPECIMEN / Unknown Venipuncture / Unknown 10/30/2023 4:04 PM CDT 10/30/2023 4:05 PM CDT Chico Osorio MD CHEMISTRY [facility] [address] [place] [address] from Last 3 Months Advance Directives Documents on File Type Date Recorded Patient Supervisor Bottle Machines Expl anation Healthcare Directive 09/10/2008 * Full Code (Latest Code Status on File) Date Activated Date Inactivated Comments 05/23/2007 7:13 AM 05/23/2007 2:50 PM Care Teams Cook House Supervisor Relationship Specialty Start Date End Date Chico Osorio MD [address] [place] [id number] PCP - General Family Practice 05/30/19 Jaylon Davalos, LINUX CONSULTANT Tooling Mechanic 04/20/16 Bonita Alanis NP [address] [place] [address] Cardiovascular Disease 04/20/16 Estevan Courtney PsyD [address] [place] [address] Pulmonary Medicine 04/21/16 Roberto Raza MD [address] [facility] [address] [place] [address] Rheumatology Rheumatology 06/21/17
--- OUTSIDE RECORDS SUMMARY | 2024-01-28 00:15 | XMS_ITS | Encounter Summary ---
Author Organization [facility] Address [address] [place] [address] Care Team Providers Care Morgue Attendant Name Role Phone Elsewhere, Pcp Primary Care Provider Unavailabl e Reason for Visit * Reason Onset Date Comments Pre-visit Intake 10/30/2023 Encounter Details Date Type Department Care Team (Latest Contact Info) Description 10/30/2023 10:45 AM CDT Clinical Communication Virtual Review in [place], [place] [address] [place] [address] Pre-visit Intake Social History Tobacco Use Types [...] often do you attend chur ch or jewish services? 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 [address] [place] [phone] documented as of this encounter Visit Diagnoses Not on filedocumented in this encounter Care Teams Morgue Attendant Relationship Specialty Start Date End Date Elsewhere, Pcp PCP - General Internal Medicine 08/29/21 documented as of this encounter
--- OUTSIDE RECORDS SUMMARY | 2024-01-28 00:15 | XMS_ITS | Encounter Summary ---
Author Organization [facility] Address [address], [place] [address] Care Team Providers Care Sound Effects Supervisor Name Role Phone Clinician, Not Found MD Primary Care Provider Un available Reason for Visit * Procedure/Equipment (Routine) - Incomplete Specialty Diagnoses / Procedures Referred By Contac t Referred To Contact Diagnoses Pain of left hip Procedures XR Pelvis W Lt Lateral Hip Richard Villeda MD [address] [place] [address] Referral ID Status Reason Start Date Expiration Date V isits Requested Visits Authorized [id number] Incomplete 11/14/2023 02/12/2025 1 1 Encounter Details Date Type Department Care Team (Late st Contact Info) Description 11/14/2023 10:15 AM CDT Ancillary Procedure [facility] [address] Radiology [address] [place] [phone] Richard Villeda MD [address] [place] [address] Pain of left hip Social History Tobacco [...] hip documented in this encounter Care Teams Sound Effects Supervisor Relationship Specialty Start Date End Date Clinician, Not Found, [place] [address] PCP - General 10/10/13 documented as of this encounter
--- OUTSIDE RECORDS SUMMARY | 2024-01-28 00:15 | XMS_ITS | Clinical Summary ---
Author Organization [facility] Address [address], [place] [address] Care Team Providers Care Warehouse Administrative Assistant Name Role Phone Clinician, Not Found MD Primary Care Provider Un available Source Comments You are receiving this document as you are listed as the primary care provider,follow-up provider, or the patient has been referred to you for consultation.This is in compliance with the Medicare and[facility] EHR Incentive Program,which states Providers who transition their patient to another setting of careor provider of care or refers their patient to another provider of care shouldprovide summary care record for each transition of care or referral. [facility] Allergies Active Allergy Reactions Criticality Noted Date [...] Description 11/14/2023 10:15 AM CDT Ancillary Procedure [facility] [address] [address] [address] [place] [address] Richard Villeda MD Pain of left hip 11/14/2023 9:40 AM CDT Office Visit [facility] [address] [place] [address] Richard Villeda MD Pain of left hip [...] Comments Blood Pressure 112/70 04/19/2018 3:42 PM NET FRONT END DEVELOPER Pulse - - Temperature 36.4 ??C (97.5 [...] GD from Last 3 Months Care Teams Warehouse Administrative Assistant Relationship Specialty Start Date End Date Clinician, Not Found, [place] [address] PCP - General 10/10/13
--- OUTSIDE RECORDS SUMMARY | 2024-01-28 00:15 | XMS_ITS ---
Author Organization [facility] Address [address] [place] [address] Care Team Providers Care Airport Shuttle Driver Name Role Phone Unavailable Unavailable Unavailable Surgery Details Not on file Complications Check Surgery Details section. Procedure Estimated Blood Loss Check Surgery Details section. Procedure Findings Check Surgery Details section. Procedure Specimens Taken Check Surgery Details section.
--- OUTSIDE RECORDS SUMMARY | 2024-01-28 00:16 | XMS_ITS | Clinical Summary ---
Author Organization [facility] Address [address] [place] [address] Care Team Providers Care Mail Processing Equipment Mechanic Name Role Phone Chico Osorio MD Primary Care Provider [phone] Allergies Active Allergy Reactions Criticality Noted Date [...] of Treatment Not on file Care Teams Mail Processing Equipment Mechanic Relationship Specialty Start Date End Date Chico Osorio MD [address] [place] [address] PCP - General 07/04/19
--- OUTSIDE RECORDS SUMMARY | 2024-01-28 00:16 | XMS_ITS | Referral Summary ---
Author Organization [place] Address [address] [facility] [place] [address] Care Team Providers Care Parts Analyst Name Role Phone Chico Osorio MD Primary Care Provider [phone] Allergies Active Allergy Reactions Criticality Noted Date [...] of Treatment Not on file Care Teams Parts Analyst Relationship Specialty Start Date End Date Chico Osorio MD [address] [place] [address] PCP - General 07/04/19
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
[2024-01-28 00:29] LABS: Basophils Absolute Auto 0.02 K/uL (0.00-0.30); Basophils Percent Auto 0.4 % (0.0-3.0); Eosinophils Absolute Auto 0.14 K/uL (0.00-0.50); Eosinophils Percent Auto 2.8 % (0.0-7.0); Hematocrit 35.6 % (37.0-53.0); Hemoglobin* 11.4 gm/dL (13.5-17.5); Immature Granulocytes Abs Auto 0.14 K/uL (0.00-0.30); Immature Granulocytes Pct Auto 2.8 %; Lymphocytes Absolute Auto 1.13 K/uL (0.90-2.90); Lymphocytes Percent Auto 22.6 % (20-44); Mean Corpuscular HGB Conc 32 gm/dL (32-36); Mean Corpuscular Hemoglobin 30 pg (26-34); Mean Corpuscular Volume 94 fL (80-100); Monocytes Percent Auto 5.2 % (0.0-11.0); Neutrophils Percent Auto 66.2 % (42.0-72.0); Platelet Count* 115 K/uL (140-440); RDW Coefficient of Variation % 14.2 % (11.5-15.5); Red Blood Count 3.79 m/uL (4.30-5.90); White Blood Count* 4.99 K/uL (4.50-11.00)
[2024-01-28 00:32] LABS: Slide Review Reflex No
[2024-01-28 00:43] LABS: Chloride* 107 mmol/L (96-114); Potassium* 3.9 mmol/L (3.6-5.1); Sodium* 139 mmol/L (135-149)
[2024-01-28 00:45] LABS: Creatinine* 0.7 mg/dL (0.5-1.5); Est. Creatinine Clearance* 54.15; Estimated Glomerular Filt Rate 91 ml/min
[2024-01-28 00:46] LABS: Anion Gap 5 mEq/L (7-15); Blood Urea Nitrogen* 23 mg/dL (7-30); Carbon Dioxide* 27 mmol/L (20-32)
[2024-01-28 00:47] LABS: Glucose* 92 mg/dL (60-115); Magnesium* 2.2 mg/dL (1.5-2.6)
[2024-01-28 00:49] LABS: C Reactive Protein* 1.2 mg/dL (0.5-1.0)
[2024-01-28 00:58] LABS: NT Pro B Type NatriureticPept* 1160 pg/mL
--- NOTE | 2024-01-28 01:16 | CRLHL7_ITS ---
For Patients: As a result of the Century Cures Act, medical imaging exams and procedure reports are released immediately into your electronic medical record. You may view this report before your referring provider. If you have questions, please contact your health care provider. Indication: Swelling, redness Technique: DVT ultrasound of the left lower extremity. Grayscale and color Doppler imaging utilized. Compression and augmentation as clinically warranted. Comparison: None Findings: All vessels are grossly compressible without evidence of filling defect to suggest DVT. No superficial thrombosis appreciated. Soft tissue swelling. Impression: Soft tissue swelling, no DVT appreciated. Dictated by Sree Galvez MD @ 01/28/2024 2:22:18 AM (Electronically Signed)
[2024-01-28] MEDS: cefTRIAXone 1 GM in 0.9 % SODIUM CHLORIDE Mini-bag 100 ML IVPB (01:30)
[2024-01-28] MEDS: VANCOMYCIN 1.5 GM/300 ML 1.5 GM/300 ML PIGGYBACK IVPB (03:15)
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
--- NOTE | 2024-01-28 06:23 | PC.NURSE ---
Arrived to floor at 0325 via wheelchair. A&O pleasant and cooperative. LLE red and outlined from previous stay. ?+4 pitting edema LLE and +1 pitting edema in RLE. Denies pain. VSS. Up at purnima in room.
[2024-01-28] MEDS: ASPIRIN 81 MG TABLET EC PO (08:43)
[2024-01-28] MEDS: FUROSEMIDE 10 MG/ML inj 20 MG IVP (08:43)
[2024-01-28] MEDS: CLINDAMYCIN 150 MG CAPSULE PO (09:20)
[2024-01-28] MEDS: SODIUM CHLORIDE 0.9 % (FLUSH) 10 ML SYRINGE 5 ML IVF (09:21)
[2024-01-28] MEDS: MAGNESIUM OXIDE 400 MG TABLET PO (09:23)
--- NOTE | 2024-01-28 11:41 | P.IMPN_ITS ---
Progress Note: A&P Assessment and plan (1) Asymmetric edema of both lower extremities: Problem details: Left greater than right in setting of recent LLE cellulitis, fluid overload for hypotensive episodes during previous hospitalization Previous weight 72 kg, 80 kg on discharge 01/24 BNP 1160, creatinine 0.7, echocardiogram 01/22 as below with EF 60-65% (will not repeat today, monitor) Improving Continue IV diuresis Daily weights, strict I&Os Status: Acute (2) Cellulitis: Problem details: LLE. Suspected following pedicure with open wound. Water (pool, soaking) exposure Responded to IV cefepime and vancomycin during previous hospitalization, transitioned to oral doxycycline and cephalexin on discharge Tick-borne illness etiology ruled out Continue IV Vanc, change oral clindamycin to IV cefepime Status: Acute (3) Bradycardia: Problem details: Sinus bradycardia. Baseline HR 60 in clinic. Patient reports baseline HR in 50-60s Currently stable, continue to monitor. Echocardiogram 01/22 as below Recommend outpatient follow up with [facility] for Ziopatch Status: Acute (4) Insomnia: Problem details: Previously treated with trazodone 25-50 mg at bedtime - to clarify he took this only prn, not nightly. Avoided in recent hypotension Status: Chronic (5) ASHD (arteriosclerotic heart disease): Problem details: Followed by [facility], last visit 07/25/2023, Known presumed nonobstructive coronary artery disease based on coronary atherosclerosis/calcification identified on CT (and status post reassuring stress echoes in the past). He is asymptomatic with no ischemic complaints and no functional limitations. Hyperlipidemia is well addressed with statins. Occasional ectopy, PACs Continue aspirin 81 mg daily Cardiology recommending echo/Holter monitor in the future, postponing approximately 2 years as he has been asymptomatic (previous echo 2012 and 2014) Echocardiogram 01/23/2024: Normal LV size, normal wall thickness, normal global systolic function with EF 60-65%, right ventricular cavity size is normal, global systolic RV function is normal, no stenosis and moderate regurgitation, [id number] tricuspid regurgitation, mildly enlarged left atrium, 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, 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 Status: Acute (6) Thrombocytopenia: Problem details: Chronic, baseline 118-139, 115 on admission Followed by [facility] does not believe this is related to previous methotrexate as he has been off of it for some time 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 Continue to monitor while on IV antibiotics and enoxaparin Status: Acute (7) History of polymyalgia rheumatica: Problem details: Previously on methotrexate (last dose probably around August 2023 when reviewing EMR). No recent steroid therapy since 2019, when weaned off. Followed by [facility], last visit 11/13/2023, plan to remain off of immunosuppression. 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 Suspect splenomegaly is from EBV infection. Avoid strenuous activity and follow-up with primary care provider. Status: Acute Time Spent With Patient Total time spent: Total time spent caring for the patient today was 45 minutes. This includes time spent for the visit reviewing the chart, time spent during the visit, time spent after the visit and documentation and planning in coordination of care. Subjective Date Seen: 01/28/24 Interval history: Patient was admitted overnight by our [facility] hospitalist service. Is asking already this morning if he can be discharged. Still has swelling of both lower extremities as well as new erythema of left lower extremity which had resolved over course of previous hospitalization. Denies headache or dizziness. No chest pain or shortness of breath. No recent fevers. Exam Narrative: Exam Narrative: PHYSICAL EXAM General: Pleasant, conversant, NAD HEENT: Normocephalic, atraumatic, sclera white, EOMI, oral mucosa moist Cardiovascular: RRR, S1S2 Pulmonary: CTA bilaterally without rhonchi, rales, expiratory wheezes. No dyspnea Neurological: Alert, answering questions appropriately, cranial nerves intact, no focal findings Extremities: RLE +2 pitting edema, LLE mild erythema within skin pen marking, +2 pitting edema, nontender Skin: Warm, dry. Const: Vital Signs, click to edit/add: Vital Signs - 24 hr 01/27/24 23:05 01/28/24 04:23 01/28/24 04:23 Temperature 97.5 F L 97.7 F Pulse Rate Pulse Rate [Left P ulse Oximeter] 64 Pulse Rate [Pulse Oximeter] 50 L Respiratory Rate 16 16 Blood Pressure [Ri ght Arm] 129/76 Blood Pressure [Ri ght Upper Arm] 116/65 Pulse Oximetry 97 97 98 Oxygen Delivery Me thod Room Air Room Air 01/28/24 04:58 01/28/24 08:00 01/28/24 10:04 Temperature 98 F Pulse Rate 49 L 67 Pulse Rate [Left P ulse Oximeter] Pulse Rate [Pulse Oximeter] 55 L Respiratory Rate 16 Blood Pressure [Ri ght Arm] 177/67 H Blood Pressure [Ri ght Upper Arm] Pulse Oximetry 97 Oxygen Delivery Me thod Room Air 01/28/24 11:00 Temperature 97.5 F L Pulse Rate Pulse Rate [Left P ulse Oximeter] Pulse Rate [Pulse Oximeter] 59 L Respiratory Rate 18 Blood Pressure [Ri ght Arm] 109/63 Blood Pressure [Ri ght Upper Arm] Pulse Oximetry 95 Oxygen Delivery Me thod Room Air Labs Labs: Laboratory Results - last 24 hr 01/28/24 00:24 WBC 4.99 RBC 3.79 L Hgb 11.4 L Hct 35.6 L MCV 94 MCH 30 MCHC 32 RDW Coeff of Jacob 14.2 Plt Count 115 L Neut % (Auto) 66.2 Lymph % (Auto) 22.6 [place] % (Auto) 5.2 Eos % (Auto) 2.8 Baso % (Auto) 0.4 Neut # (Auto) 3.30 Lymph # (Auto) 1.13 [place] # (Auto) 0.30 Eos # (Auto) 0.14 Baso # (Auto) 0.02 Abs Immat Gran (auto) 0.14 Imm/Tot Granulo (auto) 2.8 Sodium 139 Potassium 3.9 Chloride 107 Carbon Dioxide 27 Anion Gap 5 L BUN 23 Creatinine 0.7 Estimated Creat Clear 54.15 Estimated GFR 91 Glucose 92 Calcium 9.0 Magnesium 2.2 C-Reactive Protein 1.2 H NT-Pro-B Natriuret Pep 1160
[2024-01-28] MEDS: CEFEPIME HCL 1 GM in 0.9 % SODIUM CHLORIDE Mini-bag 100 ML IVPB (12:14)
--- NOTE | 2024-01-28 14:20 | PC.NURSE ---
Shift Summary: patient pleasant and cooperative. Up independently. Vitals stable and WNL. denies pain or SOB. Up in halls walking frequently. Good appetite, denies nausea. Cellulitis appears within the margins of previously outlined area. Afebrile throughout shift.
[2024-01-28] MEDS: VANCOMYCIN 1 GM/200 ML 1 GM/200 ML PIGGYBACK IVPB (14:53)
--- NOTE | 2024-01-28 20:27 | P.DS_ITS ---
DS: Providers Provider Date Seen: 01/28/24 Date of admission: 01/28/24 12:06 Primary care physician: Chico Osorio MD Admitting Clinician: Feng Morillo MD Attending Physician on discharge: Feng Morillo MD Date of Discharge: 01/28/24 DS: Diagnosis Discharge Diagnosis (1) Asymmetric edema of both lower extremities: Status: Acute Problem details: Left greater than right in setting of recent LLE cellulitis, fluid overload for hypotensive episodes during previous hospitalization Previous weight 72 kg, 80 kg on discharge 01/24 BNP 1160, creatinine 0.7, echocardiogram 01/22 as below with EF 60-65% (will not repeat today, monitor) Recommend outpatient compression stockings. No clinical evidence of heart failure. (2) EBV infection: Status: Acute Problem details: Splenomegaly noted on recent CT EBV capsid antigen IgG titer, early antigen IgG, nuclear AG Ab IgG all markedly positive, EBV capsid Ag IgM antibody not detected. Suspect splenomegaly is from EBV infection. Avoid strenuous activity and follow-up with primary care provider. (3) Cognitive impairment: Status: Acute Problem details: 01/23/24 MOCA 20/30, with deficits in short-term memory and recall - consider additional outpatient testing (4) Bradycardia: Status: Acute Problem details: Sinus bradycardia. Baseline HR 60 in clinic. Patient reports baseline HR in 50-60s Currently stable, continue to monitor. Echocardiogram 01/22 as below Recommend outpatient follow up with [facility] for Ziopatch (5) Cellulitis: Status: Acute Problem details: Hospitalized from January 21 to January 24 with left lower extremity cellulitis. Treated with vancomycin and cefepime. Clinically improved and discharged to home on Keflex and doxycycline. DS: Summary Hospital Course Hospital Course: 84-year-old male admitted to the hospital from January 21 to January 24 with left lower extremity cellulitis. Treated with vancomycin and cefepime during this hospital stay with improvement in his cellulitis. He had sepsis at that time and required fluid resuscitation followed by norepinephrine. Hypotension resolved, cellulitis improved. Discharged to home on the . Return to the emergency room on the with concerns about bilateral leg swelling. Evaluation for DVT was negative. He had some purpuric changes on his medial left calf but no marked cellulitis. No recurrent fever or leukocytosis or other clinical findings to suggest worsening of the cellulitis. He was treated with antibiotics overnight. Tonight he is requesting to be discharged home. At this point he does not appear to have worsening of his cellulitis. It appears largely to be resolving. Will continue Keflex for a couple more days. I recommend he continue use compression stockings and elevate his legs during the day. I am not going to initiate a diuretic at this point. He has a follow- up appointment in 4 days in clinic and re-evaluation of his edema and cellulitis can be done at that point. Doxycycline will be discontinued as he does not have tick-borne illness. Return to the hospital if getting worse. Time Spent with Patient Time attestation: Total time spent providing and/or coordinating discharge services: 35 minutes Time spent: Greater than 30 minutes Exam Narrative: Exam Narrative: He is alert and appears in no distress. He is a ambulating in the hallway. Examination is leg shows 1-2+ edema on the left and trace edema on the right. On the left he has purpuric changes over the medial calf but otherwise no marked erythema or tenderness. No evidence of abscess. His left foot is without significant erythema. Const: Vital Signs, click to edit/add: Vital Signs - 24 hr 01/27/24 23:05 01/28/24 04:23 01/28/24 04:23 Temperature 97.5 F L 97.7 F Pulse Rate Pulse Rate [Left P ulse Oximeter] 64 Pulse Rate [Pulse Oximeter] 50 L Respiratory Rate 16 16 Blood Pressure [Ri ght Arm] 129/76 Blood Pressure [Ri ght Upper Arm] 116/65 Pulse Oximetry 97 97 [address] [facility] Room Air 01/28/24 04:58 01/28/24 08:00 01/28/24 10:04 Temperature 98 F Pulse Rate 49 L 67 Pulse Rate [Left P ulse Oximeter] Pulse Rate [Pulse Oximeter] 55 L Respiratory Rate 16 Blood Pressure [Ri ght Arm] 177/67 H Blood Pressure [Ri ght Upper Arm] Pulse Oximetry 97 Oxygen Delivery [place] thod Room Air 01/28/24 11:00 01/28/24 15:00 01/28/24 19:00 Temperature 97.5 F L 97.7 F 98.7 F Pulse Rate Pulse Rate [Left P ulse Oximeter] Pulse Rate [Pulse Oximeter] 59 L 63 69 Respiratory Rate 18 16 16 Blood Pressure [Ri ght Arm] 109/63 115/60 126/64 Blood Pressure [[facility] Upper Arm] Pulse Oximetry 95 96 97 Oxygen Delivery Me thod Room Air Room Air Room Air Documenting provider has reviewed patient's vital signs: yes DS: Data Data Completed and Pending Labs on day of discharge: Labs from last 24 hours 01/28/24 00:24 WBC 4.99 RBC 3.79 L Hgb 11.4 L Hct 35.6 L MCV 94 MCH 30 MCHC 32 RDW Coeff of Jacob 14.2 Plt Count 115 L Neut % (Auto) 66.2 Lymph % (Auto) 22.6 [place] % (Auto) 5.2 Eos % (Auto) 2.8 Baso % (Auto) 0.4 Neut # (Auto) 3.30 Lymph # (Auto) 1.13 [place] # (Auto) 0.30 Eos # (Auto) 0.14 Baso # (Auto) 0.02 Abs Immat Gran (auto) 0.14 Imm/Tot Granulo (auto) 2.8 Sodium 139 Potassium 3.9 Chloride 107 Carbon Dioxide 27 Anion Gap 5 L BUN 23 Creatinine 0.7 Estimated Creat Clear 54.15 Estimated GFR 91 Glucose 92 Calcium 9.0 Magnesium 2.2 C-Reactive Protein 1.2 H NT-Pro-B Natriuret Pep 1160 Discharge Plan Discharge Disposition: Home, Self-Care Date of Admission: 01/28/24 12:06 Attending Provider on Discharge: Jalil La Primary Care Provider: Chico Osorio Condition: Improved Anticipated Discharge Date/Time: 01/28/24 20:25 Discharge Medications: Continued aspirin 81 mg tablet,delayed release (DR/EC) 81 mg PO DAILY pravastatin 10 mg tablet 10 mg PO HS ipratropium bromide 42 mcg (0.06 %) spray,non-aerosol 2 spray INTRANASAL HS PRN magnesium 250 mg tablet 250 mg PO DAILY cyanocobalamin (vitamin B-12) 1,000 mcg lozenge 1,000 mcg sublingual DAILY ascorbic acid (vitamin C) 1,000 mg tablet 1 g PO DAILY cholecalciferol (vitamin D3) 50 mcg (2,000 unit) capsule 50 mcg PO DAILY cephalexin 500 mg Capsule 500 mg PO TID 5 Days Qty: 15 0RF trazodone 50 mg tablet 25 - 50 mg PO QPM PRN (Reason: insomnia) fluticasone propionate 50 mcg/actuation spray,suspension 2 spray INTRANASAL DAILY Discontinued doxycycline hyclate 100 mg Tablet 100 mg PO BID 10 Days Qty: 20 0RF Discharge Orders: Discharge Order (Routine); Ordered 01/28/24 Ordered By: Jalil La Additional Instructions: Wear compression stockings when you are up during the day. You may remove them when your sitting with your legs elevated or in bed with your legs elevated Activity Level: No Restrictions Discharge Diet: Regular Follow Up Appointments: Chico Osorio MD [Primary Care Provider] - (Appointment already scheduled for SundayJanuary 31) Forms: [facility] Info Instructions
--- NOTE | 2024-01-28 22:00 | PC.NURSE ---
The patient was eager to leave and was wondering about discharge this evening upon my initial assessment. Dr La went in and determined that it was ok for the patient to be discharged. All paperwork was reviewed with the patient. Iv was taken out. The patient took a taxi home that was organized by [facility]. Vee ARREOLA BSN
== END 2024-01-28 21:00 | disposition home or self-care (01) | DRG 948 ==
LOC: ED 01-28 02:18 → MEDSURG 01-28 03:33
PROVIDERS: Admitting Provider Student in an Organized Health Care Education/Training Program; Emergency Provider Family Medicine; PCP Surgery; Visit Provider Student in an Organized Health Care Education/Training Program
DX: R60.0 Localized edema (principal); L03.116 Cellulitis of left lower limb; Z79.82 Long term (current) use of aspirin; I25.10 Atherosclerotic heart disease of native coronary artery without angina pectoris; E87.6 Hypokalemia; I71.21 Aneurysm of the ascending aorta, without rupture; G47.00 Insomnia, unspecified; I95.9 Hypotension, unspecified; R00.1 Bradycardia, unspecified; D69.6 Thrombocytopenia, unspecified; Z87.39 Personal history of other diseases of the musculoskeletal system and connective tissue; G31.84 Mild cognitive impairment of uncertain or unknown etiology; B27.00 Gammaherpesviral mononucleosis without complication
CPT/HCPCS: 36415; 80048; 83735; 83880; 85025; 86140; 93971; 99284; 99285; G0378; A9270; J0692; J0696; J1940; J3372

== ENCOUNTER 2024-09-22 18:32 | Emergency (ER) | payer MEDICARE, BC, SELFPAY ==
[2024-09-22] VITALS (15 sets, daily range): BP systolic 116–133; BP diastolic 61–87; PULSE 69–80; RESP 13–22; TEMP 36.5–36.8; O2SAT 95–99; BMI 23.5
--- OUTSIDE RECORDS SUMMARY | 2024-09-22 18:35 | XMS_ITS | Clinical Summary ---
Author Organization [employer] [facility] Address [address] [place] [id number] Care Team Providers Care Inspector Semiconductor Wafer Name Role Phone Jaylon Davalos Mike CONTRERAS Unavailable Unavaila Bonita Hall NP Unavailable Estevan Courtney PsyD Unavailable Roberto Raza MD Unavailable [phone] Chico Osorio MD Primary Care Provider [phone] Allergies Active Allergy Reactions Criticality Noted Date Comments Amoxicillin Rash 07/07/2006 Atorvastatin Headache 09/28/2022 Dust Mites Other - Describe In Comment Field 05/19/2014 Runny nose, itchy eyes, etc Penicillin V Rash High 06/02/2020 Unlisted Allergen (Include Detail In Comments) Other - Describe In Comment Field 05/19/2014 Pollens - Runny nose, itchy eyes, etc Medications magnesium 250 mg Tab Take 1 tablet by mouth once daily. 0 3 Active Cholecalciferol, Vitamin D3, (VITAMIN D-3) 2,000 unit tablet Take 1 tablet by mouth once daily. 0 6 Active cyanocobalamin (VITAMIN B-12) 1,[address] under the tongue once daily. 0 6 Active ascorbic acid, vitamin C, (VITAMIN C) 1,000 mg tablet Take 1 tablet by mouth once daily. 0 8 Active aspirin chewable 81 mg chewable tablet Chew 1 Tablet (81 mg) by mouth once daily with a meal. 0 2 Active ipratropium (ATROVENT NASAL) 42 mcg (0.06 %) nasal sprayIndications:V asomotor rhinitis Inhale 2 Sprays into affected nostril(s) three times daily. 15 mL 11 4 Active pravastatin (PRAVACHOL) 10 mg tabletIndications: Hyperlipidemia, unspecified hyperlipidemia type Take 2 Tablets (20 mg) by mouth at bedtime. 4 Active traZODone (DESYREL) 50 mg tabletIndications: Insomnia, idiopathic 0.5-1 oral at bedtime as needed for sleep. 20 Tablet 4 025 Discontin ued(*Med complete/ Regimen complete/ Level of care change) Active Problems Problem Noted Date Diagnosed Date Ascending aortic aneurysm 04/08/2024 Overview (04/08/2024): - Possibly 5cm on ECHO 01/23/24, but will need further outpatient imaging as it was not well visualized on ECHO. Repeat echo scheduled in 6 months per cardiology. Splenomegaly 04/08/2024 Overview (04/08/2024): CT notes moderate splenomegaly EBV ordered CT August 2020 shows mild splenomegaly 01/23/24: D/Dx: hematologic malignancy, autoimmune cytopenia, extramedullary hematopoiesis, infection, infiltrative disorders. Monitor for now as await EBV studies. 01/24: EBV capsid antigen IgG titer, early antigen IgG, nuclear AG Ab IgG all markedly positive, EBV capsid Ag IgM antibody not detected. Suspect splenomegaly is from EBV infection. Avoid strenuous activity and follow-up with primary care provider. Insomnia, idiopathic 08/18/2023 Thrombocytopenia 05/02/2023 Overview (04/08/2024): Chronic, baseline 118-139, 115 on admission Followed by [facility] does not believe this is related to previous methotrexate as he has been off of it for some time 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 Continue to monitor while on IV antibiotics and enoxaparin ASHD (arteriosclerotic heart disease) 08/25/2022 Overview (04/08/2024): Followed by [facility], last visit 07/25/2023, Known presumed nonobstructive coronary artery disease based on coronary atherosclerosis/calcification identified on CT (and status post reassuring stress echoes in the past). He is asymptomatic with no ischemic complaints and no functional limitations. Hyperlipidemia is well addressed with statins. Occasional ectopy, PACs Continue aspirin 81 mg daily Cardiology recommending echo/Holter monitor in the future, postponing approximately 2 years as he has been asymptomatic (previous echo 2012 and 2014) Echocardiogram 01/23/2024: Normal LV size, normal wall thickness, normal global systolic function with EF 60-65%, right ventricular cavity size is normal, global systolic RV function is normal, no stenosis and moderate regurgitation, [id number] tricuspid regurgitation, mildly enlarged left atrium, 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, 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 Subjective tinnitus, right 03/02/2021 Status post right knee replacement 02/21/2021 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 Baseline HR 60 in clinic. Patient reports baseline HR in 50- 60s Currently stable, continue to monitor. Echocardiogram 01/22 as below Recommend outpatient follow up with [facility] for Ziop[place] Asymmetric edema of both lower extremities 04/08/2024 04/08/2024 Overview (04/08/2024): Left greater than right in setting of recent LLE cellulitis, fluid overload for hypotensive episodes during previous hospitalization Previous weight 72 kg, 80 kg on discharge 01/24 BNP 1160, creatinine 0.7, echocardiogram 01/22 as below with EF 60-65% (will not repeat today, monitor) Recommend outpatient compression stockings. No clinical evidence of heart failure. Cellulitis 04/08/2024 04/08/2024 Overview (04/08/2024): Hospitalized from January 21 to January 24 with left lower extremity cellulitis. Treated with vancomycin and cefepime. Clinically improved and discharged to home on Keflex and doxycycline. Cognitive impairment 04/08/2024 024 Overview (04/08/2024): 01/23/24 MOCA 20/30, with deficits in short-term memory and recall - consider additional outpatient testing Diverticulosis 04/08/2024 04/08/2024 Overview (04/08/2024): CT shows colonic diverticulosis without CT evidence of acute diverticulitis EBV infection 04/08/2024 04/08/2024 Overview (04/08/2024): Splenomegaly noted on recent CT EBV capsid antigen IgG titer, early antigen IgG, nuclear AG Ab IgG all markedly positive, EBV capsid Ag IgM antibody not detected. Suspect splenomegaly is from EBV infection. Avoid strenuous activity and follow-up with primary care provider. Hiatal hernia 04/08/2024 04/08/2024 Overview (04/08/2024): CT shows small hiatal hernia History of polymyalgia rheumatica 04/08/2024 04/08/2024 Overview (04/08/2024): Previously on methotrexate (last dose probably around August 2023 when reviewing EMR). No recent steroid therapy since 2019, when weaned off. Followed by [facility], last visit 11/13/2023, plan to remain off of immunosuppression. Treated with stress dose steroids 01/22-01/23 given persistent hypotension during last hospitalization Hypokalemia 04/08/2024 04/08/2024 Overview (04/08/2024): - Mild, asymptomatic. Gave oral replacement before discharge. Recheck in clinic. 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 04/08/2024 Edema of lower extremity 02/21/202108/2021 Temporomandibular joint disorder 12/25/2018 04/03/2022 Left groin pain 09/11/2018 04/03/2022 Abnormal result of other car diovascular function study 03/26/2018 04/03/2022 Insomnia 06/30/2016 04/08/2024 Pressure in head 08/19/2015 05/21/2017 Facet arthritis of lumbar region 10/23/2014 04/03/2022 Impingement syndrome of right shoulder 10/14/2013 04/08/2024 Counseling on health promoti on and disease [...] Encounters Date Type Department Care Team Description 09/22/2024 Nurse Triage [facility] [address] [place] [address] Chico Osorio MD Shoulder Pain/problem 09/11/2024 10:50 AM CDT Office Visit [facility] [address] [place] [address] Vahe Corrales MD Nose Problem (Runny nose, mucous in throat-discuss antihistamines); Medication Management (Sleep medication) 09/11/2024 Travel 08/26/2024 Telephone [facility] [address] [place] [address] Chico Osorio MD Questions (Mason Tender. ) 07/15/2024 Telephone [facility] [address] [place] [address] Chico Osorio MD Questions (COVID-19 Vaccines.) from Last 3 Months Immunizations Immunization Administration Dates Next Due AMB Influenza, IIV3 (Age >=3 years)(Flu Clinic Only) 02/24/2008 COVID-19 vaccine (Pfizer-Bio NTech 30mcg/0.3mL) 12YO+ GERALD-SUCROSE CHANCE MDShannon 07/26/2021 COVID-19 vaccine ([employer]-Bio NTech 30mcg/0.3mL) PF MDV 02/28/2021,06/22/2020,06/01/2020 Hepatitis A (Adult) 04/24/2007,04/13/2006 Inactivated Polio Vaccine 04/13/2006 Influenza A (H1N1), Inactivated 04/21/2009 Influenza A (H1N1), Inactiva isai (Age >=3 Years) 04/21/2009 Influenza Virus, Unspecified 02/28/2021,02/29/20 18 Influenza, High-dose Inactivated 024,01/19/2017,12/30/2015,01/08 Influenza, High-dose Quadriv alent Inactivated 02/19/2023 Influenza, [...] Free (age >= 7 Years) 0 Tdap 04/12/2024,03/25/2014 Typhoid (injectable) 04/27/2010,04/13/2006 Zoster (Shingrix-RZV, recombinant) 08/14,07/14/2018,06/04/2018,05/22 Zoster (Zostavax-ZVL, live) 06/15/2008 Family History Medical History Relation Name Comments Heart Disease Father [place] age 69, Cancer-prostate Maternal Grandfather Cancer-colon Maternal [...] Answer Date Recorded PHQ-2 TOTAL SCORE 0 04/08/2024 Social Connections Answer Date Recorded Do you often feel lonely or isolated from those around you? 0 01/30/2024 Financial Resource Strain Answer Date R ecorded Difficulty of Paying Living Expenses 3 01/30/2024 Difficulty of Paying Living Expenses Not on file 01/30/2024 Food Insecurity Answer Date Recorded Do you worry your food will run out before you are able to buy more? 1 01/30/2024 Transportation Needs Answer Date Record ed Does lack of transportation keep you from medica l appointments? 1 01/30/2024 Does lack of transportation keep you from work, meetings or getting things that you need? 1 01/30/2024 Housing Stability Answer Date Recorded What is your housing situation today? 1 01/30/2024 Interpersonal Safety Answer Date Record ed Are you being hit, kicked, p ushed or yelled at (see row info)? No 04/02/2024 Interpersonal Safety Abuse 12 - 18 Not on file 04/02/2024 Interpersonal Safety Ambulatory Vulnerability No t on file 04/02/2024 Utilities Answer Date Recorded Do you have trouble paying f or utilities (for example, heat, electricity, water, phone)? 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 Not on file Not on file Not on file Not on file Not on file Not on file Obstetrics History Last Filed Vital Signs Vital Sign Reading Time Taken Comments Blood Pressure 129/74 09/11/2024 10:56 AM CDT Pulse 56 09/11/2024 10:56 AM CDT Temperature 36.4 C (97.6 F) 09/11/2024 10:56 AM CDT Respiratory Rate 16 04/02/2024 4:58 PM STICKER ON Oxygen Saturation 95% 09/11/2024 10:56 AM CDT Inhaled Oxygen Concentration - - Weight 74.8 kg (165 lb) 09/11/2024 10:56 AM CDT Height 176.5 cm (5' 9.49) 04/08/2024 4:16 PM CS T Body Mass Index 24.03 04/08/2024 4:16 PM STICKER ON Plan of Treatment Health Maintenance Due Date Last Done Comments BMI (ht and wt on same day) for age 18+ 04/08/2025 04/08/2024, 05/09/2023, 04/05/2023, Additional history exists Depression screening for age 12+ 04/08/2025 04/08/2024, 04/05/2023, 04/05/2023, Additional history exists Medicare Wellness for age 65+ 04/09/2025 04/08/2024, 04/05/2023, 04/03/2022, Additional history exists Tetanus booster 04/12/2034 04/12/2024, 03/01, 03/04/2010, Additional history exists Pneumococcal series for age 50+ Completed 05/29/2017, 05/11/2015, 03/19/2006 Zoster (shingles) series for age 50+ Completed 08/14/2018, 07/14/2018, 06/04/2018, Additional history exists RSV vaccine for adults or Completed 02/27/2023 Influenza Vaccine Completed 01/08/2024, , 02/28/2021, Additional history exists Tdap Completed 04/12/2024, 03/25/2014 COVID-19 vaccine series Completed 07/19/19, 12/24/2023, 02/09/2023, Additional history exists Hepatitis B series for 19+ Aged Out N o longer eligible based on patient's age to complete this topic Medical Devices Implanted Type Area Marine Extension Agent Device Identifier Shelf Expiration Date Model / Serial / Lot Mesh Marlex [id number] - [id number] Implanted:Qty: 1 on 12/25/[address] 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 Expl anation Healthcare Directive 09/10/2008 * Full Code (Latest Code Status on File) Date Activated Date Inactivated Comments 05/23/2007 7:13 AM 05/23/2007 2:50 PM Care Teams Inspector Semiconductor Wafer Relationship Specialty Start Date End Date Ch[place] [address] PCP - General Family Practice 05/30/19 Jaylon Davalos, FREELANCE OPERATOR Bilingual Student Tutor 04/20/16 Bonita Alanis NP [address] [place] [address] Cardiovascular Disease 04/20/16 Estevan Courtney PsyD [address] [place] [address] Pulmonary Medicine 04/21/16 Roberto Raza MD [address] [facility] [address] [place] [address] Rheumatology Rheumatology 06/21/17
--- OUTSIDE RECORDS SUMMARY | 2024-09-22 18:35 | XMS_ITS | Data Portability ---
Author Organization [place] [facility] Address [address] [place] [address] Care Team Providers Care Road Mechanic Name Role Phone KATHRYN DIAZ Referring Provider Assessment Encounter Date Assessment Date Assessment LastModified by Organization Details LastModified Time 07/28/2021 07/28/2021 Patient was seen today for follow-up and insertion of a maxillary stabilization intraoral appliance. Diagnosis and contributing factors were reviewed. Questions were answered. Self-management and home exercise techniques were reviewed. Today the intraoral appliance was fit to patient comfort. Specifically, adjustments were made to balance appliance occlusion. Instructions on proper use and care were discussed/reviewe d both written and verbally. Potential side effects were reviewed. The patient was advised to discontinue oral appliance use should they experience untoward side effects or be unable to return for follow-up care. The patient was advised to return in 3-4 weeks to reassess their progress and continue their treatment plan as previously outlined. In addition to oral appliance insertion today we review home self-care strategies as previously discussed. We discussed additional treatment options including rehabilitative treatment with physical therapy. History today was obtained from the patient. The patient has 4 diagnoses they would like to address. This case is moderate complexity because of multiple diagnoses and acute nature. Data reviewed included: previous imaging. Risk of complications including disease progression were discussed. Today time spent may have included a review of past records, history taking, review of diagnoses, contributing factors, treatment plan, diagnostic testing, prognosis, expectations, risks and complications of treatment/no treatment, discussions with other providers and completing documentation was 25 minutes. I've suggested that the patient return for follow-up care in 2-4 weeks. Not available 07/28/2021 16:45:53 08/30/2021 08/30/2021 Today I reviewed the diagnosis, contributing factors and treatment options. I reviewed and reinforced continued use of self care and home exercises. I've encouraged daily home care use which may consist of heat and ice compresses, oral habit reduction and relaxation techniques. The intraoral appliance was adjusted to patient comfort and balanced. I advised Pranay to monitor the loose feeling in the right side of his jaw and to evaluate for improvements with physical therapy. History today was obtained from the patient. The patient has 5+ diagnoses they would like to address. Their symptoms are improving. This case is moderate complexity because of multiple diagnoses with chronic symptoms. Data reviewed included: previous imaging. Risk of complications including disease progression were discussed. Today time spent may have included a review of past records, history taking, review of diagnoses, contributing factors, treatment plan, diagnostic testing, prognosis, expectations, risks and complications of treatment/no treatment, discussions with other providers and completing documentation was 25 minutes. I've suggested that the patient return for follow-up care in 6 months. Not available 08/30/2021 20:42:12 01/12/2022 01/12/2022 Today I reviewed the diagnosis, contributing factors and treatment options. I reviewed and reinforced continued use of self care and home exercises. I encouraged daily home care use which may consist of heat and ice compresses, oral habit reduction and relaxation techniques. The intraoral appliance was adjusted to patient comfort and balanced. History today was obtained from the patient. The patient has 5+ diagnoses which we are addressing. Their symptoms are stable. This case is moderate complexity because of multiple diagnoses with chronic symptoms. Risk of complications include disease/symptom progression were discussed. Today time spent may have included a review of past records, history taking, review of diagnoses, contributing factors, treatment plan, diagnostic testing, prognosis, expectations, risks and complications of treatment/no treatment, discussions with other providers and completing documentation was 25 minutes. I suggested that (s)he return for follow-up care annually or PRN sooner. Not available 01/14/2022 14:01:37 07/25/2022 07/25/2022 Today I reviewed the diagnosis, contributing factors and treatment options. I reviewed and reinforced continued use of self care and home exercises. I encouraged daily home care use which may consist of heat and ice compresses, oral habit reduction and relaxation techniques. The intraoral appliance did not require additional adjustment. Today I taught simple jaw exercises designed to improve the jaw mechanics and movement, improve range of mouth opening and improve TM joint fluid circulation to facilitate healing. This includes simple jaw stretch. This was both demonstrated and given in written format. Concurrently I taught proper posture.. I also recommended the use of Voltaren gel as needed on the jaw joint in pea size amount as needed up to 4 times a day. History today was obtained from the patient. The patient has 4 diagnoses which we are addressing. Their symptoms are stable. This case is moderate complexity because of multiple diagnoses with chronic symptoms. Data reviewed included no records were available today. Discussion with treatment team members after visit was necessary. Risk of complications include disease/symptom progression were discussed. Today time spent may have included a review of past records, history taking, review of diagnoses, contributing factors, treatment plan, diagnostic testing, prognosis, expectations, risks and complications of treatment/no treatment, discussions with other providers and completing documentation was 30 minutes. I suggested that (s)he return for follow-up care in 2-3 months to check for jaw stability. Not available 07/31/2022 14:29:38 10/26/2022 10/26/2022 Today I reviewed the diagnosis, contributing factors and treatment options. I reviewed and reinforced continued use of self care and home exercises. I encouraged daily home care use which may consist of heat and ice compresses, oral habit reduction and relaxation techniques. The intraoral appliance was adjusted to patient comfort. His symtpoms are resolved and he has no restrictions with eating and chewing food. - Daily swimmer - naps during the day - working to improve bladder capacity with his PCP. Discussed: -bilateral chewing and awareness of not clenching teeth during the day. History today was obtained from the patient. The patient has 4 diagnoses which we are addressing. Their symptoms are significantly improved. This case is moderate complexity because of limited diagnoses and chronic nature. Data reviewed included no records were available today. Discussion with treatment team members after visit was necessary. Risk of complications include disease/symptom progression were discussed. Today time spent may have included a review of past records, history taking, review of diagnoses, contributing factors, treatment plan, diagnostic testing, prognosis, expectations, risks and complications of treatment/no treatment, discussions with other providers and completing documentation was 25 minutes. I suggested that (s)he return for follow-up care in annually or PRN sooner. Not available 10/26/2022 12:57:15 Plan of Treatment Reminders Order Date Submit Date Provider Last Modified By Organization Details Last Modified Time Details Appointments None recorded. Lab None recorded. Referral physical therapist referral 2021 022 ATHENAFAX Not available 16:55:55 Procedures None recorded. Surgeries None recorded. Imaging None recorded. Medication Orders None recorded. Patient TargetsNo targets recorded. Patient Instructions Encounter Date Encounter Id Patient Instructions Last Modified By Organization Details Last Modified Time 07/25/2022 [id number] Three Jaw Exercises Not available 07/31/2022 14:31:02 Reason for Referral Physical Therapist Referral for Myofascial pain right tmj djd, masticatory/cervical myofascial pain Referring Physician: Brenda Gray, Pain Management, Encounter Date: 07/28/2021 Results Created Date Observation Date Name Description Value Unit Range Abnormal Flag Note LastModifiedBy Organization Detail LastModifiedTime 07/08/1907/07/2021 oral appli ance prepa ratio n* Type of appliance maxill silverio stabil izatio n applia nce Not Available [place] [address] [facility] [address], [place], [address], 07/07/2021 11:38:35 Result Notes None recorded. 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 V[facility] Walker [facility] 9 12:11:01 Pain of temporom andibula r joint 88882993 Active 2018 Right TMJ VANCE Walker [facility] 9 12:11:14 Myofasci al pain 375041215 Active 2018 masticato ry Brenda Frances yusuf [facility] 9 12:11:42 Temporom andibula r joint crepitus 972067204 Active 2021 Brenda Frances yusuf [facility] 2 11:38:21 Referred otalgia 08374136 Active 2022 Resolved ROSA LOPEZ BDS, [place] [address], [place], [address], [facility] 3 12:44:55 Problem Notes None recorded. Procedures Surgical History Date Name Laterality Status Provider Name and Address Organization Details Recorded Time 07/29/19 22 Oral appliance completed Rachel Salvador [facility] 07/28/2021 16:13:27 12/26/19 19 Orthopantogram completed Brenda Gray [facility] 12/25/2018 12:10:05 Prostatectomy (turp) completed [facility] 12/25/2018 10:54:41 Hernia repair w/mesh completed [facility] 12/25/2018 10:54:48 Knee arthroscopy/surger y completed [facility] 12/25/2018 10:54:56 Xcapsl ctrc rmvl cplx wo ecp completed [facility] 12/25/2018 10:55:15 Shoulder Surgery completed Huan Diallo [facility] 07/06/2021 15:51:13 Hip arthroscopy dx completed Huan Diallo [facility] 07/06/2021 15:51:22 Knee arthroscopy/surger y completed [facility] 07/06/2021 15:51:31 Hip arthroscopy dx completed [facility] 07/06/2021 15:51:45 Imaging Results None recorded. Procedure Notes None recorded. Medical Equipment None Reported. Allergies Allergen ID Allergen Name Allergen Category Reaction Reaction Severity Criticality Documentation Date Start Date Code Code System Note Provider Name and Address Organization Details Recorded Time 50338 amoxicill in medicatio n Not available Not available Not available 12/25/2018 723 RxNorm Huan yusuf [facility] 9 10:48:38 71461 house dust mite environme nt Not available Not available Not available 12/25/2018 59807 UNK Huan yusuf [facility] 9 10:48:56 Medications Name Sig Start Date Stop Date Status Note LastModified by Organization Details LastModified Time tolterodine ER 2 mg capsule,ext ended release 24 hr TAKE 1 CAPSULE BY MOUTH EVERY DAY 07/06 completed Not Available Not Available Not Available atorvastati n 20 mg tablet TAKE 1 TABLET BY MOUTH EVERY DAY active Not Available Not Available No t Available ketoconazol e 2 % shampoo PLEASE SEE ATTACHED FOR DETAILED DIRECTION S 07/25 completed Not Available Not Available Not Available trazodone 50 mg tablet TAKE 0.5-1 TABLETS (25-50 MG) BY MOUTH AT BEDTIME IF NEEDED FOR SLEEP. 07/25 completed Not Available Not Available Not Available betamethaso ne, augmented 0.05 % topical cream APPLY TO AFFECTED AREA OF FEET TWICE A DAY FOR UP TO 2 WEEKS AT A TIME NEEDED FOR FLARES 07/06 completed Not Available Not Available Not Available prednisone 5 mg tablet 12/25 completed Not Available Not Available Not Available methylpredn isolone 4 mg tablet TAKE 5 TABLETS DAILY X 3 DAYS, THEN REDUCE BY 1 TAB EVERY 3 DAYS UNTIL OFF. 07/06 completed Not Available Not Available Not Available ciprofloxac in 500 mg tablet 12/25 completed Not Available Not Available Not Available acetaminoph en 500 mg tablet TAKE 1 TO 2 TABS BY MOUTH EVERY 6 HOURS NEEDED. MAX 4000MG PER DAY 07/06 completed Not Available Not Available Not Available sildenafil 100 mg tablet 07/06 completed Not Available Not Available Not Available triamcinolo ne acetonide 0.1 % topical cream APPLY TO AFFECTED AREAS ON BODY 1-2X DAILY FOR 2 WEEKS, THEN NEEDED FOR FLARES. 07/25 completed Not Available Not Available Not Available ciclopirox 8 % topical solution PLEASE SEE ATTACHED FOR DETAILED DIRECTION S 07/25 completed Not Available Not Available Not Available prednisolon e acetate 1 % eye drops,suspe nsion 12/25 completed Not Available Not Available Not Available lorazepam 0.5 mg tablet 12/25 completed Not Available Not Available Not Available methotrexat e sodium 2.5 mg tablet TAKE 4 TABLETS (10 MG TOTAL) BY MOUTH ONCE A WEEK active Not Available Not Available No t Available prednisone 1 mg tablet 12/25 completed Not Available Not Available Not Available cephalexin 500 mg capsule TAKE 4 CAPSULES 1 HOUR PRIOR TO DENTAL APPOINTME NT. active Not Available Not Available No t Available erythromyci n 5 mg/gram (0.5 %) eye ointment APPLY 1 CM RIBBON TO LOWER CONJUNCTI JADYN SAC(S) IN AFFECTED EYE(S) 3 TIMES PER DAY FOR 7-10 DAYS 07/25 completed Not Available Not Available Not Available brimonidine 0.2 % eye drops INSTILL 1 DROP TO SURGICAL EYE 2 TIMES PER DAY FOR 7 DAYS 07/06 completed Not Available Not Available Not Available triamcinolo ne acetonide 0.025 % topical ointment APPLY TO AFFECTED AREA TWICE A DAY 07/06 completed Not Available Not Available Not Available aspirin 81 mg chewable tablet TAKE 1 TABLET BY MOUTH TWICE A DAY 07/06 completed Not Available Not Available Not Available folic acid 1 mg tablet TAKE 3 TABLETS (3,000 MCG TOTAL) BY MOUTH DAILY. active Not Available Not Available No t Available hydrocortis one 2.5 % topical cream APPLY TO ITCHY AREAS ON FACE 1-2X DAILY FOR 2 WEEKS , TAKE 2 WEEK BREAK THEN REPEAT NEEDED 07/06 completed Not Available Not Available Not Available ammonium lactate 12 % topical cream APPLY TO AFFECTED AREAS ON BODY ONCE TO TWICE DAILY. 07/06 completed Not Available Not Available Not Available mupirocin 2 % topical ointment 12/25 completed Not Available Not Available Not Available zolpidem 5 mg tablet TAKE 1 TABLET (5 MG) BY MOUTH AT BEDTIME IF NEEDED FOR SLEEP. 07/25 completed Not Available Not Available Not Available azelastine 137 mcg (0.1 %) nasal spray INHALE 1 SPRAY INTO AFFECTED NOSTRIL(S ) TWO TIMES DAILY. active Not Available Not Available No t Available methylpredn isolone 4 mg tablets in a dose pack TAKE 6 TABLETS ON DAY 1 DIRECTED ON PACKAGE AND DECREASE BY 1 TAB EACH DAY FOR A TOTAL OF 6 DAYS 07/06 completed Not Available Not Available Not Available celecoxib 100 mg capsule 07/06 completed Not Available Not Available Not Available hydrocortis one 2.5 % topical ointment APPLY TO ITCHY AREAS ON FACE 2X DAILY FOR UP TO 2 WEEKS. TAKE 2 WEEK BREAK REPEAT NEEDED 07/25 completed Not Available Not Available Not Available clobetasol 0.05 % scalp solution PLEASE SEE ATTACHED FOR DETAILED DIRECTION S 07/25 completed Not Available Not Available Not Available cefdinir 300 mg capsule TAKE 2 CAPSULES (600 MG) BY MOUTH EVERY 24 HOURS FOR 5 DAYS. 07/06 completed Not Available Not Available Not Available fluticasone propionate 50 mcg/actuati on nasal spray,suspe nsion INSTILL 2 SPRAYS TO BOTH NOSTRILS ONCE DAILY. 07/25 completed Not Available Not Available Not Available rosuvastati n 5 mg tablet TAKE 1 TABLET BY MOUTH AT BEDTIME 07/25 completed Not Available Not Available Not Available tadalafil 10 mg tablet TAKE 1/2 TO 1 (ONE-HALF TO ONE) TABLET BY MOUTH ONCE DAILY NEEDED FOR ERECTILE DYSFUNCTI ON - TAKE 30 MINUTES BEFORE SEXUAL ACTIVITY active Not Available Not Available No t Available trospium 20 mg tablet TAKE 1 TABLET (20 MG) BY MOUTH 2 TIMES DAILY BEFORE MEALS. 07/06 completed Not Available Not Available Not Available trospium ER 60 mg capsule,ext ended release 24 hr TAKE ONE CAPSULE BY MOUTH EVERY DAY IN THE MORNING BEFORE BREAKFAST active Not Available Not Available No t Available Xarelto 10 mg tablet TAKE 1 TAB DAILY. TAKE THIS MEDICATIO N DAILY FOR 4 DAYS, THEN ASPIRIN 81 MG TWICE DAILY 30 DAYS 07/06 completed Not Available Not Available Not Available Myrbetriq 50 mg tablet,exte nded release TAKE 1 TABLET BY MOUTH EVERY DAY 10/26 completed Not Available Not Available Not Available Shingrix (PF) 50 mcg/0.5 mL intramuscul ar suspension, kit 12/25 completed Not Available Not Available Not Available Vitals Date Recorded Body height Body mass index (BMI) Body weight Heart rate Systolic And Diastolic Provider Name and Address Organization Details Last Updated DateTime 07/25/2022 175.26 cm 23 kg/m2 56536.41 g 50 /min 120/49 mm[Hg] Rachel Lelareginaldo [facility] 12:35:15 Date Recorded Body temperature Heart rate Systolic And Diastolic Provider Name and Address Organization Details Last Updated DateTime 07/28/2021 97 [degF] 62 /min 92/64 mm[Hg] Rachel Salvador [facility] 07/28/2021 16:10:54 Date Recorded Body height Body temperature Heart rate Systolic And Diastolic Provider Name and Address Organization Details Last Updated DateTime 08/30/2021 175.26 cm 97.2 [degF] 65 /min 92/66 mm[Hg] Rachel Salvador [facility] 08/30/2021 16:11:39 Date Recorded Body height Heart rate Systolic And Diastolic Provider Name and Address Organization Details Last Updated DateTime 10/26/2022 175.26 cm 56 /min 101/60 mm[Hg] Huan Diallo [facility] 10/26/2022 12:35:46 Date Recorded Body height Heart rate Systolic And Diastolic Provider Name and Address Organization Details Last Updated DateTime 01/12/2022 175.26 cm 65 /min 100/65 mm[Hg] Ibeth Bañuelos [facility] 01/12/2022 15:36:09 Social History Question Answer Notes LastModified by Organizat ion Details LastModified Time Tobacco Smoking Status Never Smoker Huan yusuf [facility] 12/25/2018 10:53:20 Auto Related Injury? No Information not available 12/25/2018 What Is Your Level Of Caffeine Consumption? Occasional Information not available 12/25/2018 Currently No Information not available 12/25/2018 What Type Of Diet Are You Following? VEGAN Information not available 12/25/2018 Education Post Graduate Information not available 12/25/2018 Live Alone Or With Others? Alone Information not available 12/25/2018 Marital Status Informatio n not available 12/25/2018 If Injured, Is Litigation Ongoing? No Information not available 12/25/2018 General Stress Level Low Information not available 12/25/2018 Work Related Injury? No Information not available 12/25/2018 Sex: Unknown Functional Status Question Answer Note LastModified by Organization D etails LastModified Time What is your level of alcohol consumption? None Information not available 12/25/2018 Are you currently employed? No Information not available 07/06/2021 What is your exercise level? Moderate Information not available 12/25/2018 Mental Status None recorded. Family History Relationship Description Onset Age of this Age Resolved Age Notes LastModified by Organization Details LastModified Time Father No current problems or disability Not available 11/29 10:53:11 Mother No current problems or disability Not available 11/29 10:53:11 Medical History Condition Response Coronary Artery Disease N Gout N Other Y Chronic fatigue syndrome N Hyperthyroidism N Premenstrual syndrome (PMS) N MRSA N Emphysema N Head Trauma/Injury N Irritable bowel syndrome N Glaucoma N Lung Disease N COPD N Depression N Hypothyroidism N Pneumonia N Pacemaker N Obstructive Sleep Apnea N Anxiety Disorder N Autoimmune disease N Muscle, Joint, or Bone Problems Y Vision or Eye Problems N Arthritis N Serious Illness or Injuries N Acid Reflux (GERD) N Cancer N Stroke N Eating disorder N Neck Injury Y Back Injury N High Cholesterol N History of chemotherapy N Neurologic Disorder N Liver Disease N Organ Transplant N Rheumatoid Arthritis N Headaches N Fibromyalgia N Kidney Disease N Allergies/Hayfever N Post traumatic stress disorder (PTSD) N Parkinson's Disease N Migraines N Brain Tumors N Anemia N Multiple Sclerosis N Immune System Disorder Y Meningitis N Pancreatic disease N Heart Attack (SD) N Stomach Ulcers N Back pain N Diabetes N Bleeding Disorder N Seizures/Epilepsy N Sjogren's syndrome N Mental Health Concerns N Tuberculosis N AIDS/HIV N History of radiation therapy N Hyperlipidemia N Dementia N Asthma N Physical or sexual abuse N Substance Abuse N Peripheral Vascular Disease N Psoriasis N Reflux/GERD N Vertigo N Sleep Disorder N Aneurysm N Hepatitis N Heart Disease N Neuropathy N Pulmonary Embolism N Hypertension N Osteoporosis N Immunizations Vaccine Type Date Status Note Provider Nam e and Address Organization Details Recorded Time Influenza, split virus, quadrivalent, preservative 8 completed [facility] 12/25/2018 10:52:31 Influenza, split virus, quadrivalent, preservative 1 completed [facility] 07/06/2021 15:50:18 SARS-COV-2 (COVID-19) vaccine, UNSPECIFIED 1 completed [facility] 07/06/2021 15:50:29 Past Encounters Encounter ID Performer Location Encounter Start Date Encounter Closed Date Diagnosis/Indication Diagnosis SNOMED-CT Code Diagnosis ICD10 Code Diagnosis Note [id number] RADHA JAMES E Paul Gayle e [place] [place] [id number] 8 12/25/2018 10:33:04 12/25/2018 12:23:00 Pain of temporomandibular joint 17997597 M26.629 Right TMJ Osteoarthr itis of temporomandibular joint 963184940 M13.88 right TMJ Myofascial pain 70290646 9 M79.11 tare worker y [id number] RADHA JAMES E [address] [place] [id number] 07/06/2021 15:00:31 07/06/2021 16:44:07 Osteoarthritis of temporomandibular joint 458996157 M13.88 right TMJ Myofascial pain 11213730 9 M79.11 tare worker y Pain of temporomandibular joint 21858648 M26.629 Right TMJ Temporoman dibular joint crepitus 226902911 M26.659 [id number] RADHA JAMES E [address] [place] [id number] 07/28/2021 16:00:44 07/28/2021 16:40:20 Osteoarthritis of temporomandibular joint 732102491 M13.88 right TMJ Myofascial pain 24185009 9 M79.11 M79.12 tare worker y/cervical Temporoman dibular joint crepitus 662334602 M26.659 Pain of temporomandibular joint 10761597 M26.629 Right TMJ [id number] BRENDA GRAY DDS [place] [address] [place] [id number] 08/30/2021 16:04:19 08/30/2021 16:43:01 Osteoarthritis of temporomandibular joint 032392244 M13.88 right TMJ Myofascial pain 39161163 9 M79.11 M79.12 tare worker y/cervical Temporoman dibular joint crepitus 843576741 M26.659 Pain of temporomandibular joint 93104267 M26.629 Right TMJ [id number] RADHA JAMES e [address] [place] [id number] 01/12/2022 15:32:42 01/12/2022 17:25:50 Osteoarthritis of temporomandibular joint 303855881 M13.88 right TMJ Myofascial pain 57593250 9 M79.11 M79.12 tare worker y/cervical Temporoman dibular joint crepitus 876421246 M26.659 Pain of temporomandibular joint 92251984 M26.629 Right TMJ [id number] PREETANJAL I JOHN, [place], [place] Sherryll e [address] [place] [id number] 07/25/2022 12:30:51 07/25/2022 13:56:39 Osteoarthritis of temporomandibular joint 291510078 M26.643 Myofascial pain 62270711 9 M79.11 M79.12 Pain of temporomandibular joint 08770804 M26.623 [id number] PREETANJAL I JOHN, [place], [place] [place] [address] [phone] 10/26/2022 12:30:12 10/26/2022 13:50:56 Osteoarthritis of temporomandibular joint 431101584 M26.643 Pain of temporomandibular joint 12690171 M26.623 Myofascial pain [id number] 9 M79.11 M79.12 Referred otalgia [id number] H92.03 resolved Health Concerns Section Related Observation LastModified by Organization Detai ls LastModified Time None Recorded Concern Status LastModified by Organization Details LastModified Time None Recorded Advance Directives Directive None Recorded Payers Encounter Date Sequence Insurance Name Policy Number Policy East Covered Member ID East Member ID Guarantor Name 07/28/2021 1 [employer] (MEDICARE REPLACEMENT/ ADVANTAGE - PPO) [facility] [id number] [facility] 08/30/2021 1 [employer] (MEDICARE REPLACEMENT/ ADVANTAGE - PPO) [facility] [id number] Pranay [facility] 01/12/2022 1 [employer] (MEDICARE REPLACEMENT/ ADVANTAGE - PPO) [facility] [id number] [facility] 07/25/2022 1 [employer] (MEDICARE REPLACEMENT/ ADVANTAGE - PPO) Pranay [facility] [id number] [facility] 10/26/2022 1 [employer] (MEDICARE REPLACEMENT/ ADVANTAGE - PPO) Pranay [facility] [id number] Pranay [facility] Notes Date Note Type Note Provider Name and Address Organization Details Recorded Time 2 text/html Jaw painReported bypatient.Onset:starte d 1 month(s) ago Location:right; preauricular Quality:none Severity:pain level 0/10 Duration and frequencyconstant Context:chews hard/crunchy/chewy foods Aggravating/contributi on factors:yawning; wide mouth opening Alleviating Factors:soft foods Associated Symptoms:jaw clicking right;jaw popping right;numbness/tinglin g Prior Tests:panorex Prior opinionprimary care provider Patient presents today for insertion of a maxillary stabilization oral appliance. They note no changes in symptoms which along with prior data was reviewed, updated and documented in the patient history of present illness. he describes compliance with home self care as previously recommended. Pranay reports that 3 or 4 months ago he was experiencing intermittent ear pain. He consulted with an ENT who reported his ears as normal and suggested a TMD consult. Pranay's dentist told him that he was grinding his teeth, so he bought an OTC powder guard that he has been wearing for a couple of months. Pranay states that he is no longer having the ear pain. V[place] Walker [facility] 07/28/2021 16:49:15 2 text/html Jaw painReported bypatient.Onset:starte d 1 month(s) ago Location:right; preauricular Quality:none Severity:pain level 0/10 Duration and frequencyconstant Context:chews hard/crunchy/chewy foods Aggravating/contributi on factors:yawning; wide mouth opening Alleviating Factors:soft foods Associated Symptoms:jaw clicking right;jaw popping right;numbness/tinglin g Prior Tests:panorex Prior opinionprimary care provider Patient presents today for follow-up. They report jaw symptoms which are improved since the previous visit. Symptoms and pertinent information along with prior data was reviewed, updated and documented in the patient history of present illness. Patient rates the pain intensity as 0 on a scale of 0 to 10. Patient is engaged in active treatment at this time. Pranay reports that he has been wearing his splint nightly. He reports some tension headaches during the day and continued right-sided neck pain. He beings p/t in [place] this month. He states that his jaw feels loose in the morning when removing his splint. He said that it is difficult to explain, but something in the right masseter area feels loose. VANCE Walker [facility] 08/30/2021 20:42:35 2 text/html Jaw painReported bypatient.Onset:starte d 1 month(s) ago Location:right; preauricular Quality:none Severity:pain level 0/10 Duration and frequencyconstant Context:chews hard/crunchy/chewy foods Aggravating/contributi on factors:yawning; wide mouth opening Alleviating Factors:soft foods Associated Symptoms:jaw clicking right;jaw popping right;numbness/tinglin g Prior Tests:panorex Prior opinionprimary care provider Patient presents today for follow-up. They report jaw symptoms which are improved since the previous visit. Symptoms and pertinent information along with prior data was reviewed, updated and documented in the patient history of present illness. Patient rates the pain intensity as 0 on a scale of 0 to 10. Patient is engaged in active treatment at this time. Pranay states that he wears his splint nightly. He states that his jaw no longer has the loose feeling that he was experiencing. Pranay is excited to be traveling again. He plans on going to to [place] soon. Brenda yusuf, [facility] 01/14/2022 14:02:40 3 text/html Jaw painReported bypatient.Onset:starte d 1 month(s) ago Location:right; preauricular Quality:none Severity:pain level 0/10 Duration and frequencyconstant Context:chews hard/crunchy/chewy foods Aggravating/contributi on factors:yawning; wide mouth opening Alleviating Factors:soft foods Associated Symptoms:jaw clicking right;jaw popping right;numbness/tinglin g Prior Tests:panorex Prior opinionprimary care provider Patient presents today for follow-up. They report jaw symptoms which are worsened since the previous visit. Symptoms and pertinent information along with prior data was reviewed, updated and documented in the patient history of present illness. Patient rates the pain intensity as 2 on a scale of 0 to 10. Patient is engaged in active treatment at this time. Pranay is seeing John Hoffmann for the first time today for his follow up with his splint. Pranay has been having a pain in his right ear and right sided neck pain for the last six months. Pranay has not been doing any home care or exercises. ROSA LOPEZ BDS, [place] [address] [address], [place], [phone], [facility] 07/31/2022 14:31:06 3 text/html Jaw painReported bypatient.Onset:starte d 1 month(s) ago Location:right; preauricular Quality:none Severity:pain level 0/10 Duration and frequencyconstant Context:chews hard/crunchy/chewy foods Aggravating/contributi on factors:yawning; wide mouth opening Alleviating Factors:soft foods Associated Symptoms:jaw clicking right;jaw popping right;numbness/tinglin g Prior Tests:panorex Prior opinionprimary care provider Patient presents today for follow-up. They report jaw symptoms which are resolved since the previous visit. Symptoms and pertinent information along with prior data was reviewed, updated and documented in the patient history of present illness. Patient rates the pain intensity as 0 on a scale of 0 to 10. Patient is completed active treatment at this time.Pranay is present today for his follow up with his splint. He states that he is doing very well and uses his splint every night. 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 ROSA LOPEZ BDS, [place] [address] [address], [place], [address], [facility] 10/26/2022 12:57:49
--- OUTSIDE RECORDS SUMMARY | 2024-09-22 18:35 | XMS_ITS | Clinical Summary ---
Author Organization [facility] Address [address] 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 Gender Identity Not on file Sexual Orientation Not on file Last Filed Vital Signs Vital Sign Reading Time Taken Comments Blood Pressure 103/78 07/27/2015 3:58 PM CDT sit ting Pulse - - Temperature 36.8 C (98.2 F) 02/07/2013 9:13 AM CDT Respiratory Rate 15 07/27/2015 3:58 PM CDT s itting Oxygen Saturation 97% 07/27/2015 3:53 PM CDT Inhaled Oxygen Concentration - - Weight 69.4 kg (153 lb) 07/27/2015 3:15 PM CDT Height 177.8 cm (5' 10) 07/27/2015 3:15 PM CDT Body Mass Index 21.95 07/27/2015 3:15 PM CDT Plan of Treatment Not on file Insurance [facility] MEDICARE * Guarantor: CARE,URGENT Account Type Relation to Patient Date of Phone Billing Address Special Guarantor Other none (Work) [phone] [address] Care Teams Astronomy Teacher Relationship Specialty Start Date End Date Chico Osorio MD [address] [place] [address] PCP - General 07/04/19
--- OUTSIDE RECORDS SUMMARY | 2024-09-22 18:35 | XMS_ITS | Clinical Summary ---
Author Organization [facility] Address [address], [place] [address] Care Team Providers Care Materials Associate Name Role Phone Clinician, Not Found MD Primary Care Provider Un available Source Comments You are receiving this document as you are listed as the primary care provider,follow-up provider, or the patient has been referred to you for consultation.This is in compliance with the Medicare and[facility] EHR Incentive Program,which states Providers who transition their patient to another setting of careor provider of care or refers their patient to another provider of care shouldprovide summary care record for each transition of care or referral. [facility] Allergies Active Allergy Reactions Criticality Noted Date Comments Amoxicillin Rash 02/21/2011 Atorvastatin Headache 09/28/2022 Other Other, see comments 05/19/2014 Runny nose, itchy eyes, etc Penicillin V Rash High 06/02/2020 Medications Magnesium 30 MG tablet Take 1 Tablet (30 mg) by mouth two times a day. 10/10/2013 Active aspirin EC 81 MG enteric coated tabletIndicatio ns:Impingement syndrome of right shoulder Take 1 Tablet (81 mg) by mouth daily. 10/10/2013 Active cholecalciferol (D 2000) 2000 UNITS tablet Take 1 Tablet (2,000 Units) by mouth. 05/03/2015 Active Cyanocobalamin (VITAMIN B-12) [address] under tongue. 11/19/2015 Active omega-3 fatty acids (MAXEPA,FISHOIL ) 1000 MG capsule Take 2 g by mouth daily. 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 Impingement syndrome of right shoulder 4 Family History Medical History Relation Name Comments Heart Disease Father Relation Name Status Comments Father Social History Tobacco Use Types Packs/Day Years Used Date Smoking Tobacco: Never Smokeless Tobacco: Never Alcohol Use Standard Drinks/Week Comments No 0 (1 standard drink = 0.6 oz pur e alcohol) Sex and Gender Information Value Date Recorded Sex Assigned at Not on file Legal Sex Male 4:03 AM CDT Gender Identity Not on file Sexual Orientation Not on file Last Filed Vital Signs Vital Sign Reading Time Taken Comments Blood Pressure 112/70 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 Pulse - - Temperature 36.4 C (97.5 F) 11/14/2023 10:06 AM CDT Respiratory Rate - - Oxygen Saturation - - Inhaled Oxygen Concentration - - Weight 72.6 kg (160 lb) 11/14/2023 10:06 AM CDT Height 170.2 cm (5' 7) 11/14/2023 10:06 AM CDT Body Mass Index 25.06 11/14/2023 10:06 AM CDT Plan of Treatment Health Maintenance Due Date Last Done Comments Medicare Annual Wellness Visit 1940 RSV Vaccine (1 - 1-dose 75+ series) 01/05/2016 COVID-19 Vaccine ( season) 2023 02/09/2023, 01/24/2022, 07/26/2021, Additional history exists DTaP/Tdap/Td Vaccine (2 - Tdap) 03/25/2024 03/25/2014, 03/04/2010, 05/16/2002 Influenza Vaccine (Season Ended) 2024 02/19/2023, 01/11/2022, 02/28/2021, Additional history exists IPV (Polio) Vaccine Aged Out 04/13/2006 No longe r eligible based on patient's age to complete this topic HepA Vaccine Aged Out 04/24/2007, 04/13/2006 No lo nger eligible based on patient's age to complete this topic Pneumococcal Vaccine 50+ Yrs Completed , 05/11/2015, 03/19/2006 Zoster/Shingles Vaccine Completed 08/15/19, 07/14/2018, 06/04/2018, Additional history exists HepB Vaccine Aged Out No longer eligi ble based on patient's age to complete this topic Hib Vaccine Aged Out No longer eligi ble based on patient's age to complete this topic MCV4 Vaccine Aged Out No longer eligi ble based on patient's age to complete this topic Meningococcal B Vaccine Aged Out No l onger eligible based on patient's age to complete this topic Insurance * Guarantor: Pranay Núñez Account Type Relation to Patient Date of Phone Billing Address Personal/Family Self 1940 [address] [place] [address] * Guarantor: Pranay Núñez Account Type Relation to Patient Date of Phone Billing Address Personal/Family Self 1940 [address] [place] [address] * Guarantor: Pranay Núñez Account Type Relation to Patient Date of Phone Billing Address Personal/Family Self 1940 [address] [place] [address] [facility] MEDICARE MANAGED CARE BS Care Teams Materials Associate Relationship Specialty Start Date End Date Clinician, Not Found, [place] [address] PCP - General 10/10/13
--- NOTE | 2024-09-22 19:04 | ED.GENADULT ---
HPI - General Adult General Time Seen by Provider: 19:04 Date Seen: 09/22/24 Chief complaint: Unspecified Complaint, Adult Stated complaint: Swollen glands, left shoulder pain Time Seen by Provider: 09/22/24 18:36 Source: patient and RN notes reviewed Mode of arrival: ambulatory Limitations: no limitations History of Present Illness HPI narrative: This 84-year-old male is ambulatory into the ED of his own accord with complaint of swollen neck glands, aching is throughout his chest, achiness in his shoulders but especially his left shoulder. He noted a right lymph node in his upper neck, lower jaw area earlier today, spread to the left side where he felt 1 there is well. He started to note pain into his left shoulder, pain across his chest, does hurt to touch. He took some Tylenol in it did help. His symptoms started about noon today. He notes a mild headache, brain fog. He was wondering if is thyroid could be swelling in his neck. He notes no difficulty breathing, no difficulty swallowing, no hoarseness. He has not noted any fevers or chills. He feels more tired. No cough or cold symptoms, no abdominal symptoms. He does have a history of polymyalgia rheumatica but states that felt different, he felt that more in his arms. He has not been on prednisone for some time. Did review with him that patients can have recurrent polymyalgia rheumatica. He also is on a statin for his cholesterol. He has not had any travel, no known ill contacts. He states he has a vessel that has about a 10% blockage in his heart which is followed by [facility], has never had a heart attack or required any stent placement. He does have an echo ordered which is due to be done at [facility] soon. He has had a prior right reverse shoulder replacement. Related Data Home Medications ?Medication ?Instructions ?Recorded ?Confirmed ascorbic acid (vitamin C) 1,000 mg 1 g PO DAILY 01/22/24 09/22/24 tablet cholecalciferol (vitamin D3) 50 50 mcg PO DAILY 01/22/24 09/22/24 mcg (2,000 unit) capsule cyanocobalamin (vitamin B-12) 1,000 mcg sublingual DAILY 01/22/24 09/22/24 1,000 mcg sublingual lozenge ipratropium bromide 42 mcg (0.06 2 spray intranasal HS PRN 01/22/24 09/22/24 %) nasal spray magnesium 250 mg tablet 250 mg PO DAILY 01/22/24 09/22/24 pravastatin 10 mg tablet 10 mg PO HS 01/22/24 09/22/24 fluticasone propionate 50 2 spray intranasal DAILY 01/28/24 09/22/24 mcg/actuation nasal spray,suspension Previous Rx's ?Medication ?Instructions ?Recorded prednisone 20 mg tablet 20 mg PO DAILY #30 tabs 09/22/24 Allergies Allergy/AdvReac Type Severity Reaction Status Date / Time amoxicillin Allergy Rash Verified 09/22/24 18:48 penicillin V Allergy Rash Verified 09/22/24 18:48 Review of Systems Status of ROS: Reports: 6 or more systems reviewed and unremarkable except as noted in History and below [facility] Medical History (Updated 09/22/24 @ 22:48 by Liliana Hinton MD) Hypotension ?I95.9 - Hypotension, unspecified (ICD-10) Insomnia ?G47.00 - Insomnia, unspecified (ICD-10) Spondylosis ?M47.9 - Spondylosis, unspecified (ICD-10) Thrombocytopenia ?D69.6 - Thrombocytopenia, unspecified (ICD-10) Hypercholesterolemia ?E78.00 - Pure hypercholesterolemia, unspecified (ICD-10) ASHD (arteriosclerotic heart disease) ?I25.10 - Atherosclerotic heart disease of [place] coronary artery without angina pectoris (ICD-10) Polymyalgia rheumatica ?M35.3 - Polymyalgia rheumatica (ICD-10) Squamous carcinoma Rheumatoid arthritis ?M06.9 - Rheumatoid arthritis, unspecified (ICD-10) Surgical History History of arthroscopy of right knee (01/16/06) ?Z98.890 - Other specified postprocedural states (ICD-10) 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) ?Z96.641 - Presence of right artificial hip joint (ICD-10) 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/19) ?Z96.642 - Presence of left artificial hip joint (ICD-10) H/O prostatectomy ?Z90.79 - Acquired absence of other genital organ(s) (ICD-10) H/O inguinal hernia repair (~2007) ?Z98.890 - Other specified postprocedural states (ICD-10) ?Z87.19 - Personal history of other diseases of the digestive system (ICD-10) 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) ?Z98.890 - Other specified postprocedural states (ICD-10) 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) ?Z96.651 - Presence of right artificial knee joint (ICD-10) Social History What is your current living situation?: I presently have a place to live Problems where you live: no known problems Problems where you live details: N/A In the past 12 months, utilities in danger of being shut off: no In past 12 months, lack of transportation kept you from medical appts, meetings, work, or getting things needed for daily living: no In the past 12 mos, have been you worried that your food would run out before you had money to buy more?: never true In the past 12 mos, the food you bought just didn't last and you didn't have money to buy more?: never true Highest level of school completed/degree received: Master's degree Smoking Status: Never smoker Do you use any of these nicotine containing products: None Second hand tobacco smoke exposure: No How often do you have a drink containing alcohol: never How often do you have six or more drinks on one occasion: Never AUDIT-C Alcohol total score: 0 Non-prescribed substance use: denies use How often does anyone, including family, friends and others, physically hurt you: never How often does anyone, including family, friends and others, insult or talk down to you: never How often does anyone, including family, friends and others, threaten you with harm: never How often does anyone, including family, friends and others, scream or curse at you: never service: No Exam Const: Vital Signs, click to edit/add: Vital Signs - 24 hr 09/22/24 18:43 09/22/24 19:20 09/22/24 19:25 Temperature 97.7 F Pulse Rate 74 Pulse Rate [Right Pulse Oximeter] 80 Respiratory Rate 18 13 Respiratory Rate [ Left Shoulder] Blood Pressure 130/71 Blood Pressure [Ri ght Upper Arm] 131/87 Pulse Oximetry 95 95 95 Oxygen Delivery Me thod Room Air 09/22/24 19:31 09/22/24 19:35 09/22/24 20:03 Temperature Pulse Rate 80 75 Pulse Rate [Right Pulse Oximeter] Respiratory Rate 15 18 Respiratory Rate [ Left Shoulder] 16 Blood Pressure 126/68 126/81 Blood Pressure [Ri ght Upper Arm] Pulse Oximetry 96 98 Oxygen Delivery Me thod 09/22/24 20:31 09/22/24 21:01 09/22/24 21:11 Temperature 98.2 F 97.7 F Pulse Rate 77 79 Pulse Rate [Right Pulse Oximeter] Respiratory Rate 18 18 Respiratory Rate [ Left Shoulder] Blood Pressure 122/61 133/63 Blood Pressure [Ri ght Upper Arm] Pulse Oximetry 96 99 Oxygen Delivery Me thod 09/22/24 21:32 09/22/24 21:55 09/22/24 22:01 Temperature Pulse Rate 75 74 69 Pulse Rate [Right Pulse Oximeter] Respiratory Rate 18 22 18 Respiratory Rate [ Left Shoulder] Blood Pressure 118/62 130/71 121/69 Blood Pressure [Ri ght Upper Arm] Pulse Oximetry 98 96 96 Oxygen Delivery Me thod This 84-year-old male is alert, interactive, no apparent distress, sitting up on the edge of the bed when I come in. His speech is normal, able to speak in complete sentences, no hoarseness. Pupils equal round reactive to light, sclera clear, extraocular muscles intact. Symmetrical facial function. He does complain of discomfort when I palpate under the submental area, note no palpable submental adenopathy or glands. Neck is supple, I really do not feel any definite lymphadenopathy or masses. Do not appreciate significant thyromegaly, certainly no tenderness. Lungs are clear come good air entry, no wheezing or crackles. He is nontender over his clavicles, AC joints. Fully mobilize as his left shoulder and lifts it above his head showing me that it was uncomfortable. There is no joint effusion noted. Anterior chest wall has no visible rash, he does complain of generalized tenderness when I palpate over the anterior ribs and sternum. CV regular rate and rhythm, no murmur, normal S1-S2, no S3-S4. Abdomen is soft, nontender, nondistended, no organomegaly, rebound or guarding. Documenting provider has reviewed patient's vital signs: yes Course Course ED Course: This patient has what seems to be more of myalgias and discomfort. I do not identify a discernible masses in his neck at this point, have discussed with him that we could consider doing CT imaging of his neck if need be but I would recommend we start with some labs. I would recommend that we consider atypical presentation of cardiac disease and do a troponin, EKG and cardiac monitoring. Would like to do this. Will look at a portable chest x-ray and look at his left shoulder with imaging. I cannot help but feel this could be presentation of recurrent polymyalgia rheumatica and will be getting inflammatory markers. We also discussed early etiology of infectious disease which can present nondescript Ali. Will be getting a CBC and as well as other labs. Will monitor him here with pulse oximetry as well as the cardiac monitoring. Reevaluation(s) Time of Reevaluation #1: 21:18 Reevaluation #1: Have reviewed patient's normal chest x-ray with him, the high-riding shoulder which could go with some degenerative complications of rotator cuff tendon/chronic shoulder injury. He states it is not that, he states shoulders now feeling better. Tells me that he is having pain with deep breathing and it is sharp, he demonstrates taking a deep breath and stops and grimaces. He did request Tylenol and he was given a 1000 mg oral Tylenol. With this pleuritic chest pain he does feel a bit short of breath but is maintaining oxygenation with good pulse oximetry. His chest x-ray was negative. He is also quite fixated on his neck being painful. I can now feel 2 anterior cervical lymph nodes when I have him just lift is chin and palpate from the front. The right 1 is a little larger and little irregular, does not feel fluctuant, no overlying erythema but he states both her painful. The left is about quarter size, mid anterior cervical chain but mobile. Neither are fixed her matted but he states both are tender. He is quite fixated on his symptoms. Did talk to Radiology. We will be doing chest CT PE protocol and they will carry this into a soft tissue neck. Understandably the contrast timing may not be perfect for the neck but would like to get both imaging done. Radiology will try to do the best they can. Patient would like to proceed with this. We have reviewed that pleurisy can be associated with infections which can include viruses. Chest CT imaging will give us a very good look at his lung parenchyma and make sure not missing anything such as a bacterial infection. His sed rate is normal, makes p.m. are very much less likely. His C reactive protein is elevated at 4.3. We discussed that this does make me more concerned of the potential for infectious etiology which certainly I think viral could be high on the differential. Time of Reevaluation #2: 22:44 Reevaluation #2: Have reviewed with patient that I am suspecting pericarditis with his 2nd EKG findings. His follow-up troponin is still normal at 0.01. He states he is actually feeling better, does not feel the pain in his shoulder any longer. I was able to actually reclined him a little further back in bed and did not increase his symptoms. He does note there is pain when he takes a deep breath, still suspect that this is irritation of the lining but more secondary to pericarditis versus pleurisy which was the initial thought. At this time, did review that NSAIDs and colchicine are the mainstay of treatment in younger populations but both of these medicines have significant nephrotoxic affects. They do have omeprazole at home for him to take. I think he may be safest trying prednisone, will initiate 20 mg a day noting that this may need to be titrated upwards if not responding. If he is not responding, Cardiology consultation may be necessary. He has been on prednisone in the past with PMR and I am not aware of any complications with that upon talking to patient. I believe his etiology to be viral, specifically with the to non pathologic lymph nodes that are felt in his anterior cervical chain. I do not feel he warrants further workup. Looking at criteria for hospitalization and those at high risk, he does not meet any of these. He would prefer to go home. Did look at some literature from the [place] [employer] circulation journal and recommendations for lower does corticosteroids of point to 0.2-0.5 mg per kilos per day were reported to be efficacious and without the side effects of the high-dose steroids. Vital Signs Vital signs: Initial Vital Signs Temperature 97.7 F 09/22/24 18:43 Temperature Source Temporal Artery Scan 09/22/24 18:43 Pulse Rate 80 09/22/24 18:43 Pulse Rhythm Regular 09/22/24 18:43 Pulse Strength 3+ Normal 09/22/24 18:43 Respiratory Rate 18 09/22/24 18:43 Blood Pressure 131/87 09/22/24 18:43 Blood Pressure Mean 101 09/22/24 18:43 Blood Pressure Position Sitting 09/22/24 18:43 Pulse Oximetry 95 09/22/24 18:43 Oxygen Delivery Method Room Air 09/22/24 18:43 Vital Signs Temperature 97.7 F 09/22/24 18:43 Pulse Rate 80 09/22/24 18:43 Respiratory Rate 18 09/22/24 18:43 Blood Pressure 131/87 09/22/24 18:43 Pulse Oximetry 95 09/22/24 18:43 Oxygen Delivery Method Room Air 09/22/24 18:43 Temperature 97.7 F 09/22/24 21:11 Pulse Rate 69 09/22/24 22:01 Respiratory Rate 18 09/22/24 22:01 Blood Pressure 121/69 09/22/24 22:01 Pulse Oximetry 96 09/22/24 22:01 Oxygen Delivery Method Room Air 09/22/24 18:43 Medications Administered Medications: Discontinued Medications Generic Name Dose Route Start Last Admin Trade Name Otfq PRN Reason Stop Dose Admin Acetaminophen 1,000 mg 09/22/24 21:09 09/22/24 21:11 Acetaminophen 500 Mg Tablet PO 09/22/24 21:10 1,000 mg ONCE ONE Administration Medical Decision Making Lab Data Lab results reviewed: Yes I reviewed the patient's lab results Labs: Lab Results 09/22/24 09/22/24 Range/Units 19:20 22:20 WBC 5.42 (4.50-11.00) K/uL RBC 4.37 (4.30-5.90) m/uL Hgb 13.0 L (13.5-17.5) gm/dL Hct 40.9 (37.0-53.0) % MCV 94 (80-100) fL MCH 30 (26-34) pg MCHC 32 (32-36) gm/dL RDW Coeff of Jacob 13.6 (11.5-15.5) % Plt Count 110 L (140-440) K/uL Neut % (Auto) 78.0 H (42.0-72.0) % Lymph % (Auto) 13.3 L (20-44) % Gulf % (Auto) 7.4 (0.0-11.0) % Eos % (Auto) 0.9 (0.0-7.0) % Baso % (Auto) 0.2 (0.0-3.0) % Neut # (Auto) 4.20 (1.7-7.0) K/uL Lymph # (Auto) 0.70 L (0.90-2.90) K/uL Gulf # (Auto) 0.40 (0.00-0.90) K/UL Eos # (Auto) 0.05 (0.00-0.50) K/uL Baso # (Auto) 0.01 (0.00-0.30) K/uL Abs Immat Gran (auto) 0.01 (0.00-0.30) K/uL Imm/Tot Granulo (auto) 0.2 % ESR 13 (2-15) mm/hr Sodium 139 (135-149) mmol/L Potassium 4.1 (3.6-5.1) mmol/L Chloride 105 (96-114) mmol/L Carbon Dioxide 26 (20-32) mmol/L Anion Gap 8 (7-15) mEq/L BUN 20 (7-30) mg/dL Creatinine 0.9 (0.5-1.5) mg/dL Estimated Creat Clear 57.79 Estimated GFR 85 ml/min Glucose 135 H (60-115) mg/dL Lactate 1.7 (0.5-1.9) mmol/L Calcium 9.2 (8.4-10.6) mg/dL Total Bilirubin 0.9 (0.1-1.5) mg/dL AST 35 (12-35) U/L ALT 20 (4-50) U/L Alkaline Phosphatase 70 (40-150) U/L Total Creatine Kinase 88 (54-186) U/L Troponin I < 0.01 (0.01-0.04) ng/mL C-Reactive Protein 4.3 H (0.5-1.0) mg/dL Total Protein 7.0 (6.0-8.3) g/dL Albumin 4.5 (3.3-5.0) g/dL TSH 1.070 (0.270-4.200) uIU/mL POC Troponin I 0.00 L 0.01 (0.01-0.04) ng/ml Imaging Data Chest x-ray: Attestation: I have reviewed the pertinent imaging results. Radiologist's impression: Patient: TARA WILKINS Facility:?[facility] Patient ID:?[id number] Site Patient ID:?[id number]. Site :?1940 Study:?XRay-Chest 1 VIEW-09/22/2024 8:01:13 PM Ordering Physician:Ole Ford Final Report: INDICATION: Chest discomfort. TECHNIQUE: Chest 1 view. COMPARISON: CT chest, abdomen, and pelvis 01/22/2024. FINDINGS: Cardiovascular and mediastinum: Heart size and vasculature are normal in caliber and appearance. Lungs and pleural spaces: Lungs are clear. No pleural effusion, or pneumothorax. Mild elevation of the left hemidiaphragm. Bones and soft tissues: Right shoulder arthroplasty. Otherwise, unremarkable for age. IMPRESSION: No evidence of an acute pulmonary process. Dictated by Vahe Benitez MD @ 09/22/2024 8:38:08 PM (Electronic Signature) XR left shoulder: Attestation: I have reviewed the pertinent imaging results. Radiologist's impression: Patient: TARA WILKINS Facility:?[facility] Patient ID:?[id number] Site Patient ID:?[id number]. Site :?1940 Study:?XRay-Shoulder Left -09/22/2024 8:01:37 PM Ordering Physician:Ole Ford Final Report: INDICATION: Shoulder Pain, no trauma TECHNIQUE: Shoulder radiograph 3 views left COMPARISON: None FINDINGS: Bone: No acute fractures or aggressive bone lesions are identified. Cephalad migration of the humeral head is noted, likely due to rotator cuff atrophy and/or tear. Moderate diffuse osteopenia is present. 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 The acromioclavicular joint has mild osteoarthritis. Soft tissue: Unremarkable. The visualized hemithorax is unremarkable in appearance. No radiopaque foreign bodies are seen. IMPRESSIONS: 1. No acute osseous injuries or abnormalities are noted. 2. Cephalad migration of the humeral head is noted, likely due to rotator cuff atrophy and/or tear. Dictated by Ben Johnson MD @ 09/22/2024 8:36:26 PM Dictated by: Ben Johnson MD @ 09/22/2024 20:36:30 (Electronic Signature) CT scan - chest: Attestation: I have reviewed the pertinent imaging results. Radiologist's impression: Patient: TARA WILKINS Facility:?[facility] Patient ID:?[id number] Site Patient ID:?[id number]. Site :?1940 Study:?CT-Chest Angio PE W/ISOVUE 370 95CC-09/22/2024 9:59:07 PM Ordering Physician:Ole Ford Final Report: INDICATION: Chest pain, pleurisy, shortness of breath. TECHNIQUE: CTA chest PE was acquired with 95 cc Isovue 370 IV contrast. Coronal and sagittal MIP reconstructions were performed. COMPARISON: CT chest, abdomen, and pelvis 01/22/2024. FINDINGS: Heart and vasculature: Contrast opacification of the pulmonary arterial tree is adequate. No sign of pulmonary embolism. Heart size is normal. Trace pericardial effusion. Thoracic aorta and pulmonary artery are normal in caliber. Coronary artery calcifications, particularly of the LAD. Lungs and pleura: Left hemidiaphragm elevation. Bibasilar atelectasis. Otherwise no acute infiltrates. Focal tree-in-bud nodularity in the posterolateral right upper lobe, unchanged. No pleural effusions, pleural thickening, or pneumothorax. Lymph nodes/mediastinum: No mediastinal, hilar, or axillary adenopathy. Thyroid gland is unremarkable. Chest wall: No masses. Upper abdomen: Partially visualized splenomegaly, unchanged. Bones: Degenerative changes. Right reverse total shoulder arthroplasty. IMPRESSION: 1. No evidence of pulmonary embolism. 2. Bibasilar atelectasis and left hemidiaphragm elevation. Otherwise no acute pulmonary infiltrates. 3. Coronary artery calcifications, particularly of the LAD. 4. Trace pericardial effusion. Please note that all CT scans at this facility use dose modulation, iterative reconstruction, and/or weight-based dosing when appropriate to reduce radiation dose to as low as reasonably achievable. Dictated by Shen Hamilton MD @ 09/22/2024 10:24:05 PM (Electronic Signature) CT- Other: Attestation: I have reviewed the pertinent imaging results. Radiologist's impression: Patient: TARA WILKINS Facility:?[facility] Patient ID:?[id number] Site Patient ID:?[id number]. Site :?1940 Study:?CT-ST Neck W/ISOVUE 370 95CC-09/22/2024 10:00:30 PM Ordering Physician:Ole Ford Final Report: Indication: Cervical lymph nodes. Technique: Contrast-enhanced CT of the neck with multiplanar reconstructions utilizing 95 cc Isovue 370 iodinated intravenous contrast. Comparison: None available. Findings: Motion degraded exam. No suspicious mucosal based mass or enhancement. No pathologically enlarged cervical lymph nodes. Normal parotid and submandibular glands. Unremarkable thyroid. The lung apices are clear. No aggressive osseous lesion is identified. The imaged intracranial structures and orbits are unremarkable. Impression: 1. Motion degraded exam. 2. No soft tissue mass or pathologically enlarged cervical lymph nodes. Please note that all CT scans at this facility use dose modulation, iterative reconstruction, and/or weight-based dosing when appropriate to reduce radiation dose to as low as reasonably achievable. Dictated by Gurpreet Brandon MD @ 09/22/2024 10:12:26 PM (Electronic Signature) ECG Data Attestation: I personally reviewed and interpreted this ECG as follows: (Normal sinus rhythm, 73 beats per minute. Artifact seen, do not appreciate active ischemic change or infarct.) Prior ECG tracings: available for review (Last EKG had bradycardia.) Interpretation: EKG and it 1022 p.m. shows sinus rhythm, 73 beats per minute. There is supple diffuse ST segment elevation in the majority of the leads. No evidence any Q-wave changes or flipping of T-waves in comparison to prior. Of note, initial EKG really had some artifact in it. Discharge Plan Discharge Clinical Impression: Pericarditis Qualifiers: Pericarditis type: infectious Infectious pericarditis etiology: viral Chronicity: acute Qualified Code(s): I30.1 - Infective pericarditis Patient Disposition: Home, Self-Care Condition: Stable Instructions: Acute Pericarditis (ED) Additional Instructions: Need to take 20 mg omeprazole daily to protect your stomach while you are on the prednisone. Next dose of prednisone due tomorrow evening, recommend taking with food. Can use Tylenol 1000 mg 3 times a day for pain management. Minimize strenuous cardiac activity until your symptoms have improved. Do need to follow up in clinic with in 3-5 days for recheck, please call to get that scheduled as soon as possible tomorrow. If you develop fever, have worsening symptoms despite outlined treatment, do need to return for further evaluation. Current literature would suggest that you need to be on prednisone for 4 weeks and then tapered off after that. Activity Level: Activity as Tolerated Prescriptions: New prednisone 20 mg tablet 20 mg PO DAILY Qty: 30 0RF No Action pravastatin 10 mg tablet 10 mg PO HS ipratropium bromide 42 mcg (0.06 %) spray,non-aerosol 2 spray INTRANASAL HS PRN magnesium 250 mg tablet 250 mg PO DAILY cyanocobalamin (vitamin B-12) 1,000 mcg lozenge 1,000 mcg sublingual DAILY ascorbic acid (vitamin C) 1,000 mg tablet 1 g PO DAILY cholecalciferol (vitamin D3) 50 mcg (2,000 unit) capsule 50 mcg PO DAILY fluticasone propionate 50 mcg/actuation spray,suspension 2 spray INTRANASAL DAILY Follow Up/Referrals: Chico Osorio MD [Primary Care Provider, Family Practice] Stand Alone Forms: Fingo Info Instructions
[2024-09-22 19:35] LABS: Lactate* 1.7 mmol/L (0.5-1.9)
[2024-09-22 19:38] LABS: Basophils Absolute Auto 0.01 K/uL (0.00-0.30); Basophils Percent Auto 0.2 % (0.0-3.0); Eosinophils Absolute Auto 0.05 K/uL (0.00-0.50); Eosinophils Percent Auto 0.9 % (0.0-7.0); Hematocrit 40.9 % (37.0-53.0); Immature Granulocytes Abs Auto 0.01 K/uL (0.00-0.30); Immature Granulocytes Pct Auto 0.2 %; Lymphocytes Percent Auto 13.3 % (20-44); Mean Corpuscular HGB Conc 32 gm/dL (32-36); Mean Corpuscular Hemoglobin 30 pg (26-34); Mean Corpuscular Volume 94 fL (80-100); Monocytes Percent Auto 7.4 % (0.0-11.0); Platelet Count* 110 K/uL (140-440); RDW Coefficient of Variation % 13.6 % (11.5-15.5); Red Blood Count 4.37 m/uL (4.30-5.90); White Blood Count* 5.42 K/uL (4.50-11.00)
--- NOTE | 2024-09-22 19:38 | CRLHL7_ITS ---
For Patients: As a result of the Cures Act, medical imaging exams and procedure reports are released immediately into your electronic medical record. You may view this report before your referring provider. If you have questions, please contact your health care provider. INDICATION: Shoulder Pain, no trauma TECHNIQUE: Shoulder radiograph 3 views left COMPARISON: None FINDINGS: Bone: No acute fractures or aggressive bone lesions are identified. Cephalad migration of the humeral head is noted, likely due to rotator cuff atrophy and/or tear. Moderate diffuse osteopenia is present. 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 The acromioclavicular joint has mild osteoarthritis. Soft tissue: Unremarkable. The visualized hemithorax is unremarkable in appearance. No radiopaque foreign bodies are seen. IMPRESSIONS: 1. No acute osseous injuries or abnormalities are noted. 2. Cephalad migration of the humeral head is noted, likely due to rotator cuff atrophy and/or tear. Dictated by Ben Johnson MD @ 09/22/2024 8:36:26 PM Dictated by: Ben Johnson MD @ 09/22/2024 20:36:30 (Electronically Signed)
--- NOTE | 2024-09-22 19:38 | CRLHL7_ITS ---
For Patients: As a result of the Century Cures Act, medical imaging exams and procedure reports are released immediately into your electronic medical record. You may view this report before your referring provider. If you have questions, please contact your health care provider. INDICATION: Chest discomfort. TECHNIQUE: Chest 1 view. COMPARISON: CT chest, abdomen, and pelvis 01/22/2024. FINDINGS: Cardiovascular and mediastinum: Heart size and vasculature are normal in caliber and appearance. Lungs and pleural spaces: Lungs are clear. No pleural effusion, or pneumothorax. Mild elevation of the left hemidiaphragm. Bones and soft tissues: Right shoulder arthroplasty. Otherwise, unremarkable for age. IMPRESSION: No evidence of an acute pulmonary process. Dictated by Vahe Benitez MD @ 09/22/2024 8:38:08 PM (Electronically Signed)
[2024-09-22 19:39] LABS: Slide Review Reflex No
[2024-09-22 19:50] LABS: Albumin* 4.5 g/dL (3.3-5.0); Chloride* 105 mmol/L (96-114); Sodium* 139 mmol/L (135-149)
[2024-09-22 19:51] LABS: Potassium* 4.1 mmol/L (3.6-5.1)
[2024-09-22 19:53] LABS: Blood Urea Nitrogen* 20 mg/dL (7-30); Creatinine* 0.9 mg/dL (0.5-1.5); Est. Creatinine Clearance* 57.79; Estimated Glomerular Filt Rate 85 ml/min
[2024-09-22 19:54] LABS: Alanine Aminotransferase* 20 U/L (4-50); Alkaline Phosphatase* 70 U/L (40-150); Anion Gap 8 mEq/L (7-15); Aspartate Amino Transferase* 35 U/L (12-35); Bilirubin Total* 0.9 mg/dL (0.1-1.5); Calcium* 9.2 mg/dL (8.4-10.6); Carbon Dioxide* 26 mmol/L (20-32); Creatine Kinase* 88 U/L (54-186); Glucose* 135 mg/dL (60-115)
[2024-09-22 19:56] LABS: C Reactive Protein* 4.3 mg/dL (0.5-1.0)
[2024-09-22 20:07] LABS: Troponin I* < 0.01 ng/mL (0.01-0.04)
[2024-09-22 20:32] LABS: Erythrocyte SedimentationRate* 13 mm/hr (2-15)
[2024-09-22] MEDS: ACETAMINOPHEN 500 MG TABLET 1000 MG PO (21:11)
--- NOTE | 2024-09-22 21:17 | CRLHL7_ITS ---
For Patients: As a result of the Century Cures Act, medical imaging exams and procedure reports are released immediately into your electronic medical record. You may view this report before your referring provider. If you have questions, please contact your health care provider. INDICATION: Chest pain, pleurisy, shortness of breath. TECHNIQUE: CTA chest PE was acquired with 95 cc Isovue 370 IV contrast. Coronal and sagittal MIP reconstructions were performed. COMPARISON: CT chest, abdomen, and pelvis 01/22/2024. FINDINGS: Heart and vasculature: Contrast opacification of the pulmonary arterial tree is adequate. No sign of pulmonary embolism. Heart size is normal. Trace pericardial effusion. Thoracic aorta and pulmonary artery are normal in caliber. Coronary artery calcifications, particularly of the LAD. Lungs and pleura: Left hemidiaphragm elevation. Bibasilar atelectasis. Otherwise no acute infiltrates. Focal tree-in-bud nodularity in the posterolateral right upper lobe, unchanged. No pleural effusions, pleural thickening, or pneumothorax. Lymph nodes/mediastinum: No mediastinal, hilar, or axillary adenopathy. Thyroid gland is unremarkable. Chest wall: No masses. Upper abdomen: Partially visualized splenomegaly, unchanged. Bones: Degenerative changes. Right reverse total shoulder arthroplasty. IMPRESSION: 1. No evidence of pulmonary embolism. 2. Bibasilar atelectasis and left hemidiaphragm elevation. Otherwise no acute pulmonary infiltrates. 3. Coronary artery calcifications, particularly of the LAD. 4. Trace pericardial effusion. Please note that all CT scans at this facility use dose modulation, iterative reconstruction, and/or weight-based dosing when appropriate to reduce radiation dose to as low as reasonably achievable. Dictated by Shen Hamilton MD @ 09/22/2024 10:24:05 PM (Electronically Signed)
--- NOTE | 2024-09-22 21:17 | CRLHL7_ITS ---
For Patients: As a result of the Century Cures Act, medical imaging exams and procedure reports are released immediately into your electronic medical record. You may view this report before your referring provider. If you have questions, please contact your health care provider. Indication: Cervical lymph nodes. Technique: Contrast-enhanced CT of the neck with multiplanar reconstructions utilizing 95 cc Isovue 370 iodinated intravenous contrast. Comparison: None available. Findings: Motion degraded exam. No suspicious mucosal based mass or enhancement. No pathologically enlarged cervical lymph nodes. Normal parotid and submandibular glands. Unremarkable thyroid. The lung apices are clear. No aggressive osseous lesion is identified. The imaged intracranial structures and orbits are unremarkable. Impression: 1. Motion degraded exam. 2. No soft tissue mass or pathologically enlarged cervical lymph nodes. Please note that all CT scans at this facility use dose modulation, iterative reconstruction, and/or weight-based dosing when appropriate to reduce radiation dose to as low as reasonably achievable. Dictated by Gurpreet Brandon MD @ 09/22/2024 10:12:26 PM (Electronically Signed)
[2024-09-22 22:36] LABS: Troponin, Point-of-Care* 0.01 ng/ml (0.01-0.04)
[2024-09-22] MEDS: predniSONE 10 MG TABLET 20 MG PO (22:55)
== END 2024-09-22 23:05 | disposition home or self-care (01) ==
PROVIDERS: Emergency Provider Family Medicine; PCP Surgery
DX: I31.9 Disease of pericardium, unspecified (principal); R51.9 Headache, unspecified; R22.1 Localized swelling, mass and lump, neck; M25.512 Pain in left shoulder; M35.3 Polymyalgia rheumatica; Z79.899 Other long term (current) drug therapy
CPT/HCPCS: 36415; 70491; 71045; 71275; 73030; 80053; 82550; 83605; 84443; 84484; 85025; 85651; 86140; 93005; 94761; 99284; 99285; A9270; J7512; Q9967

== ENCOUNTER 2024-09-26 18:57 | Emergency (ER) | payer MEDICARE, BC, SELFPAY ==
--- OUTSIDE RECORDS SUMMARY | 2019-07-10 10:55 | XMS_ITS | Continuity of Care Document ---
Author Organization [facility] Address [address] [address] [place] [address] Phone Care Team Providers Care Painter And Grader Cork Name Role Phone Octavia Reyes Unavailable Unavailable Allergies, Adverse Reactions, Alerts Substance Reaction Status Criticality amoxicillin HivesHives Active No Information WARNIN allergy(ies) could not be collected because the type is not supported. Please contact the source practice for further details. Medications Medication Instructions Dosage Effective Dates (start - stop) Status Comments trazodone 50 mg tablet take 1 tablet by oral route every day as needed 50 MG - Active lorazepam 0.5 mg tablet take 1 tablet by oral route every day as needed 0.5 MG - Active folic acid 1 mg tablet take 1 tablet by oral route every day 1 MG - Active Medrol 2 mg tablet take 1 tablet by oral route every day with food 2 MG - Active Fish Oil 1,000 mg (120 mg-180 mg) capsule take 1 capsule by oral route every day 1 capsule - Active VITAMIN D3 (unknown strength) Not Available - Active Calcium 500 500 mg calcium (1,250 mg) tablet take 1 tablet by oral route every day 1 tablet - Active VITAMIN B-12 (unknown strength) take once a day Not Available - Active Mag Glycinate 100 mg tablet take 2 tablet by oral route every day 2 tablet - Active Procedures Procedure Date Small Bowel PillCam Capsule 1st Day Offic/outpt E&m [place] 0 Advance Directives Directive Yes / No Effective Date File Name No Information Encounters Encounter Description Practice Location Reason(s) For Visit Diagnoses Date Provider Providers Copied on Encounter [facility], [address] [address], [place], [place], [id number], tel:[phone] [facility] No Information 0 Laatsch PAC Octavia. [address] [facility], [facility] [address], [place], [address], [place]. tel:[phone] Kel Moffett MD. tel:[phone] [facility], [address] [address], [place], [place], [address], [place] tel:[phone] [facility] Small bowel lesion 0 Janetatsch PAC Octavia. [address] [place] [address], [facility] [address], [place], [id number], [place]. tel:[phone] Kel Moffett MD, [address] [place] [address], [address]. tel:[phone] [facility], [address] [address], [place], [place], [id number], [place] tel:[phone] [facility] Iron deficiency anemia, unspecified Feb-2 0 Lauren Ariza. [address] [facility], [facility] [address], [place], [address], [place]. tel:[phone] Kel Moffett MD. tel:[phone] ng Provider: Octavia AVILA, [facility] [address], [address]. tel:[phone] [facility], [address] [address], [place], [place], [id number], [place] tel:[phone] [facility] Iron deficiency anemia, unspecified iron deficiency anemia typeDysphagi a, unspecified type Feb-2 6 0 Laatsch PAC Octavia. [address] [place] [address], [facility] [address], [place], [address], [place]. tel:[phone] Kel Moffett MD. tel:[phone] ng Provider: Referral Self, USE FOR SELF REFERRALS. Offic/outpt E&m New Mod Sever [facility], [address] [address], [place], [place], [address], tel:[phone] [facility] GI Symptoms or Concerns (chief complaint) Iron deficiency anemia, unspecified iron deficiency anemia typeRUQ pain May- 0 Blade Dudley. [address] [facility], [address], [place], [place], [address], . tel:[phone] Kel Moffett MD. tel:[phone] ng Provider: Chico Hurtado, [address] [place] [address], [address]. tel:[phone] [facility], [address] [address], [place], [place], [address], tel:[phone] No Information 0 No Information Referring Provider: Chico Hurtado, [address] [place] [address], [address]. tel:[phone] Family History Family Member Type Diagnosis Age At Onset Mother Problem (finding) Brother Problem (finding) Alive and well Father Problem (finding) Heart Disease Problem (finding) Family history of cance r of colon Immunizations Vaccine Date Status Comments Seasonal trivalent influenza vaccine, adjuvanted, preservative free administered Note: [facility] bi-direct ional interface ; Source: Other Registry zoster vaccine recombinant administered N ote: [facility] bi-directional interface ; Source: Other Registry zoster vaccine recombinant administered N ote: [facility] bi-directional interface ; Source: Other Registry zoster vaccine recombinant administered N ote: [facility] bi-directional interface ; Source: Other Registry Seasonal trivalent influenza vaccine, adjuvanted, preservative free administered Note: [facility] bi-direct ional interface ; Source: Other Registry Pneumovax 23 administered Note: [facility] bi-d irectional interface ; Source: Other Registry influenza, high dose seasona l, preservative-free administered Note: [facility] bi-direct ional interface ; Source: Other Registry influenza, high dose seasona l, preservative-free administered Note: [facility] bi-direct ional interface ; Source: Other Registry influenza, high dose seasona l, preservative-free administered Note: [facility] bi-direct ional interface ; Source: Other Registry Prevnar 13 administered Note: [facility] bi-d irectional interface ; Source: Other Registry tetanus toxoid, reduced diphtheria toxoid, and acellular pertussis vaccine, adsorbed administered Note: [facility] b i-directional interface ; Source: Other Registry influenza, high dose seasona l, preservative-free administered Note: [facility] bi-direct ional interface ; Source: Other Registry Influenza, seasonal, injectable administe red Note: [facility] bi- directional interface ; Source: Other Registry typhoid Vi capsular polysaccharide vaccine administered Note: [facility] bi-dir ectional interface ; Source: Other Registry tetanus and diphtheria toxoi ds, adsorbed, preservative free, for adult use (5 Lf of tetanus toxoid and 2 Lf of diphtheria toxoid) administered Note: [facility] C bi- directional interface ; Source: Other Registry Influenza, seasonal, injecta ble, preservative free administered Note: [facility] bi-direct ional interface ; Source: Other Registry Novel [id number], all formulations administered Note: [facility] bi-direct ional interface ; Source: Other Registry zoster vaccine, live administered Note: [facility] bi-directional interface ; Source: Other Registry Influenza, seasonal, injectable administe red Note: [facility] bi- directional interface ; Source: Other Registry Havrix administered Note: [facility] bi-d irectional interface ; Source: Other Registry Influenza, seasonal, injectable administe red Note: [facility] bi- directional interface ; Source: Other Registry Havrix administered Note: [facility] bi-d irectional interface ; Source: Other Registry typhoid Vi capsular polysaccharide vaccine administered Note: [facility] bi-dir ectional interface ; Source: Other Registry poliovirus vaccine, inactivated administe red Note: [facility] bi- directional interface ; Source: Other Registry Pneumovax 23 administered Note: [facility] bi-d irectional interface ; Source: Other Registry Influenza, seasonal, injectable administe red Note: [facility] bi- directional interface ; Source: Other Registry Influenza, seasonal, injectable administe red Note: [facility] bi- directional interface ; Source: Other Registry Influenza, seasonal, injectable administe red Note: [facility] bi- directional interface ; Source: Other Registry Influenza, seasonal, injectable administe red Note: [facility] bi- directional interface ; Source: Other Registry Payers Payer name Insurance type Covered green party ID Authoriza tivladimir(s) [employer] Medicare MB [id number] Social History Type Description Quantity Date Captured Comments Alcohol Use Details Unknown Caffeine Use Details Unknown Tobacco Use Status No Information Smoking Status No Information Sex Male Chief Complaint And Reason For Visit No Information Reason For Referral Reason For Referral No Information Plan Of Treatment Date Type Action Status Referral Ordered: MRI Enterography WITHOUT And WITH Contrast Appointment date/timeframe: 07/15/2019 ordered Referral Ordered: Ultrasound Abdomen Appointment date/timeframe: 06/26/2019 ordered Referral Ordered: Small Bowel PillCam Appointment date/timeframe: 06/25/2019 ordered History Of Present Illness Encounter Date Complaint History Of Prese nt Illness GI Symptoms or Concerns This pat tomás is a pleasant 79-year-old male with history of polymyalgia rheumatica who is seen in consultation at the request of Dr. Osorio for evaluation of iron-deficiency anemia.The patient underwent preoperative evaluation by his PCP 1 month ago in anticipation of a hip arthroplasty. On routine blood work, he was found to have a hemoglobin of 9.3. Per the recent PCP note, the patient apparently has a slightly low hemoglobin at his baseline, but this new result was a 3 g drop over the past 4 months. Iron studies were significant for iron 17, ferritin 541, and saturation 6%. Folate was normal. B12 was greater than 1500. Peripheral smear showed moderate normocytic, hyperchromic anemia with minimal reticulocytosis. The patient was started on oral iron supplementation and states that his most recent level had returned up around 11. EGD and colonoscopy were ordered and performed at [facility]. These records are not currently available, but the patient states that Functional Status Date Functional Assessmen t No Information Instructions Date Instruction Additional Infor mation No Information Assessments Type Assessment Date No Information Patient Care Teams Name Effective Dates (start - stop) Status Members No Information
--- OUTSIDE RECORDS SUMMARY | 2019-07-10 10:55 | XMS_ITS | Continuity of Care Document ---
Author Organization [facility] Address [address] [address] [place] [address] Phone Care Team Providers Care Consumer Affairs Manager Name Role Phone Octavia Reyes Unavailable Unavailable [...] Diagnoses Date Provider Providers Copied on Encounter [facility], [address] [address], [place], [place], [id number], tel:[phone] [facility] No Information 0 Laatsch PAC Octavia. [address] [facility], [facility] [address], [place], [address], [place]. tel:[phone] Kel Moffett MD. tel:[phone] [facility], [address] [address], [place], [place], [address], [place] tel:[phone] [facility] Small bowel lesion 0 Janetatsch PAC Octavia. [address] [place] [address], [facility] [address], [place], [address], [place]. tel:[phone] Kel Moffett MD, [address] [place] [address], [address]. tel:[phone] [facility], [address] [address], [place], [place], [address], [place] tel:[phone] [facility] Iron deficiency anemia, unspecified Feb-2 0 Lauren Ariza. [address] [facility], [facility] [address], [place], [address], [place]. tel:[phone] Kel Mofftet MD. tel:[phone] ng Provider: Octavia AVILA, [facility] [place] [address], [address]. tel:[phone] [facility], [address] [address], [place], [place], [address], [place] tel:[phone] [facility] Iron deficiency anemia, unspecified iron deficiency anemia typeDysphagi a, unspecified type Feb-2 6 0 Laatsch PAC Octavia. [address] [place] [address], [facility] [address], [place], [address], [place]. tel:[phone] Kel Moffett MD. tel:[phone] ng Provider: Referral Self, USE FOR SELF REFERRALS. Offic/outpt E&m New Mod Sever [facility], [address] [address], [place], [place], [address], tel:[phone] [facility] GI Symptoms or Concerns (chief complaint) Iron deficiency anemia, unspecified iron deficiency anemia typeRUQ pain May- 0 Blade Dudley. [address] [facility], [address], [place], [place], [address], . tel:[phone] Kel Moffett MD. tel:[phone] ng Provider: Chico Hurtado, [address] [place] [address], [address]. tel:[phone] [facility], [address] [address], [place], [place], [address], tel:[phone] No Information 0 No Information Referring Provider: Chico Hurtado, [address] [place] [address], [address]. tel:[phone] Family History Family Member Type Diagnosis Age [...] ional interface ; Source: Other Registry Novel [id number], all formulations administered Note: [facility] bi-direct ional [...] Registry Payers Payer name Insurance type Covered alliance party ID Authoriza tivladimir(s) [employer] Medicare MB [id number] Social History Type Description Quantity Date Captured [...] and colonoscopy were ordered and performed at [facility]. These records are not currently available, but the patient states that Functional Status Date Functional Assessmen t No Information Instructions Date Instruction Additional Infor mation No Information Assessments Type Assessment Date No Information Patient Care Teams Name Effective Dates (start - stop) Status Members No Information
--- OUTSIDE RECORDS SUMMARY | 2024-09-26 10:00 | XMS_ITS | Encounter Summary ---
Author Organization [facility] Address [address] [place] [address] Care Team Providers Care Bill Poster Installer Name Role Phone Elsewhere, Pcp Primary Care Provider Unavailabl e Reason for Referral * Outpatient (Routine) - Authorized Specialty Diagnoses / Procedures Referred By Contac t Referred To Contact Diagnoses Pericarditis Acute (HCC) Atrial Fibrillation Paroxysmal (HCC) Procedures ECG 12 Lead SD EKG 12 LEAD W I&R Devyn Reid M.D. [address] [place] [address] Phone: tel: [facility] Region Referral ID Status Reason Start Date Expiration Date V isits Requested Visits Authorized [id number] Authorized 09/26/2024 12/27/2025 1 1 * Outpatient (Routine) - Closed Specialty Diagnoses / Procedures Referred By Contac t Referred To Contact Diagnoses Pericarditis Acute (HCC) Procedures ECG 12 Lead SD EKG 12 LEAD W I&R Devyn Reid M.D. [address] [place] [address] Phone: tel: fax: [facility] Region Referral ID Status Reason Start Date Expiration Date Visits Re quested Visits Authorized [id number] Closed 09/26/2024 12/27/2025 1 1 Reason for Visit * Reason Comments Follow-up * Outpatient (Routine) - Closed Specialty Diagnoses / Procedures Referred By Octavia mcclain Referred To Contact Cardiovascular Disease Devyn Reid M.D. [address] [place] [address] Phone: tel: fax: [facility] Region Referral ID Status Reason Start Date Expiration Date Visits Re quested Visits Authorized [id number] Closed 07/25/2023 01/23/2025 1 1 Encounter Details Date Type Department Care Team (Latest Contact Info) Description 09/26/2024 10:00 AM CDT Office Visit Department of Cardiovascular Diseases in [place], [place] [address] [place] [address] Devyn Reid M.D. [address] [place] [address] Pericarditis Acute (HCC) (Primary Dx); Atrial Fibrillation Paroxysmal (HCC) Social History Tobacco Use Types Packs/Day Years [...] often do you attend chur ch or yarsani services? 1 to 4 times per year [...] Answer Date Recorded PHQ-2 Score 0 10/01/2018 [facility] [place] of Occupat ional Health - Occupational Stress [...] Master's degree (e.g., MA, MS, Jing, MEd, WALLPAPER INSPECTOR, GIANFRANCO) 01/21/2019 Sex and Gender Information Value Date Recorded Sex Assigned at Male 02/20/2020 4:49 PM CDT Legal Sex Male 5:13 AM PROJECT SURVEYOR Gender Identity Male 03/14/2018 12:28 PM PROJECT SURVEYOR Sexual Orientation Bisexual 02/20/2020 4: 48 PM CDT documented as of this encounter Last Filed Vital Signs Vital Sign Reading Time Taken Comments Blood Pressure 106/72 09/26/2024 10:20 AM CDT Pulse 90 09/26/2024 10:20 AM CDT Temperature - - Respiratory Rate - - Oxygen Saturation 96% 09/26/2024 10: 20 AM CDT Inhaled Oxygen Concentration - - Weight 80.3 kg (176 lb 14.7 oz) 025 10:20 AM CDT Height - - Body Mass Index 25.85 11/13/2023 2:26 PM CDT documented in this encounter Plan of Treatment Upcoming Encounters Date Type Department Care Team (Latest Contact Info) Description 10/03/2024 11:30 AM CDT Appointment Department of Laboratory Medicine in [place], [place] [address] [place] [address] Devyn Reid M.D. [address] [place] [address] 11/21/2024 1:30 PM CDT Appointment Department of Cardiovascular Diseases in [place], [place] [address] [place] [address] Devyn Reid M.D. [address] [place] [address] Discharge Disposition: Home or Self Care Scheduled Orders Name Type Priority Associated Diagnoses Orde r Schedule Thyroid Function [place] Lab Routine Pericarditis Acute (HCC) Expected: 10/03/2024, Expires: 09/26/2025 CRP (C-Reactive Protein) Lab Routine Pericarditis Acute (HCC) Expected: 10/03/2024, Expires: 12/27/2025 ECG 12 Lead ECG Routine Pericarditis Acute (HCC) Atrial Fibrillation Paroxysmal (HCC) Expected: 10/03/2024, Expires: 12/27/2025 documented as of this encounter Results * ECG 12 Lead (09/26/2024 11:05 AM CDT) Ventricular Rate ECG/Min 87 BPM MUSE QRSD Interval 80 ms MUSE QT Interval 342 ms MUSE QTC Interval 411 ms MUSE R [place] 21 degrees MUSE T Wave [place] -4 degrees MUSE 09/26/2024 11:0 5 AM CDT 09/26/2024 11:21 AM CDT Impressions MUSE - 09/26/2024 11:21 AM CDT Atrial fibrillation with premature ventricular or aberrantly conducted complexes Nonspecific ST and T wave abnormality When compared with ECG of 27-Mar-2024 09:29, Atrial fibrillation has replaced Sinus rhythm Vent. rate has increased by 31 bpm Significant changes have occurred Reviewed by HORTENSIA Kitchen Narrative Procedure Note Lc Park M.D. - 09/26/2024 IMPRESSION: Atrial fibrillation with premature ventricular or aberrantly conducted complexes Nonspecific ST and T wave abnormality When compared with ECG of 25-Jul-2023 09:29, Atrial fibrillation has replaced Sinus rhythm Vent. rate has increased by 31 bpm Significant changes have occurred Reviewed by HORTENSIA Kitchen us Devyn Reid M.D. ECG ORDERABLES Final Resu lt MUSE NA documented in this encounter Visit Diagnoses Diagnosis Pericarditis Acute (HCC)- Primary Atrial Fibrillation Paroxysmal (HCC) Pericarditis Acute (HCC) documented in this encounter Care Teams Bill Poster Installer Relationship Specialty Start Date End Date Elsewhere, Pcp PCP - General Internal Medicine 08/29/21 documented as of this encounter
--- OUTSIDE RECORDS SUMMARY | 2024-09-26 11:06 | XMS_ITS | Encounter Summary ---
Author Organization [facility] Address [address] [place] [address] Care Team Providers Care Uke Driver Name Role Phone Elsewhere, Pcp Primary Care Provider Unavailabl e Reason for Referral * Outpatient (Routine) - Closed Specialty Diagnoses / Procedures Referred By Contac t Referred To Contact Diagnoses Pericarditis Acute (HCC) Procedures ECG 12 Lead ND EKG 12 LEAD W I&R Devyn Reid M.D. [address] [place] [address] Phone: tel: fax: [facility]HONATH[facility] Referral ID Status Reason Start Date Expiration Date Visits Re quested Visits Authorized [id number] Closed 09/26/2024 12/27/2025 1 1 Reason for Visit * Outpatient (Routine) - Closed Specialty Diagnoses / Procedures Referred By Contac t Referred To Contact Diagnoses Pericarditis Acute (HCC) Procedures ECG 12 Lead ND EKG 12 LEAD W I&R Deyvn Reid M.D. [address] [place] [address] Phone: tel: [facility] Region Referral ID Status Reason Start Date Expiration Date Visits Re quested Visits Authorized [id number] Closed 09/26/2024 12/27/2025 1 1 Encounter Details Date Type Department Care Team (Latest Contact Info) Description 09/26/2024 11:06 AM CDT Hospital Encounter Department of Laboratory Medicine in [place], [place] 300 [place] [address] Devyn Reid M.D. [address] [facility] [place] [address] Pericarditis Acute (HCC) Social History Tobacco Use Types Packs/Day [...] week 11/04/2019 How often do you attend [facility] or mormonism services? 1 to 4 times per year [...] Answer Date Recorded PHQ-2 Score 0 10/01/2018 [facility] [place] of Occupat ional Health - Occupational Stress [...] Master's degree (e.g., MA, MS, Jing, MEd, LITHOGRAPH PRESS OPERATOR, GIANFRANCO) 01/21/2019 Sex and Gender Information Value Date Recorded Sex Assigned at Male 02/20/2020 4:49 PM CDT Legal Sex Male 5:13 AM LAMINATION SPINNER Gender Identity Male 03/14/2018 12:28 PM LAMINATION SPINNER Sexual Orientation Bisexual 02/20/2020 4: 48 PM CDT documented as of this encounter Plan of Treatment Upcoming Encounters Date Type Department Care Team (Latest Contact Info) Description 10/03/2024 11:30 AM CDT Appointment Department of Laboratory Medicine in [address] [address] Devyn Reid M.D. [address] [place] [address] 11/21/2024 1:30 PM CDT Appointment Department of Cardiovascular Diseases in [address] [address] Devyn Reid M.D. [address] [place] [address] Discharge Disposition: Home or Self Care documented as of this encounter Procedures Procedure Name Priority Date/Time Associated Diagnosis Comments ECG Routine 09/26/2024 11:05 AM CDT Pericarditis Acute (HCC) documented in this encounter Results * ECG 12 Lead (09/26/2024 11:05 AM CDT) Ventricular Rate ECG/Min 87 BPM MUSE QRSD Interval 80 ms MUSE QT Interval 342 ms MUSE QTC Interval 411 ms MUSE R [place] 21 degrees MUSE T Wave [place] -4 degrees MUSE 09/26/2024 11:0 5 AM [...] changes have occurred Reviewed by HORTENSIA Kitchen Devyn Reid M.D. ECG ORDERABLES Final Resu lt MUSE NA documented in this encounter Visit Diagnoses Diagnosis Pericarditis Acute (HCC) documented in this encounter Care Teams Uke Driver Relationship Specialty Start Date End Date Elsewhere, Pcp PCP - General Internal Medicine 08/29/21 documented as of this encounter
--- OUTSIDE RECORDS SUMMARY | 2024-09-26 18:59 | XMS_ITS | Clinical Summary ---
Author Organization [facility] Address [address] [place] [address] Care Team Providers Care Sat Math Tutor Name Role Phone Elsewhere, Pcp Primary Care Provider Unavailabl e Source Comments Patient records contain information from all sites at [facility]. For routine questions regarding patient records, call [phone] during business hours, M-F 8:00 AM - 5:00 PM Central Time. Record requests for emergency care only can be directed to [phone] at any time.[facility] Allergies Active Allergy Reactions Criticality Noted Date Comments Amoxicillin Rash 07/07/2006 Atorvastatin Headache 09/28/2022 House Dust Mite Other (see comments) 05/19/2014 Runny nose, itchy eyes, etc Penicillin V Rash High 06/02/2020 Pollen Extracts Other (see comments) 05/19/2014 Runny nose, itchy eyes, etc Medications * This document contains information received from the source organization and may not represent a complete record from that organization. MAGNESIUM ORAL Take 400 mg by mouth daily. 10/11/19 14 Active cyanocobalami n (VITAMIN B12) 1,[address] under the tongue. 11/19/19 16 Active cholecalcifer ol (VITAMIN D3) 2,000 Unit tablet Take 2,000 Units by mouth. 05/03/19 16 Active ascorbic acid, vitamin C, (VITAMIN C) 1,000 mg tablet Take 1,000 mg by mouth. 02/20/20 18 Active acetaminophen (TYLENOL) 500 mg tablet as needed. 10/01/19 20 Active fluticasone propionate (FLONASE) 50 mcg/actuation nasal spray INSTILL 2 SPRAYS TO BOTH NOSTRILS ONCE DAILY. 01/07/20 Active azelastine (ASTELIN) 137 mcg/spray (0.1 %) nasal spray 06/03/19 Active cephalexin (KEFLEX) 500 mg capsule Take 2,000 mg by mouth once. 4 hours proir to dental appointment 09/29/19 Active traZODone (DESYREL) 50 mg tablet Take by mouth at bedtime as needed. 07/07/19 Active ipratropium (Atrovent) 42 mcg (0.06 %) nasal spray Administer 2 sprays into each nostril as needed. Active UNABLE TO FIND Take 1 each by mouth at bedtime. Med Name: 5HTP Active pravastatin (PravachoL) 20 mg tablet Take 1 tablet (20 mg total) by mouth at bedtime. 30 tablet 11 04/03/20 24 025 Active colchicine (Colcrys) 0.6 mg tablet Take 1 tablet (0.6 mg total) by mouth 2 (two) times a day. 60 tablet 09/27/19 25 Active predniSONE (Deltasone) 20 mg tablet Take 1 tablet (20 mg total) by mouth daily. Date 10 mg daily for 5 days and then 5 mg daily and stop. 09/27/19 25 Active apixaban (Eliquis) 5 mg tablet Take 1 tablet (5 mg total) by mouth 2 (two) times a day. Stop aspirin and ibuprofen. 60 tablet 1 09/27/19 25 Active aspirin 81 mg chewable tablet Chew 81 mg. 04/17/20 22 025 Discontinued(Re order) predniSONE (Deltasone) 20 mg tablet Take 1 tablet by mouth daily. 09/24/19 25 025 Discontinued colchicine (Colcrys) 0.6 mg tablet Take 1 tablet (0.6 mg total) by mouth daily. 60 tablet 09/27/19 25 025 Discontinued aspirin 81 mg chewable tablet Chew 1 tablet (81 mg total) daily. 09/27/19 25 025 Discontinued ibuprofen 600 mg tablet Take 1 tablet (600 mg total) by mouth every 8 (eight) hours. Use 3 times a day for 5 days then decrease to twice daily for 5 days and then daily for 5 days and stop. 45 tablet 09/27/19 25 025 Discontinued Active Problems Problem Noted Date Diagnosed Date [...] Encounters Date Type Department Care Team Description 09/26/2024 11:06 AM CDT Hospital Encounter Department of Laboratory Medicine in [address] [address] Devyn Reid M.D. Pericarditis Acute (HCC) 09/26/2024 10:00 AM CDT Office Visit Department of Cardiovascular Diseases in [address] [address] Devyn Reid M.D. Pericarditis Acute (HCC) (Primary Dx); Atrial Fibrillation Paroxysmal (HCC) 09/26/2024 Results Follow-Up Department of Cardiovascular Diseases in [place], [place] [address] [address] Devyn Reid M.D. ECG 12 Lead 09/23/2024 Clinical Communication Department of Cardiovascular Diseases in [place], [place] [address] [address] Devyn Reid M.D. 09/16/2024 Clinical Communication Department of Cardiovascular Diseases in [place], [place] [address] [address] Devyn Reid M.D. Return Call Request 07/08/2024 Results Follow-Up Department of Cardiovascular Diseases in [place], [place] [address] [address] Devyn Reid M.D. Lipid Panel 07/08/2024 Clinical Communication Department of Cardiovascular Diseases in [place], [place] [address] [place] [address] Devyn Reid M.D. Results 07/01/2024 12:50 PM DIRECTOR PHARMACY SERVICES - 07/01/2024 11:59 PM DIRECTOR PHARMACY SERVICES Hospital Encounter Department of Laboratory Medicine in [place], [place] [address] [facility] [place] [address] Devyn Reid M.D. Hyperlipidemia Discharge Disposition: Home or Self Care from Last 3 Months Immunizations Immunization Administration Dates Next Due HZV (ZOSTAVAX) 06/15/2008 [...] Father shaina núñez Heart disease Father shaina nñúez Colon cancer Maternal Grandfather gabriela Prostate cancer [...] often do you attend chur ch or moravian services? 1 to 4 times per year [...] Answer Date Recorded PHQ-2 Score 0 10/01/2018 [facility] of Occupat ional Health - Occupational Stress [...] Master's degree (e.g., MA, MS, Jing, MEd, MIRROR DEPARTMENT SUPERVISOR, GIANFRANCO) 01/21/2019 Sex and Gender Information Value Date Recorded Sex Assigned at Male 02/20/2020 4:49 PM CDT Legal Sex Male 5:13 AM DIRECTOR PHARMACY SERVICES Gender Identity Male 03/14/2018 12:28 PM DIRECTOR PHARMACY SERVICES Sexual Orientation Bisexual 02/20/2020 4: 48 PM CDT Last Filed Vital Signs Vital Sign Reading Time Taken Comments Blood Pressure 106/72 09/26/2024 10:20 AM CDT Pulse 90 09/26/2024 10:20 AM CDT Temperature 36.2 C (97.2 F) 11/13/2023 2:26 PM CDT Respiratory Rate - - Oxygen Saturation 96% 09/26/2024 10: 20 AM CDT Inhaled Oxygen Concentration - - Weight 80.3 kg (176 lb 14.7 oz) 025 10:20 AM CDT Height 176.2 cm (5' 9.37) 11/13/2023 2:26 PM CD T Body Mass Index 25.85 11/13/2023 2:26 PM CDT Plan of Treatment Upcoming Encounters Date Type Department Care Team (Latest Contact Info) Description 10/03/2024 11:30 AM CDT Appointment Department of Laboratory Medicine in [place], [place] [address] [place] [address] Devyn Reid M.D. [address] [place] [address] 11/21/2024 1:30 PM CDT Appointment Department of Cardiovascular Diseases in [place], [place] [address] [place] [address] Devyn Reid M.D. [address] [place] [address] Discharge Disposition: Home or Self Care Health Maintenance Due Date Last Done Comments IPV Vaccines (2 of 3 - Adult catch-up series) 05/11/2006 04/13/2006 Depression Screening (Annual PHQ-2) 04/30/2024 Fall Risk Screen (Annual) 04/30/2024 DTaP,Tdap,and Td Vaccines (3 - Td or Tdap) 04/12/2034 04/12/2024, 03/25/2014 Hepatitis A Vaccines Completed 04/24/2007, 04/13/20 Pneumococcal vaccine (50+ years) Completed 05/29/2017, 05/11/2015, 03/19/2006 Zoster Vaccines Completed 08/14/2018, 06/28, 06/04/2018, Additional history exists Colonoscopy Discontinued 06/02/2019, 07/27/2015 RSV vaccine - (32-36 weeks) or 60+ years Completed 02/27/2023 Cologuard Discontinued 09/17/2023 Colorectal Cancer Surveillance Discontinued Influenza Vaccine Completed 01/08/2024, , 01/11/2022, Additional history exists COVID-19 Vaccine Completed 07/18/2024, , 02/09/2023, Additional history exists CT Colonography Discontinued HPV Vaccines Aged Out No longer eligi ble based on patient's age to complete this topic Medical Devices Implanted Type Area Barrel Lathe Operator Inside Device Identifier Shelf Expiration Date Model / Serial / Lot Hip Implant Hip Implant Left: Hip Ocular Lens Ocular Lens Eye Description:Both eyes. Shoulder Implant Shoulder Implant Right: Shoulder Procedures Procedure Name Priority Date/Time Associated Diagnosis Comments ECG Routine 09/26/2024 11:05 AM CDT Pericarditis Acute (HCC) LIPID PANEL, S Routine 07/01/2024 1:08 PM DIRECTOR PHARMACY SERVICES Hyperlipidemia from Last 3 Months Results * ECG 12 Lead (09/26/2024 11:05 AM CDT) Ventricular Rate ECG/Min 87 BPM MUSE QRSD Interval 80 ms MUSE QT Interval 342 ms MUSE QTC Interval 411 ms MUSE R [place] 21 degrees MUSE T Wave [place] -4 degrees MUSE 09/26/2024 11:0 5 AM [...] ECG ORDERABLES Final Resu lt MUSE NA * Lipid Panel (07/01/2024 1:08 PM DIRECTOR PHARMACY SERVICES) Triglycerides 51 mg/dL 07/01/2024 6:41 PM DIRECTOR PHARMACY SERVICES OWAT Comment: ----REFERENCE VALUE---- Normal: <150 mg/dL Borderline High: 150-199 mg/dL High: 200-499 mg/dL Very High: > or =500 mg/dL Cholesterol, Total 136 mg/dL 2024 6:41 PM DIRECTOR PHARMACY SERVICES OWAT Comment: ----REFERENCE VALUE---- Desirable: < 200 mg/dL Borderline High: 200 - 239 mg/dL High: > or = 240 mg/dL Cholesterol, LDL, Calculated 76 mg/dL 07/01/2024 6:41 PM DIRECTOR PHARMACY SERVICES OWAT Comment: ----REFERENCE VALUE---- Desirable: <100 mg/dL Above Desirable: 100-129 mg/dL Borderline High: 130-159 mg/dL High: 160-189 mg/dL Very High: >=190 mg/dL ----ADDITIONAL INFORMATION---- LDL cholesterol calculated using the Jay/NIH equation. Cholesterol, HDL 49 >=40 mg/dL 07/02/19 6:41 PM DIRECTOR PHARMACY SERVICES OWAT Cholesterol, Non-HDL, Calculated 87 mg/dL 07/01/2024 6:41 PM DIRECTOR PHARMACY SERVICES OWAT Comment: ----REFERENCE VALUE---- Desirable: <130 mg/dL Above Desirable: 130-159 mg/dL Borderline High: 160-189 mg/dL High: 190-219 mg/dL Very High: > or =220 mg/dL Fasting (8 HR or more) No 07/01/2024 1:08 PM DIRECTOR PHARMACY SERVICES OWAT Blood (Blood, Venous) 07/01/2024 1:08 PM DIRECTOR PHARMACY SERVICES 07/01/2024 5:50 PM DIRECTOR PHARMACY SERVICES us Devyn Reid M.D. LAB BLOOD ADD-ON Final Res ult [facility] [address] [place] [address], [place] OWAT [facility] in [place] [address] [place] [address] from Last 3 Months Insurance MEDICARE [facility] [place] [address] Care Teams Sat Math Tutor Relationship Specialty Start Date End Date Elsewhere, Pcp PCP - General Internal Medicine 08/29/21
--- OUTSIDE RECORDS SUMMARY | 2024-09-26 19:00 | XMS_ITS | Encounter Summary ---
Author Organization [facility] Address [address] [place] [address] Care Team Providers Care Internet Media Planner Name Role Phone Elsewhere, Pcp Primary Care Provider Unavailabl e Encounter Details Date Type Department Care Team (Latest Contact Info) Description 09/23/2024 Clinical Communication Department of Cardiovascular Diseases in [place], [place] [address] [place] [address] Devyn Reid M.D. [address] [place] [address] Social History Tobacco Use Types Packs/Day [...] often do you attend chur ch or hindu services? 1 to 4 times per year [...] Answer Date Recorded PHQ-2 Score 0 10/01/2018 [facility] of Occupat ional Health - Occupational Stress [...] Master's degree (e.g., MA, MS, Jing, MEd, SUPERVISOR BOILER REPAIR, GIANFRANCO) 01/21/2019 Sex and Gender Information Value Date Recorded Sex Assigned at Male 02/20/2020 4:49 PM CDT Legal Sex Male 5:13 AM SPLITTER HAND Gender Identity Male 03/14/2018 12:28 PM SPLITTER HAND Sexual Orientation Bisexual 02/20/2020 4: 48 PM CDT documented as of this encounter Plan of Treatment Upcoming Encounters Date Type Department Care Team (Latest Contact Info) Description 10/03/2024 11:30 AM CDT Appointment Department of Laboratory Medicine in [address] [phone] Devyn Reid M.D. [address] [facility] [place] [address] 11/21/2024 1:30 PM CDT Appointment Department of Cardiovascular Diseases in [place], [place] [address] [facility] [place] [place] [address] Devyn Reid M.D. 300 [place] [address] Discharge Disposition: Home or Self Care documented as of this encounter Visit Diagnoses Not on filedocumented in this encounter Care Teams Internet Media Planner Relationship Specialty Start Date End Date Elsewhere, Pcp PCP - General Internal Medicine 08/29/21 documented as of this encounter
--- OUTSIDE RECORDS SUMMARY | 2024-09-26 19:00 | XMS_ITS | Data Portability ---
Author Organization [place] [facility] Address [address] [facility] [address] [place] [address] Care Team Providers Care De Icer Name Role Phone KATHRYN DIAZ Referring Provider [...] By Organization Details Last Modified Time 07/25/2022 [id number] Three Jaw Exercises Not available 07/31/2022 14:31:02 Reason for Referral Physical Therapist Referral for Myofascial pain right tmj djd, masticatory/cervical myofascial pain Referring Physician: Brenda Rodriguez, Pain Management, Encounter Date: 07/28/2021 Results Created Date Observation Date Name Description Value Unit Range Abnormal Flag Note LastModifiedBy Organization Detail LastModifiedTime 07/08/1907/07/2021 oral appli ance prepa ratio n* Type of appliance maxill silverio stabil izatio n applia nce Not Available [place] [address] [facility] [address], [place], [address], 07/07/2021 11:38:35 Result Notes None recorded. 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 654965816 Active 2018 right TMJ VANCE Walker [facility] 9 12:11:01 Pain of temporom andibula r joint 02174540 Active 2018 Right TMJ VANCE Walker [facility] 9 12:11:14 Myofasci al pain 206427883 Active 2018 masticato ry Brenda Frances yusuf [facility] 9 12:11:42 Temporom andibula r joint crepitus 137887831 Active 2021 Brenda Frances yusuf [facility] 2 11:38:21 Referred otalgia 31010716 Active 2022 Resolved ROSA LOPEZ BDS, [place] [address] [facility] [address], [place], [address], [facility] 3 12:44:55 Problem Notes None recorded. Procedures Surgical History Date Name Laterality Status Provider Name and Address Organization Details Recorded Time 07/29/19 22 Oral appliance completed Rachel Salvador [facility] 07/28/2021 16:13:27 12/26/19 19 Orthopantogram completed Brenda Rodriguez [facility] 12/25/2018 12:10:05 Prostatectomy (turp) completed [facility] 12/25/2018 10:54:41 Hernia repair w/mesh completed [facility] [place] [facility] 12/25/2018 10:54:48 Knee arthroscopy/surger y completed [facility] [place] [facility] 12/25/2018 10:54:56 Xcapsl ctrc rmvl cplx wo ecp completed [facility] [place] [facility] 12/25/2018 10:55:15 Shoulder Surgery completed Huan Diallo [facility] 07/06/2021 15:51:13 Hip arthroscopy dx completed Huan Diallo [facility] 07/06/2021 15:51:22 Knee arthroscopy/surger y completed [facility] [place] [facility] 07/06/2021 15:51:31 Hip arthroscopy dx completed [facility] 07/06/2021 15:51:45 Imaging Results None recorded. Procedure Notes None recorded. Medical Equipment None Reported. Allergies Allergen ID Allergen Name Allergen Category Reaction Reaction Severity Criticality Documentation Date Start Date Code Code System Note Provider Name and Address Organization Details Recorded Time 40947 amoxicill in medicatio n Not available Not available Not available 12/25/2018 723 RxNorm Huan yusuf VANCE [facility] 9 10:48:38 58383 house dust mite environme nt Not available Not available Not available 12/25/2018 44029 UNK Huan yusuf [facility] 9 [...] index (BMI) Body weight Heart rate Systolic blood pressure Diastolic blood pressure Provider Name and Address Organization Details Last Updated DateTime 3 175.26 cm 23 kg/m2 16918.4 1 g 50 /min 120 mm[Hg] 49 mm[Hg] Rachelzakia Vogelreginaldo [facility] 3 12:35:15 Date Recorded Body temperature Heart rate Systolic blood pressure Diastolic blood pressure Provider Name and Address Organization Details Last Updated DateTime 07/28/2021 97 [degF] 62 /min 92 mm[Hg] 64 mm[Hg] Rachel Lelareginaldo [facility] 2 16:10:54 Date Recorded Body height Body temperature Heart rate Systolic blood pressure Diastolic blood pressure Provider Name and Address Organization Details Last Updated DateTime 2 175.26 cm 97.2 [degF] 65 /min 92 mm[Hg] 66 mm[Hg] Rachel Lelareginaldo [facility] 2 16:11:39 Date Recorded Body height Heart rate Systolic blood pressure Diastolic blood pressure Provider Name and Address Organization Details Last Updated DateTime 10/26/2022 175.26 cm 56 /min 101 mm[Hg] 60 mm[Hg] Huan Diallo [facility] 10/26/2022 12:35:46 Date Recorded Body height Heart rate Systolic blood pressure Diastolic blood pressure Provider Name and Address Organization Details Last Updated DateTime 01/12/2022 175.26 cm 65 /min 100 mm[Hg] 65 mm[Hg] Ibeth Bañuelos [facility] 01/12/2022 15:36:09 Social History Question Answer Notes LastModified by Organizat ion Details LastModified Time Tobacco Smoking Status Never Smoker [facility] 12/25/2018 [...] N Premenstrual syndrome (PMS) N MRSA N Head Trauma/Injury N Emphysema N Irritable bowel syndrome N Glaucoma N Lung Disease N COPD N Hypothyroidism N Depression N Pneumonia N Pacemaker N Obstructive Sleep [...] Meningitis N Pancreatic disease N Heart Attack (PR) N Stomach Ulcers N Back pain N [...] virus, quadrivalent, preservative 8 completed VANCE Louis [facility] 12/25/2018 10:52:31 Influenza, split virus, quadrivalent, preservative 1 completed VANCE Louis [facility] 07/06/2021 15:50:18 SARS-COV-2 (COVID-19) vaccine, UNSPECIFIED 1 completed VANCE Louis [facility] 07/06/2021 15:50:29 Past Encounters Encounter ID Performer Location Encounter Start Date Encounter Closed Date Diagnosis/Indication Diagnosis SNOMED-CT Code Diagnosis ICD10 Code Diagnosis Note [id number] RADHA JAMES [address] [place] [id number] 12/25/2018 10:33:04 12/25/2018 12:23:00 Pain of temporomandibular joint 95184298 M26.629 Right TMJ Osteoarthr itis of temporomandibular joint 963983777 M13.88 right TMJ Myofascial pain 43837772 9 M79.11 crm system administrator y [id number] RADHA JAMES [address] [place] [id number] 07/06/2021 15:00:31 07/06/2021 16:44:07 Osteoarthritis of temporomandibular joint 034135343 M13.88 right TMJ Myofascial pain 85025148 9 M79.11 crm system administrator y Pain of temporomandibular joint 35454197 M26.629 Right TMJ Temporoman dibular joint crepitus 697899032 M26.659 [id number] RADHA JAMES [address] [place] [id number] 07/28/2021 16:00:44 07/28/2021 16:40:20 Osteoarthritis of temporomandibular joint 730402324 M13.88 right TMJ Myofascial pain 96965632 9 M79.11 M79.12 crm system administrator y/cervical Temporoman dibular joint crepitus 357931284 M26.659 Pain of temporomandibular joint 15337411 M26.629 Right TMJ [id number] RADHA JAMES [address] [place] [id number] 08/30/2021 16:04:19 08/30/2021 16:43:01 Osteoarthritis of temporomandibular joint 106549801 M13.88 right TMJ Myofascial pain 87085962 9 M79.11 M79.12 crm system administrator y/cervical Temporoman dibular joint crepitus 951453479 M26.659 Pain of temporomandibular joint 55653315 M26.629 Right TMJ [id number] RADHA JAMES [address] [place] [id number] 01/12/2022 15:32:42 01/12/2022 17:25:50 Osteoarthritis of temporomandibular joint 458599890 M13.88 right TMJ Myofascial pain 57286844 9 M79.11 M79.12 crm system administrator y/cervical Temporoman dibular joint crepitus 560477301 M26.659 Pain of temporomandibular joint 86763559 M26.629 Right TMJ [id number] BATOOL LOPEZ BDS, [place] More e [address] [place] [id number] 07/25/2022 12:30:51 07/25/2022 13:56:39 Osteoarthritis of temporomandibular joint 924115265 M26.643 Myofascial pain 12704408 9 M79.11 M79.12 Pain of temporomandibular joint 91731195 M26.623 [id number] BATOOL LOPEZ BDS, [place] More [address] [place] [address] 10/26/2022 12:30:12 10/26/2022 13:50:56 Osteoarthritis of temporomandibular joint 832822374 M26.643 Pain of temporomandibular joint 25148490 M26.623 Myofascial pain 89315176 9 M79.11 M79.12 Referred otalgia 4725137 8 H92.03 resolved Health Concerns Section Related Observation LastModified by Organization Detai ls LastModified Time None Recorded Concern Status LastModified by Organization Details LastModified Time None Recorded Advance Directives Directive None Recorded Payers Encounter Date Sequence Insurance Name Policy Number Policy East Covered Member ID East Member ID Guarantor Name 07/28/2021 1 [employer] (MEDICARE REPLACEMENT/ ADVANTAGE - PPO) [id number] Pranay Azchendo 08/30/2021 1 [employer] (MEDICARE REPLACEMENT/ ADVANTAGE - PPO) [facility] [id number] Pranay Azchendo 01/12/2022 1 [employer] (MEDICARE REPLACEMENT/ ADVANTAGE - PPO) Pranay W [place] [id number] Pranay Azchendo 07/25/2022 1 [employer] (MEDICARE REPLACEMENT/ ADVANTAGE - PPO) Pranay W Azchendo [id number] Pranay Azchendo 10/26/2022 1 [employer] (MEDICARE REPLACEMENT/ ADVANTAGE - PPO) Pranay W Azchendo [id number] Pranay [facility] Notes Date Note Type Note Provider Name and Address Organization Details Recorded Time text/html Jaw painReported bypatient.Onset:starte d 1 month(s) [...] his teeth, so he bought an OTC armored car guard that he has been wearing for a couple of months. Pranay states that he is no longer having the ear pain. VANCE Walker - [facility] 07/28/2021 16:49:15 [...] right-sided neck pain. He beings p/t in [place] this month. He states that his jaw feels loose in the morning when removing his splint. He said that it is difficult to explain, but something in the right masseter area feels loose. VANCE Walker - [facility] 08/30/2021 20:42:35 [...] again. He plans on going to to [employer] soon. Brenda yusuf, [facility] 01/14/2022 [...] treatment at this time. Pranay is seeing Kimmy Hoffmann for the first time today for his follow up with his splint. Pranay has been having a pain in his right ear and right sided neck pain for the last six months. Pranay has not been doing any home care or exercises. ROSA LOPEZ BDS, MS [address] [facility] [address], [place], [address], [facility] 07/31/2022 14:31:06 [...] a music group. ROSA LOPEZ BDS, [place] [address] [facility] [address], [place], [address], [facility] 10/26/2022 12:57:49
--- OUTSIDE RECORDS SUMMARY | 2024-09-26 19:00 | XMS_ITS | Encounter Summary ---
Author Organization [facility] Address [address] [place] [address] Care Team Providers Care Hunting And Fishing Guide Name Role Phone Elsewhere, Pcp Primary Care Provider Unavailabl e Encounter Details Date Type Department Care Team (Late st Contact Info) Description 09/26/2024 Results Follow-Up Department of Cardiovascular Diseases in [place], [place] [address] [place] [phone] Devyn Reid M.D. [address] [place] [address] ECG 12 Lead Social History Tobacco Use Types Packs/Day Years [...] often do you attend chur ch or confucianist services? 1 to 4 times per year [...] Answer Date Recorded PHQ-2 Score 0 10/01/2018 [facility] of Occupat ional Health - Occupational Stress [...] Master's degree (e.g., MA, MS, Jing, MEd, BODY CLEANER, GIANFRANCO) 01/21/2019 Sex and Gender Information Value Date Recorded Sex Assigned at Male 02/20/2020 4:49 PM CDT Legal Sex Male 5:13 AM REGISTER OF WILLS Gender Identity Male 03/14/2018 12:28 PM REGISTER OF WILLS Sexual Orientation Bisexual 02/20/2020 4: 48 PM CDT documented as of this encounter Plan of Treatment Upcoming Encounters Date Type Department Care Team (Latest Contact Info) Description 10/03/2024 11:30 AM CDT Appointment Department of Laboratory Medicine in [address] [address] Devyn Reid M.D. [address] [place] [address] 11/21/2024 1:30 PM CDT Appointment Department of Cardiovascular Diseases in [place], [place] [address] [facility] [place] [address] Devyn Reid M.D. 300 [place] [address] Discharge Disposition: Home or Self Care documented as of this encounter Visit Diagnoses Not on filedocumented in this encounter Care Teams Hunting And Fishing Guide Relationship Specialty Start Date End Date Elsewhere, Pcp PCP - General Internal Medicine 08/29/21 documented as of this encounter
--- OUTSIDE RECORDS SUMMARY | 2024-09-26 19:00 | XMS_ITS | Clinical Summary ---
Author Organization [facility] Address [address] [address] Care Team Providers Care Hand Spinner Name Role Phone Clinician, Not Found MD Primary Care Provider Un available Source Comments You are receiving this document as you are listed as the primary care provider,follow-up provider, or the patient has been referred to you for consultation.This is in compliance with the Medicare and[facility] EHR Incentive Program,which states Providers who transition their patient to another setting of careor provider of care or refers their patient to another provider of care shouldprovide summary care record for each transition of care or referral. 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 Pulse - - Temperature 36.4 C (97.5 [...] Address Personal/Family Self 1940 [address] [place] [address] * Guarantor: Pranay Núñez Account Type Relation to Patient Date of Phone Billing Address Personal/Family Self 1940 [address] [place] [address] * Guarantor: Pranay Núñez Account Type Relation to Patient Date of Phone Billing Address Personal/Family Self 1940 [address] [place] [address] [facility] MEDIC[facility] MANAGED CARE [facility] Care Teams Hand Spinner Relationship Specialty Start Date End Date Clinician, Not Found, [place] [address] PCP - General 10/10/13
--- OUTSIDE RECORDS SUMMARY | 2024-09-26 19:00 | XMS_ITS | Clinical Summary ---
Author Organization [email or web address] [facility] Address [address] [place] [address] Care Team Providers Care Geographic Information System Surveyor Name Role Phone Jaylon Davalos Mike CONTRERAS Unavailable Unavaila Bonita Hall NP Unavailable Estevan Courtney PsyD Unavailable Roberto Raza MD Unavailable [phone] Chico Osorio MD Primary Care Provider [phone] Allergies Active Allergy Reactions Criticality Noted Date [...] baseline 118-139, 115 on admission Followed by [facility] does not believe this is related to previous methotrexate as he has been off of it for some time 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 Continue to monitor while on IV antibiotics and enoxaparin ASHD (arteriosclerotic heart disease) 08/25/2022 Overview (04/08/2024): Followed by [facility], last visit 07/25/2023, Known presumed nonobstructive [...] is normal, no stenosis and moderate regurgitation, [id number] tricuspid regurgitation, mildly enlarged left atrium, 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, 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 Subjective tinnitus, right 03/02/2021 Status post right knee replacement 02/21/2021 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 Baseline HR 60 in clinic. Patient reports baseline HR in 50- 60s Currently stable, continue to monitor. Echocardiogram 01/22 as below Recommend outpatient follow up with [facility] for Ziopatch Asymmetric edema of both [...] since 2019, when weaned off. Followed by [facility], last visit 11/13/2023, plan to remain [...] Date Type Department Care Team Description 09/22/2024 Orders Only [facility] Scanner 1 scan: (1-Ord) NAHUM, SOFT TISSUE NECK, 09/22/2024 09/22/2024 Orders Only [facility] Scanner 1 scan: (1-Ord) NAHUM, XR CHEST 1V, 09/22/2024 09/22/2024 Nurse Triage [facility] [address] [place] [address] Chico Osorio MD Shoulder Pain/problem 09/11/2024 10:50 AM CDT Office Visit [facility] [address] [place] [address] Vahe Corrales MD Nose Problem (Runny nose, mucous in throat-discuss antihistamines); Medication Management (Sleep medication) 09/11/2024 Travel 08/26/2024 Telephone [facility] [address] [place] [address] Chico Osorio MD Questions (Lighting Fixture Installer. ) 07/15/2024 Telephone [facility] [address] [place] [address] Chico Osorio MD Questions (COVID-19 Vaccines.) from Last 3 Months Immunizations Immunization Administration Dates Next Due AMB Influenza, IIV3 (Age >=3 years)(Flu Clinic Only) 02/24/2008 COVID-19 vaccine (Pfizer-Bio NTech 30mcg/0.3mL) 12YO+ 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 07/26/2021 COVID-19 vaccine (Pfizer-Bio NTech 30mcg/0.3mL) MAIKEL FLETCHER 02/28/2021,06/22/2020,06/01/2020 Hepatitis A (Adult) 04/24/2007,04/13/2006 Inactivated Polio [...] on file Legal Sex Male 5:31 AM MARKETING SUPPORT COORDINATOR Gender Identity Not on file Sexual Orientation [...] CDT Respiratory Rate 16 04/02/2024 4:58 PM MARKETING SUPPORT COORDINATOR Oxygen Saturation 95% 09/11/2024 10:56 AM CDT Inhaled Oxygen Concentration - - Weight 74.8 kg (165 lb) 09/11/2024 10:56 AM CDT Height 176.5 cm (5' 9.49) 04/08/2024 4:16 PM CS T Body Mass Index 24.03 04/08/2024 4:16 PM MARKETING SUPPORT COORDINATOR Plan of Treatment Health Maintenance Due Date [...] this topic Medical Devices Implanted Type Area Tower Loader Operator Device Identifier Shelf Expiration Date Model / Serial / Lot Mesh Jonelle [id number] - [id number] Implanted:Qty: 1 on 12/25/2006 at [facility] Left: Inguinal DAVOL [id number] / / [id number] Procedures Procedure Name Priority Date/Time Associated Diagnosis Comments SCAN-CT INTERPRETATION 05/26/202 5 12:00 AM CDT SCAN-RADIOLOGY REPORT 09/22/2024 12:00 AM CDT from Last 3 Months Results * SCAN-RADIOLOGY REPORT (09/22/2024 12:00 AM CDT) Anatomical Region Laterality Modality Other us Scanner OTHER Final Result * SCAN-CT INTERPRETATION (09/22/2024 12:00 AM CDT) Anatomical Region Laterality Modality Other us Scanner OTHER Final Result from Last 3 Months Insurance * Guarantor: RaadPranay white Osiel Account Type Relation to Patient Date of Phone Billing Address Personal/Family Self 1940 [address] [place] [address] MEDICARE PART B HB ONLY [place] BL[place] ONLY [place] BLUE [place] ONLY * Guarantor: Pranay Núñez Account Type Relation to Patient Date of Phone Billing Address Retail Self [address] [place] [address] Advance Directives Documents on File Type Date Recorded Patient Oceanologist Expl anation Healthcare Directive 09/10/2008 * Full Code (Latest Code Status on File) Date Activated Date Inactivated Comments 05/23/2007 7:13 AM 05/23/2007 2:50 PM Care Teams Geographic Information System Surveyor Relationship Specialty Start Date End Date Chico Osorio MD [address] [place] [address] PCP - General Family Practice 05/30/19 Jaylon Davalos, [facility] Head Of Data 04/20/16 Bonita Alanis NP [address] [place] [address] Cardiovascular Disease 04/20/16 Estevan Courtney PsyD [address] [place] [address] Pulmonary Medicine 04/21/16 Roberto Raza MD [address] [facility] [address] [place] [address] Rheumatology Rheumatology 06/21/17
--- OUTSIDE RECORDS SUMMARY | 2024-09-26 19:00 | XMS_ITS | Clinical Summary ---
Author Organization [facility] Address [address] [facility] [place] [address] Care Team Providers Care Transportation Department Head Name Role Phone Chico Osorio MD Primary Care Provider [phone] Allergies Active Allergy Reactions Criticality Noted Date [...] on file Legal Sex Male 3:03 AM TURN OPERATOR Gender Identity Not on file Sexual Orientation [...] Plan of Treatment Not on file Insurance [facility] MEDICARE * Guarantor: CARE,URGENT Account Type Relation to Patient Date of Phone Billing Address Special Guarantor Other none (Work) [id number] [id number] Care Teams Transportation Department Head Relationship Specialty Start Date End Date Chico Osorio MD [address] [place] [address] PCP - General 07/04/19
--- OUTSIDE RECORDS SUMMARY | 2024-09-26 19:00 | XMS_ITS | Encounter Summary ---
Author Organization [facility] Address [address] [place] [address] Care Team Providers Care Lamination Assembler Name Role Phone Elsewhere, Pcp Primary Care Provider Unavailabl e Reason for Visit * Reason Onset Date Comments Return Call Request 09/16/2024 Encounter Details Date Type Department Care Team (Latest Contact Info) Description 09/16/2024 Clinical Communication Department of Cardiovascular Diseases in [place], [place] [address] [place] [address] Devyn Reid M.D. [address] [place] [phone] Return Call Request Social History Tobacco Use Types Packs/Day Years [...] often do you attend chur ch or uatsdin services? 1 to 4 times per year [...] Answer Date Recorded PHQ-2 Score 0 10/01/2018 [facility] [place] - Occupational Stress Questionnaire Answer Date Recorded [...] Master's degree (e.g., MA, MS, Jing, MEd, FOURDRINIER MACHINE TENDER, GIANFRANCO) 01/21/2019 Sex and Gender Information Value Date Recorded Sex Assigned at Male 02/20/2020 4:49 PM CDT Legal Sex Male 5:13 AM LAUNDRY MACHINE MECHANIC Gender Identity Male 03/14/2018 12:28 PM LAUNDRY MACHINE MECHANIC Sexual Orientation Bisexual 02/20/2020 4: 48 PM CDT documented as of this encounter Plan of Treatment Upcoming Encounters Date Type Department Care Team (Latest Contact Info) Description 10/03/2024 11:30 AM CDT Appointment Department of Laboratory Medicine in [address] [phone] Devyn Reid M.D. [address] [facility] [place] [address] 11/21/2024 1:30 PM CDT Appointment Department of Cardiovascular Diseases in [place], [place] [address] [facility] [place] [address] Devyn Reid M.D. [address] [facility] [address] Discharge Disposition: Home or Self Care documented as of this encounter Visit Diagnoses Not on filedocumented in this encounter Care Teams Lamination Assembler Relationship Specialty Start Date End Date Elsewhere, Pcp PCP - General Internal Medicine 08/29/21 documented as of this encounter
[2024-09-26 19:03] VITALS: BP 103/63; PULSE 92; RESP 16; TEMP 36.4; O2SAT 97; BMI 25.0
--- NOTE | 2024-09-26 20:33 | CRLHL7_ITS ---
For Patients: As a result of the Century Cures Act, medical imaging exams and procedure reports are released immediately into your electronic medical record. You may view this report before your referring provider. If you have questions, please contact your health care provider. INDICATION: SOB. TECHNIQUE: Chest 2 views. COMPARISON: 09/22/2024. FINDINGS: Cardiovascular and mediastinum: Heart size is normal. Unremarkable mediastinum. Atherosclerotic calcifications of the aortic arch. Lungs and pleural spaces: Likely mild bibasilar atelectasis.. No definite acute infiltrate. No definite pleural effusion. No pneumothorax. Bones and soft tissues: No significant findings. Right shoulder arthroplasty. IMPRESSION: No definite acute findings. Dictated by Oc Gordon MD @ 09/26/2024 10:59:42 PM (Electronically Signed)
[2024-09-26] MEDS: 0.9 % SODIUM CHLORIDE 1000 ml 1,000 ML IV (20:55)
[2024-09-26 20:59] VITALS: BP 104/66; BP 114/71; BP 117/67; PULSE 104; PULSE 92; PULSE 95; O2SAT 96
[2024-09-26 21:18] LABS: Basophils Percent Auto 0.7 % (0.0-3.0); Eosinophils Percent Auto 3.9 % (0.0-7.0); Hematocrit 37.2 % (37.0-53.0); Hemoglobin* 11.8 gm/dL (13.5-17.5); Immature Granulocytes Pct Auto 0.7 %; Mean Corpuscular HGB Conc 32 gm/dL (32-36); Mean Corpuscular Hemoglobin 30 pg (26-34); Mean Corpuscular Volume 94 fL (80-100); Monocytes Percent Auto 9.2 % (0.0-11.0); Neutrophils Percent Auto 59.5 % (42.0-72.0); Platelet Count* 127 K/uL (140-440); RDW Coefficient of Variation % 14.1 % (11.5-15.5); Red Blood Count 3.95 m/uL (4.30-5.90); White Blood Count* 4.34 K/uL (4.50-11.00)
[2024-09-26 21:19] LABS: Slide Review Reflex No
[2024-09-26 21:32] LABS: Chloride* 108 mmol/L (96-114); Sodium* 142 mmol/L (135-149)
[2024-09-26 21:33] LABS: Potassium* 3.9 mmol/L (3.6-5.1)
[2024-09-26 21:35] LABS: Blood Urea Nitrogen* 22 mg/dL (7-30); Creatinine* 0.8 mg/dL (0.5-1.5); Est. Creatinine Clearance* 57.79; Estimated Glomerular Filt Rate 88 ml/min
[2024-09-26 21:36] LABS: Anion Gap 5 mEq/L (7-15); Calcium* 9.1 mg/dL (8.4-10.6); Carbon Dioxide* 29 mmol/L (20-32); Glucose* 97 mg/dL (60-115); INR 1.13 (0.91-1.10); Magnesium* 2.2 mg/dL (1.5-2.6); Prothrombin Time 15.3 Seconds
[2024-09-26 21:37] LABS: Partial Thromboplastin Time* 31 Seconds (23-33)
[2024-09-26 21:38] LABS: Appearance Urine Clear (Clear); Bilirubin Urine Negative (Negative); Blood Urine Trace-intact (Negative); Color Urine Yellow (Yellow); Glucose Urine Negative (Negative); Ketones Urine Trace (Negative); Leukocyte Esterase Urine Negative (Negative); Nitrite Urine Negative (Negative); Protein Urine 1+ (Negative); Specific Gravity Urine 1.025 (1.000-1.030); WBC Urine 0-2 (0-5); pH Urine 5.5 (5.0-8.5)
[2024-09-26 21:39] LABS: C Reactive Protein* 7.8 mg/dL (0.5-1.0)
[2024-09-26 21:48] LABS: NT Pro B Type NatriureticPept* 4210 pg/mL (See Note)
[2024-09-26 21:49] LABS: PCR FLU A Negative PCR FLU A (Negative); PCR FLU B Negative PCR FLU B (Negative); PCR RSV Negative PCR RSV (Negative); SARS PCR* Negative SARS-CoV-2 (Negative)
--- NOTE | 2024-09-26 21:49 | ED.SOB ---
HPI - SOB/Dyspnea General Date Seen: 09/26/24 Chief Complaint: Shortness of Breath/Dyspnea Stated Complaint: shortness of breath Time Seen by Provider: 09/26/24 20:22 Source: patient, family, RN notes reviewed and old records reviewed Mode of arrival: ambulatory Limitations: no limitations History of Present Illness HPI Narrative: Patient is an 84-year-old gentleman who presents here with atrial fibrillation, he was seen 4 days ago and diagnosed with pericarditis, he was seen earlier today at the [facility] by Cardiology, and called that he was in atrial fibrillation, they recommended that he goes on a blood thinner and he started taking that today, he was also on colchicine, but that was stopped he went back on his prednisone which she when out of here on. He has no previous history of heart disease, stent placement. He presents here with a friend. He describes fatigue, shortness of breath when he is moving around, no leg swelling associated with this, no fevers no chills, no pain with inspiration, and no chest pain at all.. Treatment prior to arrival: none Related Data Home oxygen amount: none Home Medications ?Medication ?Instructions ?Recorded ?Confirmed ascorbic acid (vitamin C) 1,000 mg 1 g PO DAILY 01/22/24 09/22/24 tablet cholecalciferol (vitamin D3) 50 50 mcg PO DAILY 01/22/24 09/22/24 mcg (2,000 unit) capsule cyanocobalamin (vitamin B-12) 1,000 mcg sublingual DAILY 01/22/24 09/22/24 1,000 mcg sublingual lozenge ipratropium bromide 42 mcg (0.06 2 spray intranasal HS PRN 01/22/24 09/22/24 %) nasal spray magnesium 250 mg tablet 250 mg PO DAILY 01/22/24 09/22/24 pravastatin 10 mg tablet 10 mg PO HS 01/22/24 09/26/24 Held on 09/26/24. Instructions: Doctor's Order fluticasone propionate 50 2 spray intranasal DAILY 01/28/24 09/22/24 mcg/actuation nasal spray,suspension apixaban 5 mg tablet (Eliquis) 5 mg PO BID 09/26/24 09/26/24 Previous Rx's ?Medication ?Instructions ?Recorded prednisone 20 mg tablet 20 mg PO DAILY #30 tabs 05/26/25 Allergies Allergy/AdvReac Type Severity Reaction Status Date / Time amoxicillin Allergy Rash Verified 09/22/24 18:48 penicillin V Allergy Rash Verified 09/22/24 18:48 Review of Systems Status of ROS: Reports: 10 or more systems reviewed and unremarkable except as noted in History and below [facility] Medical History Hypotension ?I95.9 - Hypotension, unspecified (ICD-10) Insomnia ?G47.00 - Insomnia, unspecified (ICD-10) Spondylosis ?M47.9 - Spondylosis, unspecified (ICD-10) Thrombocytopenia ?D69.6 - Thrombocytopenia, unspecified (ICD-10) Hypercholesterolemia ?E78.00 - Pure hypercholesterolemia, unspecified (ICD-10) ASHD (arteriosclerotic heart disease) ?I25.10 - Atherosclerotic heart disease of [place] coronary artery without angina pectoris (ICD-10) Polymyalgia rheumatica ?M35.3 - Polymyalgia rheumatica (ICD-10) Squamous carcinoma Rheumatoid arthritis ?M06.9 - Rheumatoid arthritis, unspecified (ICD-10) Surgical History History of arthroscopy of right knee (01/16/06) ?Z98.890 - Other specified postprocedural states (ICD-10) 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) ?Z96.641 - Presence of right artificial hip joint (ICD-10) 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/19) ?Z96.642 - Presence of left artificial hip joint (ICD-10) H/O prostatectomy ?Z90.79 - Acquired absence of other genital organ(s) (ICD-10) H/O inguinal hernia repair (~2007) ?Z98.890 - Other specified postprocedural states (ICD-10) ?Z87.19 - Personal history of other diseases of the digestive system (ICD-10) 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) ?Z98.890 - Other specified postprocedural states (ICD-10) 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) ?Z96.651 - Presence of right artificial knee joint (ICD-10) Social History What is your current living situation?: I presently have a place to live Problems where you live: no known problems Problems where you live details: N/A In the past 12 months, utilities in danger of being shut off: no In past 12 months, lack of transportation kept you from medical appts, meetings, work, or getting things needed for daily living: no In the past 12 mos, have been you worried that your food would run out before you had money to buy more?: never true In the past 12 mos, the food you bought just didn't last and you didn't have money to buy more?: never true Highest level of school completed/degree received: Master's degree Smoking Status: Never smoker Do you use any of these nicotine containing products: None Second hand tobacco smoke exposure: No How often do you have a drink containing alcohol: never How often do you have six or more drinks on one occasion: Never AUDIT-C Alcohol total score: 0 Non-prescribed substance use: denies use How often does anyone, including family, friends and others, physically hurt you: never How often does anyone, including family, friends and others, insult or talk down to you: never How often does anyone, including family, friends and others, threaten you with harm: never How often does anyone, including family, friends and others, scream or curse at you: never Exam Narrative: Exam Narrative: On examination in room 6 he is in no apparent distress, speaking to me normally pupils equal round reactive to light there is no scleral icterus redness TMs are normal oropharynx normal there is no adenopathy anterior posterior chains he moves all extremities independently and well. Of liquids chest is good air entry bilaterally no wheezing crackles are noted heart sounds no clicks murmurs or gallops abdomen is soft there is no guarding no organomegaly moves all extremities independently well, no swelling of the lower extremities, Const: Vital Signs, click to edit/add: Vital Signs - 24 hr 09/26/24 19:03 09/26/24 20:59 09/26/24 20:59 Temperature 97.6 F Pulse Rate [Pulse Oximeter] 92 Pulse Rate [orthos tatic lying Right Pulse Oximeter] 95 Pulse Rate [orthos tatic sitting Righ t Pulse Oximeter] 92 Pulse Rate [orthos tatic standing Rig ht Pulse Oximeter] 104 H Respiratory Rate 16 Blood Pressure [Ri ght Upper Arm] 103/63 Blood Pressure [or thostatic lying Le ft Arm] 117/67 Blood Pressure [or thostatic sitting Left Arm] 104/66 Blood Pressure [or thostatic standing Left Arm] 114/71 Pulse Oximetry 97 96 Oxygen Delivery Me thod Room Air Course Vital Signs Vital signs: Initial Vital Signs Temperature 97.6 F 09/26/24 19:03 Temperature Source Temporal Artery Scan 09/26/24 19:03 Pulse Rate 92 09/26/24 19:03 Pulse Rhythm Irregular 09/26/24 19:03 Respiratory Rate 16 09/26/24 19:03 Blood Pressure 103/63 09/26/24 19:03 Blood Pressure Mean 76 09/26/24 19:03 Blood Pressure Position Sitting 09/26/24 19:03 Pulse Oximetry 97 09/26/24 19:03 Oxygen Delivery Method Room Air 09/26/24 19:03 Vital Signs Temperature 97.6 F 09/26/24 19:03 Pulse Rate 92 09/26/24 19:03 Respiratory Rate 16 09/26/24 19:03 Blood Pressure 103/63 09/26/24 19:03 Pulse Oximetry 97 09/26/24 19:03 Oxygen Delivery Method Room Air 09/26/24 19:03 Temperature 97.6 F 09/26/24 19:03 Pulse Rate 95 09/26/24 20:59 Respiratory Rate 16 09/26/24 19:03 Blood Pressure 117/67 09/26/24 20:59 Pulse Oximetry 96 09/26/24 20:59 Oxygen Delivery Method Room Air 09/26/24 19:03 Medications Administered Medications: Discontinued Medications Generic Name Dose Route Start Last Admin Trade Name Freq PRN Reason Stop Dose Admin Sodium Chloride 1,000 mls @ 1,000 mls/hr 09/26/24 20:45 09/26/24 20:55 0.9 % Sodium Chloride 1000 Ml IV 09/26/24 21:44 1,000 mls/hr .Q1H YAMILETH Administration MDM - SOB/Dyspnea MDM Narrative Medical decision making narrative: Life-threatening differential diagnosis includes occluded COPD exacerbation, pulmonary edema, acute coronary syndromes, pulmonary embolism, pneumonia, and pneumothorax. Other differential diagnosis considerations include asthma, bronchitis as well as other etiologies Medical Records Attestation: I reviewed the patient's medical records. Lab Data Attestation: I reviewed the patient's lab results. Lab results narrative: I reviewed the labs, his hemoglobin is mildly low at 11.8, previous 1 done a few days ago was 13, he does not have a significant bleeding, and his previous hemoglobins were all stable in thge 11 range. BNP was elevated, but chest x-ray was normal, his vital signs remained stable, his heart rate would dip down to the 70s and 80s, when resting, any clearly does not have rapid ventricular response. I explained to him that his shortness of breath is likely fatigued related to the atrial fibrillation of loss of the atrial kick. He will need to be synchronized therapy once he gets anticoagulated and or they can do a YURI study to rule out a clot. I have encouraged him to return here, if any further issues, increasing chest pain increasing heart rate or other issues associated with this. Troponins x2 were normal, Labs: Lab Results 09/26/24 09/26/24 09/26/24 Range/Units 20:58 20:59 22:38 WBC 4.34 L (4.50-11.00) K/uL RBC 3.95 L (4.30-5.90) m/uL Hgb 11.8 L (13.5-17.5) gm/dL Hct 37.2 (37.0-53.0) % MCV 94 (80-100) fL MCH 30 (26-34) pg MCHC 32 (32-36) gm/dL RDW Coeff of Jacob 14.1 (11.5-15.5) % Plt Count 127 L (140-440) K/uL Neut % (Auto) 59.5 (42.0-72.0) % Lymph % (Auto) 26.0 (20-44) % [place] % (Auto) 9.2 (0.0-11.0) % Eos % (Auto) 3.9 (0.0-7.0) % Baso % (Auto) 0.7 (0.0-3.0) % Neut # (Auto) 2.60 (1.7-7.0) K/uL Lymph # (Auto) 1.10 (0.90-2.90) K/uL [place] # (Auto) 0.40 (0.00-0.90) K/UL Eos # (Auto) 0.20 (0.00-0.50) K/uL Baso # (Auto) 0.00 (0.00-0.30) K/uL Abs Immat Gran (auto) 0.00 (0.00-0.30) K/uL Imm/Tot Granulo (auto) 0.7 % INR 1.13 H (0.91-1.10) APTT 31 (23-33) Seconds D-Dimer Quant (PE/DVT) 0.90 H (0.00-0.50) ug/ml Sodium 142 (135-149) mmol/L Potassium 3.9 (3.6-5.1) mmol/L Chloride 108 (96-114) mmol/L Carbon Dioxide 29 (20-32) mmol/L Anion Gap 5 L (7-15) mEq/L BUN 22 (7-30) mg/dL Creatinine 0.8 (0.5-1.5) mg/dL Estimated Creat Clear 57.79 Estimated GFR 88 ml/min Glucose 97 (60-115) mg/dL Calcium 9.1 (8.4-10.6) mg/dL Magnesium 2.2 (1.5-2.6) mg/dL C-Reactive Protein 7.8 H (0.5-1.0) mg/dL NT-Pro-B Natriuret Pep 4210 H (See Note) pg/mL Urine Color Yellow (Yellow) Urine Appearance Clear (Clear) Urine pH 5.5 (5.0-8.5) Ur Specific [place] 1.025 (1.000-1.030) Urine Protein 1+ A (Negative) Urine Glucose (UA) Negative (Negative) Urine Ketones Trace A (Negative) Urine Blood Trace-intact A (Negative) Urine Nitrite Negative (Negative) Urine Bilirubin Negative (Negative) Urine Urobilinogen 1.0 (0.2-1.0) Ur Leukocyte Esterase Negative (Negative) Urine RBC 2-5 A (0-2) Urine WBC 0-2 (0-5) Ur Squamous Epith Cells None (None-Few) Urine Bacteria None (None) SARS-CoV-2 (PCR) Negative SARS-CoV-2 (Negative) Influenza Type A (PCR) Negative PCR FLU A (Negative) Influenza Type B (PCR) Negative PCR FLU B (Negative) RSV (PCR) Negative PCR RSV (Negative) POC Troponin I 0.05 H 0.04 (0.01-0.04) ng/ml Imaging Data Chest x-ray: Attestation: I have reviewed the pertinent imaging results. My impression: No acute finding noted on chest x-ray. Awaiting radiologic over-read. ECG Data Attestation: I personally reviewed and interpreted this ECG as follows: ECG interpretation date: 09/26/24 Prior ECG tracings: available for review Interpretation: On EKG shows atrial fibrillation with the rapid on she has a 2118, on the EKG is a is there any down into the 70s and 80s. Pretest EKG did not show any evidence of atrial fibrillation. This is new Discharge Plan Discharge Clinical Impression: Atrial fibrillation, Breath shortness Patient Disposition: Home w/ Parent or Adult Condition: Stable Instructions: A-fib (Atrial Fibrillation) (ED), Cardiac Resynchronization Therapy (DC), Blood Thinners (ED), Cardiac Ablation (DC), Watchman Implant (DC) Additional Instructions: Home rest take your blood thinners as needed, return back here if increasing shortness of breath chest pain, syncope, or heart rate is chronically elevated. Follow up with [facility], as he will likely need a cardioversion if this continues. Activity Level: Light activity Discharge Diet: Regular Prescriptions: No Action pravastatin 10 mg tablet 10 mg PO HS ipratropium bromide 42 mcg (0.06 %) spray,non-aerosol 2 spray INTRANASAL HS PRN magnesium 250 mg tablet 250 mg PO DAILY cyanocobalamin (vitamin B-12) 1,000 mcg lozenge 1,000 mcg sublingual DAILY ascorbic acid (vitamin C) 1,000 mg tablet 1 g PO DAILY cholecalciferol (vitamin D3) 50 mcg (2,000 unit) capsule 50 mcg PO DAILY fluticasone propionate 50 mcg/actuation spray,suspension 2 spray INTRANASAL DAILY prednisone 20 mg tablet 20 mg PO DAILY Qty: 30 0RF Eliquis 5 mg tablet 5 mg PO BID Follow Up/Referrals: Chico Osorio MD [Primary Care Provider, Family Practice] Stand Alone Forms: [email or web address] Info Instructions
[2024-09-26 22:07] LABS: Troponin, Point-of-Care* 0.05 ng/ml (0.01-0.04)
[2024-09-26 22:30] VITALS: BP 104/66; PULSE 78; RESP 24; O2SAT 98
[2024-09-26 22:31] VITALS: PULSE 69; RESP 18; O2SAT 97
[2024-09-26 22:32] VITALS: BP 101/64; PULSE 75; RESP 19; O2SAT 98
[2024-09-26 22:45] VITALS: RESP 20
[2024-09-26 22:48] LABS: Troponin, Point-of-Care* 0.04 ng/ml (0.01-0.04)
== END 2024-09-26 23:04 | disposition home or self-care (01) ==
PROVIDERS: Emergency Provider Family Medicine; PCP Surgery
DX: I48.91 Unspecified atrial fibrillation (principal); R53.83 Other fatigue; R06.02 Shortness of breath; Z79.01 Long term (current) use of anticoagulants
CPT/HCPCS: 36415; 71046; 80048; 81001; 83735; 83880; 84484; 85025; 85379; 85610; 85730; 86140; 87631; 93005; 94761; 99284; 99285; J7030